=== PATIENT | female | born 1950 | race Caucasian/White ===

== ENCOUNTER → 2018-06-01 16:18 | Outpatient (CLI) | payer MEDICARE, BC, SELFPAY ==
--- NOTE | 2018-05-31 11:31 | DI.RAD_ITS ---
SYMPTOMS/DIAGNOSIS: LUQ PAIN, R10.12, LLQ PAIN, R10.32, DIVERTICULITIS, K57.92 , DIVERTICULOSIS, K57.90 ABDOMEN: Two views were obtained. The bowel gas pattern is within normal limits. No free intraperitoneal air is seen on these supine views. No other specific abnormality is seen.
== END ==
PROVIDERS: Visit Provider Internal Medicine Gastroenterology
DX: R10.12 Left upper quadrant pain (principal); R10.32 Left lower quadrant pain; K57.90 Diverticulosis of intestine, part unspecified, without perforation or abscess without bleeding
CPT/HCPCS: 74018

== ENCOUNTER 2018-06-10 01:52 | Outpatient (CLI) | payer MEDICARE, BC, SELFPAY ==
[2018-06-10 14:27] LABS: Hemoglobin A1C 5.1 % (4.5-6.2)
[2018-06-10 15:00] LABS: Anion Gap 10.8 mmol/L (3-11); BUN 13 mg/dL (7-18); CO2 28.2 mmol/L (21.0-32.0); CREATININE 0.77 mg/dL (0.55-1.02); Calcium 9.9 mg/dL (8.5-10.1); Chloride 104 mmol/L (98-107); Glucose 121 mg/dL (70-100); Potassium 3.8 mmol/L (3.5-5.1); Sodium 143 mmol/L (136-145); TSH (W/Ref FT4) 0.32 uIU/mL (0.358-3.74)
[2018-06-10 15:25] LABS: FREE T4 1.34 ng/dL (0.76-1.46)
== END 2018-06-10 02:12 ==
DX: I10 Essential (primary) hypertension (principal); E03.9 Hypothyroidism, unspecified; R73.09 Other abnormal glucose
CPT/HCPCS: 36415; 80048; 83036; 84439; 84443

== ENCOUNTER 2018-08-19 00:17 | Outpatient (CLI) | payer MEDICARE, BC, SELFPAY ==
[2018-08-19] MEDS: Breeza Beverage 473 ML BTL PO ×2 (10:12→10:13)
[2018-08-19] MEDS: Omnipaque 350 MG/ML 50 ML BTL PO (10:13)
[2018-08-19 10:26] LABS: CREATININE 0.72 mg/dL (0.55-1.02)
[2018-08-19] MEDS: Omnipaque 350 MG/ML 100 ML BTL IJ (11:10)
--- NOTE | 2018-08-19 11:12 | DI.CT_ITS ---
SYMPTOMS/DIAGNOSIS: STENOSIS OF ANUS AND RECTUM, DIVERTICULITIS CT OF THE ABDOMEN AND PELVIS: The study was carried out with an intravenous administration of 100 cc of Omnipaque 350 and oral ingestion of dilute Omnipaque. The lung bases are unremarkable. The liver, gallbladder and adrenals are unremarkable. There are diffuse areas of distal descending and sigmoid diverticulosis with evidence of an abscess and phlegmon adjacent to the lateral border of the colon. Free fluid is noted in the gutter and there is a small quantity of pelvic free fluid. The bladder is incompletely distended. The reproductive organs as visualized are intact. Bilateral ovarian cysts are seen. There is no evidence of an aortic aneurysm. No significant hernia is identified. There are degenerative changes involving the lower lumbar spine with a narrowed vacuum disc at L5-S1, discogenic sclerosis and hypertrophic spurring and a grade 2 spondylolisthesis is evident.
== END 2018-08-19 00:37 ==
PROVIDERS: Visit Provider Internal Medicine Gastroenterology
DX: K62.4 Stenosis of anus and rectum (principal); K57.30 Diverticulosis of large intestine without perforation or abscess without bleeding; Z13.89 Encounter for screening for other disorder
CPT/HCPCS: 74177; 82565; J3490; Q9967

== ENCOUNTER 2018-11-10 00:38 | Outpatient (CLI) | payer MEDICARE, BC, SELFPAY ==
[2018-11-10] MEDS: Omnipaque 350 MG/ML 50 ML BTL PO (09:38)
[2018-11-10] MEDS: Breeza Beverage 473 ML BTL PO ×2 (09:38→09:39)
[2018-11-10 09:41] LABS: Glucose 95 mg/dL (70-100)
[2018-11-10 09:55] LABS: CREATININE 1.31 mg/dL (0.55-1.02); Estimated GFR 40.38 (mL/min/1.73m2)
--- NOTE | 2018-11-10 10:43 | DI.CT_ITS ---
SYMPTOMS/DIAGNOSIS: LUQ PAIN, R10.12, LLQ PAIN, R10.32, DIVERTICULITIS, K57.[address]: CT examination of the abdomen and pelvis was performed with oral contrast only due to impaired renal function. Images obtained through the lung bases are unremarkable. The liver, spleen and pancreas are unremarkable in appearance by noncontrast criteria. The gallbladder and bile ducts appear normal. The adrenals and kidneys appear normal. No urinary tract calcification or obstruction. No significant abdominal wall hernia seen. No significant abdominal or pelvic adenopathy. The appendix is normal. There is long segment of descending and sigmoid colon with markedly thickened wall with pericolonic increased fat attenuation and stranding. The findings are consistent with diverticulitis. No evidence of perforation or abscess formation. No evidence of obstruction. Note is made of a mildly heterogeneous low attenuation 31 mm mass of the left adnexa, this likely to represent an ovarian mass and is unchanged in size and appearance in comparison with examination of 06/04/17. CONCLUSION: Findings consistent with diverticulitis, no evidence of perforation or abscess formation. No evidence of obstruction.
== END 2018-11-10 00:58 ==
PROVIDERS: Visit Provider Internal Medicine Gastroenterology
DX: R10.12 Left upper quadrant pain (principal); R10.32 Left lower quadrant pain; K57.30 Diverticulosis of large intestine without perforation or abscess without bleeding; K57.33 Diverticulitis of large intestine without perforation or abscess with bleeding; N28.9 Disorder of kidney and ureter, unspecified; N83.9 Noninflammatory disorder of ovary, fallopian tube and broad ligament, unspecified; L40.9 Psoriasis, unspecified; E03.9 Hypothyroidism, unspecified; I10 Essential (primary) hypertension; G47.00 Insomnia, unspecified; Z85.3 Personal history of malignant neoplasm of breast; Z01.812 Encounter for preprocedural laboratory examination; R73.09 Other abnormal glucose
CPT/HCPCS: 36415; 82947; 74176; 82565; 84443; Q9967

== ENCOUNTER 2019-01-31 00:51 | Outpatient (CLI) | payer MEDICARE, BC, SELFPAY ==
[2019-01-31 09:13] LABS: Anion Gap 9.1 mmol/L (3-11); BUN 17 mg/dL (7-18); CO2 24.9 mmol/L (21.0-32.0); CREATININE 1.24 mg/dL (0.55-1.02); Calcium 9.2 mg/dL (8.5-10.1); Chloride 97 mmol/L (98-107); Estimated GFR 43.02 (mL/min/1.73m2); Glucose 84 mg/dL (70-100); Sodium 131 mmol/L (136-145)
[2019-01-31] MEDS: Omnipaque 350 MG/ML 100 ML BTL IJ (10:18)
[2019-01-31] MEDS: Breeza Beverage 473 ML BTL PO (10:19)
[2019-01-31] MEDS: Omnipaque 350 MG/ML 50 ML BTL PO (10:19)
--- NOTE | 2019-01-31 10:19 | DI.CT_ITS ---
SYMPTOM/DIAGNOSIS: DIVERTICULITIS, K57.80, LLQ PAIN, R10.[address]: CT scan of the abdomen and pelvis was performed following oral and intravenous contrast material. Comparison examinations are 08/19/18 and 11/10/18. There is again seen bowel wall thickening involving a portion of the distal descending colon and the proximal sigmoid colon. There are several diverticula in the region. Overall the degree of bowel wall thickening appears slightly decreased compared to 11/10/18. There also appears to be decrease in the amount of pericolonic inflammatory change compared to the prior examination. There is however persistent encapsulated fluid collection lateral to the bowel in this region. This measures 2.8 by 2.2 cm. compared with 3.1 by 2.5 cm. The findings are most suggestive of a persistent abscess. No new abscess is appreciated. The remainder of the bowel appears grossly unremarkable. There is a persistent 3.1 cm. left adnexal cystic lesion. This is unchanged compared to the prior examination. No acute findings are seen in the lung bases. The liver, gallbladder, bile ducts, pancreas, spleen and adrenal glands are unremarkable. The kidneys, ureters and bladder are unremarkable. The abdominal aorta is of normal caliber with mild atherosclerosis. The portal, superior mesenteric and splenic veins are patent. No significant abdominal or pelvic adenopathy is appreciated. There is L 5 spondylolysis and grade I spondylolisthesis of L 5 on S 1. There is now a compression fracture of the superior endplate of L 1. This was not present on 11/10/18. There is loss of approximately a quarter of the height of the vertebral body anteriorly. No significant central spinal canal stenosis results. IMPRESSION: 1. Persistent inflammatory changes in the distal descending colon and proximal sigmoid colon consistent with acute diverticulitis. Slight decrease in size of the pericolonic abscess since 11/10/18. 2. Stable 3.1 cm. left adnexal cystic lesion. 3. Compression fracture of the superior endplate of L 1. Loss of approximately one quarter of the height of the vertebral body anteriorly is noted. This fracture is acute to subacute. It was not present on the most recent examination to show the lumbar spine from 11/10/18. If further imaging is warranted, an MRI may be obtained.
== END 2019-01-31 01:11 ==
PROVIDERS: Visit Provider Internal Medicine Gastroenterology
DX: I10 Essential (primary) hypertension (principal); R10.84 Generalized abdominal pain; R10.32 Left lower quadrant pain; N83.8 Other noninflammatory disorders of ovary, fallopian tube and broad ligament; K57.30 Diverticulosis of large intestine without perforation or abscess without bleeding; M48.56XA Collapsed vertebra, not elsewhere classified, lumbar region, initial encounter for fracture; Z01.812 Encounter for preprocedural laboratory examination
CPT/HCPCS: 80048; 74177; J3490; Q9967

== ENCOUNTER 2019-02-22 07:24 | Inpatient (IN) | payer MEDICARE, BC, SELFPAY ==
[2019-02-22] VITALS (13 sets, daily range): BP systolic 115–156; BP diastolic 64–84; PULSE 69–106; RESP 16–19; TEMP 36.9–37.4; O2SAT 96–100
--- NOTE | 2019-02-22 07:37 | W.ED.GENAD ---
Discharge Plan Disposition Patient Disposition: [facility] INPATIENT Condition: Stable Discharge Details Chief Complaint: Abd Prob Clinical Impression: Diverticulitis of large intestine with abscess Primary Care Provider: Deepthi Whitehead ED Provider: Silverio Freedman Home Meds and New Rx's Prescriptions: No Action cholecalciferol (vitamin D3) 1,000 unit capsule 1,000 unit PO DAILY RF: 0 calcium carbonate-vitamin D3 1,000 mg(2,500 mg)-800 unit tablet PO DAILY RF: 0 polyethylene glycol 3350 [Miralax] 17 gram powder in packet 17 gm PO DAILY RF: 0 allopurinol 100 mg tablet 200 mg PO DAILY Qty: 180 RF: 3 diazepam 5 mg tablet 5 mg PO BID Qty: 6 RF: 0 levothyroxine 125 mcg capsule 125 mcg PO DAILY Qty: 90 RF: 3 lisinopril 20 mg tablet 20 mg PO DAILY Qty: 90 RF: 3 Medical Decision Making <Vincenzo Colon MD - Last Filed: 02/22/19 07:42> 68 yo female who states she has a hx of diverticulitis who comes in with chief complaint of no bowel movement for 3+ days and abdominal pain she describes as distention and gassy in the lower abdomen. She denies fevers. she states she recently came off oral abx that she was more or less on for 3 months a few weeks ago. She saw her GI specialist last week and was told they can stop the abx and see what happens and that if it recurred she may need surgery for an abscess. She has a soft non distended abdomen on exam with tenderness throughout the lower abdomen without guarding or rebound. Will try and obtain records from her GI specialist at [place] to better understand what she's had done recently and obtain lab work and ct imaging to eval for possible diverticulitis, abscess, sbo. Pt remains hd stable, pt signed out to oncoming provider pending lab work and imaging results. Differential Diagnosis sbo, diverticulitis, colitis <Silverio Freedman MD - Last Filed: 02/22/19 11:12> Received signout from Dr. Colon, please see his note regarding details of the presentation, initial exam and plan of care. Patient has had a long-standing sigmoid abscess, most recently taking Bactrim twice daily for at least 2 months. She has been off of antibiotics and now presents with recurrent left-sided abdominal pain and bloating. Her CT scan reveals left lower quadrant approximately 3 cm abscess with surrounding inflammatory changes and proximal dilation of the colon. Antibiotics initiated. Seen in consultation by Dr. Tapia and will be admitted to the hospital HPI <Vincenzo Colon MD - Last Filed: 02/22/19 07:42> General Mode of arrival: ambulatory. Date/Time Provider Initiated Documentation: 02/22/19 07:29. Limitations to Documentation: no limitations. Information obtained by: patient. History of Present Illness 68 year old F presents to the emergency department with the chief complaint of abdominal pain, described as moderate, Quality is described as other (gassy), and is localized to the abdomen. Patient reports no radiation. Patient started experiencing this day(s) (3) and it has been intermittent. No relieving factors improve symptom(s), No exacerbating factors reported . Patient notes other (constipation). Related Data Home Medications Medication Instructions Recorded Confirmed calcium carbonate-vitamin D3 1,000 tab PO DAILY tab 06/02/18 10/20/18 mg (2,500 mg)-800 unit tablet cholecalciferol (vitamin D3) 1,000 1,000 unit PO DAILY 06/02/18 02/22/19 unit capsule polyethylene glycol 3350 17 gram 17 gm PO DAILY 06/02/18 02/22/19 oral powder packet allopurinol 100 mg tablet 200 mg PO DAILY #180 tab 10/20/18 02/22/19 diazepam 5 mg tablet 5 mg PO BID #6 tab 10/20/18 02/22/19 levothyroxine 125 mcg capsule 125 mcg PO DAILY #90 cap 10/20/18 02/22/19 lisinopril 20 mg tablet 20 mg PO DAILY #90 tab 10/20/18 02/22/19 Previous Rx's Medication Instructions Recorded allopurinol 100 mg tablet 200 mg PO DAILY #180 tab 10/20/18 diazepam 5 mg tablet 5 mg PO BID #6 tab 10/20/18 levothyroxine 125 mcg capsule 125 mcg PO DAILY #90 cap 10/20/18 lisinopril 20 mg tablet 20 mg PO DAILY #90 tab 10/20/18 Allergies Allergy/AdvReac Type Severity Reaction Status Date / Time ciprofloxacin AdvReac Intermediate Nausea, Verified 02/22/19 07:32 vomiting metronidazole AdvReac Intermediate Nausea Verified 02/22/19 07:32 scallop AdvReac Severe GI Upset Uncoded 02/22/19 07:32 General Stated Complaint: Abd Prob ROOPA: 3 Review of Systems <Vincenzo Colon MD - Last Filed: 02/22/19 07:42> Review of Systems All systems reviewed & are unremarkable except as noted in HPI and below Constitutional Denies chills, Denies fever(s) and Denies weakness Eyes Denies loss of vision Cardiovascular Denies chest pain and Denies dyspnea Respiratory Denies cough and Denies dyspnea Gastrointestinal Denies vomiting Musculoskeletal Denies joint swelling Integumentary/Breasts Denies rash Neurologic Denies loss of vision and Denies weakness PFSH <Vincenzo Colon MD - Last Filed: 02/22/19 07:42> Medical History Diverticulitis of large intestine with abscess (Acute) Abdominal discomfort, generalized (Acute) Psoriasis (Acute) Hypothyroidism (Acute 07/13/13) Essential hypertension (Acute 07/13/13) Diverticulosis of large intestine without hemorrhage (Acute 10/17/15) DCIS (ductal carcinoma in situ) of breast (Acute 06/29/12) Arthritis (Acute 03/23/16) Impetigo (Acute) Breast cancer Diverticulitis Hypertension Hypothyroidism Psoriasis Surgical History Breast, Lumpectomy Breast, Mastectomy Colonoscopy - IV Sedation Extraction of cataract Social History Smoking/Tobacco Use Status: Former Tobacco Use Quit Date: 09/27/03 Alcohol Intake: current Alcohol Intake frequency: 3 or more drinks per day Alcohol type: hard liquor Drug use: Never Substance use type: does not use Household members: none Pets and animals: No Sexually active: No Current gender identity: female What type of physical activity do you participate in: none Duration: 30-45 minutes/day Frequency: 5-6 times per week Dipti/Orthodoxy: Muslim Special dipti needs: No Do you feel safe at home: Yes Do you feel safe in your relationship?: Yes Exam <Vincenzo Colon MD - Last Filed: 02/22/19 07:42> Const General: no acute distress Orientation: alert HENMT Head: normal to inspection Ears: external ears normal General nose exam: external nose normal Mouth: moist mucous membranes Eyes General: appearance normal, both eyes and all related structures Neck Neck: normal visual inspection Resp Effort & Inspection: normal respiratory effort and able to speak in complete sentences Cardio Rate: regular rate GI Palpation: soft Skin General skin exam: no rashes or lesions noted Neuro General: alert and oriented x3 Extrem General: normal to inspection Psych Mental Status: mental status grossly normal Course <Vincenzo Colon MD - Last Filed: 02/22/19 07:42> Vital Signs Temperature 36.9 C 02/22/19 07:28 Pulse 106 H 02/22/19 07:28 Respiratory Rate 16 02/22/19 07:28 Blood Pressure 140/72 02/22/19 07:28 Pulse Oximetry 100 02/22/19 07:28 Temperature 36.9 C 02/22/19 07:28 Temperature Source Temporal Artery Scan 02/22/19 07:28 Pulse 106 H 02/22/19 07:28 Respiratory Rate 16 02/22/19 07:28 Blood Pressure 140/72 02/22/19 07:28 Blood Pressure Position Sitting 02/22/19 07:28 Pulse Oximetry 100 02/22/19 07:28 Oxygen Delivery Method Room Air 02/22/19 07:28 Oxygen Flow Rate 0 02/22/19 07:28 Pain Level 8 02/22/19 07:28 Sign Out <Vincenzo Colon MD - Last Filed: 02/22/19 07:42> Sign Out Data: Sign Out Comment: follow up on lab results and ct imaging and if records are obtained from her gi specialist at [facility]/ on these Last updated by Vincenzo Colon MD at 02/22/19 07:42
--- NOTE | 2019-02-22 07:38 | DI.CT_ITS ---
SYMPTOM/DIAGNOSIS: NAUSEA, CONSTIPATION, LOW ABD PAIN, F/U ABSCESS, H/O DIVERTICULITIS ABDOMEN AND PELVIC CT: The study was carried out according to the usual protocol with an intravenous administration of 60 cc's of Omnipaque 350. When compared with the prior study, again noted is a left lower quadrant diverticular abscess. The region measures up to 3 cm. in diameter on today's examination versus 2.5 cm. on the prior study. There is diffuse thickening of the colonic wall at and below the level of the abscess. Inflammatory changes are noted in the adjacent fat and there is a small quantity of free fluid. Also note is made of a sizable quantity of free fluid in the pelvis. There is considerable dilatation of the colon proximal to the abscess containing gas and fluid. The bladder is intact. When compared with the previous examination, again noted is a left adnexal cyst. There is no evidence of free air in the abdomen or pelvis. The lung bases are unremarkable. The liver, gallbladder, pancreas, spleen and kidneys are unremarkable. No small bowel abnormality is seen. SUMMARY: A persistent pericolonic abscess is noted in the left lower quadrant, today measuring up to 3 cm. in maximal diameter. There is associated inflammatory change and fluid and a large quantity of fluid is noted in the pelvis. There is considerable dilatation of the colon proximal to the abscess which would be consistent with colonic obstruction.
--- NOTE | 2019-02-22 07:42 | ED.GENADUL_ITS ---
Discharge Plan Disposition Patient Disposition: [facility] INPATIENT Condition: Stable Discharge Details Chief Complaint: Abd Prob Clinical Impression: Diverticulitis of large intestine with abscess Primary Care Provider: Deepthi Whitehead ED Provider: Silverio Freedman Home Meds and New Rx's Prescriptions: No Action cholecalciferol (vitamin D3) 1,000 unit capsule 1,000 unit PO DAILY RF: 0 calcium carbonate-vitamin D3 1,000 mg(2,500 mg)-800 unit tablet PO DAILY RF: 0 polyethylene glycol 3350 [Miralax] 17 gram powder in packet 17 gm PO DAILY RF: 0 allopurinol 100 mg tablet 200 mg PO DAILY Qty: 180 RF: 3 diazepam 5 mg tablet 5 mg PO BID Qty: 6 RF: 0 levothyroxine 125 mcg capsule 125 mcg PO DAILY Qty: 90 RF: 3 lisinopril 20 mg tablet 20 mg PO DAILY Qty: 90 RF: 3 Medical Decision Making <Vincenzo Colon MD - Last Filed: 02/22/19 07:42> 68 yo female who states she has a hx of diverticulitis who comes in with chief complaint of no bowel movement for 3+ days and abdominal pain she describes as distention and gassy in the lower abdomen. She denies fevers. she states she recently came off oral abx that she was more or less on for 3 months a few weeks ago. She saw her GI specialist last week and was told they can stop the abx and see what happens and that if it recurred she may need surgery for an abscess. She has a soft non distended abdomen on exam with tenderness throughout the lower abdomen without guarding or rebound. Will try and obtain records from her GI specialist at [place] to better understand what she's had done recently and obtain lab work and ct imaging to eval for possible diverticulitis, abscess, sbo. Pt remains hd stable, pt signed out to oncoming provider pending lab work and imaging results. Differential Diagnosis sbo, diverticulitis, colitis <Silverio Freedman MD - Last Filed: 02/22/19 11:12> Received signout from Dr. Colon, please see his note regarding details of the presentation, initial exam and plan of care. Patient has had a long-standing sigmoid abscess, most recently taking Bactrim twice daily for at least 2 months. She has been off of antibiotics and now presents with recurrent left-sided abdominal pain and bloating. Her CT scan reveals left lower quadrant approx imately 3 cm abscess with surrounding inflammatory changes and proximal dilation of the colon. Antibiotics initiated. Seen in consultation by Dr. Tapia and will be admitted to the hospital HPI <Vincenzo Colon MD - Last Filed: 02/22/19 07:42> General Mode of arrival: ambulatory . Date/Time Provider Initiated Documentation: 02/22/19 07:29 . Limitations to Documentation: no limitations . Information obtained by: patient . History of Present Illness 68 year old F presents to the emergency department with the chief complaint of abdominal pain, described as moderate, Quality is described as other (gassy), and is localized to the abdomen. Patient reports no radiation. Patient started experiencing this day(s) (3) and it has been intermittent. No relieving factors improve symptom(s), No exacerbating factors reported . Patient notes other (constipation). Related Data Home Medications Medication Instructions Recorded Confirmed calcium carbonate-vitamin D3 1,000 tab PO DAILY tab 06/02/18 10/20/18 mg (2,500 mg)-800 unit tablet cholecalciferol (vitamin D3) 1,000 1,000 unit PO DAILY 06/02/18 02/22/19 unit capsule polyethylene glycol 3350 17 gram 17 gm PO DAILY 06/02/18 02/22/19 oral powder packet allopurinol 100 mg tablet 200 mg PO DAILY #180 tab 10/20/18 02/22/19 diazepam 5 mg tablet 5 mg PO BID #6 tab 10/20/18 02/22/19 levothyroxine 125 mcg capsule 125 mcg PO DAILY #90 cap 10/20/18 02/22/19 lisinopril 20 mg tablet 20 mg PO DAILY #90 tab 10/20/18 02/22/19 Previous Rx's Medication Instructions Recorded allopurinol 100 mg tablet 200 mg PO DAILY #180 tab 10/20/18 diazepam 5 mg tablet 5 mg PO BID #6 tab 10/20/18 levothyroxine 125 mcg capsule 125 mcg PO DAILY #90 cap 10/20/18 lisinopril 20 mg tablet 20 mg PO DAILY #90 tab 10/20/18 Allergies Allergy/AdvReac Type Severity Reaction Status Date / Time ciprofloxacin AdvReac Intermediate Nausea, Verified 02/22/19 07:32 vomiting metronidazole AdvReac Intermediate Nausea Verified 02/22/19 07:32 scallop AdvReac Severe GI Upset Uncoded 02/22/19 07:32 General Stated Complaint: Abd Prob ROOPA: 3 Review of Systems <Vincenzo Colon MD - Last Filed: 02/22/19 07:42> Review of Systems All systems reviewed & are unremarkable except as noted in HPI and below Constitutional Denies chills, Denies fever(s) and Denies weakness Eyes Denies loss of vision Cardiovascular Denies chest pain and Denies dyspnea Respiratory Denies cough and Denies dyspnea Gastrointestinal Denies vomiting Musculoskeletal Denies joint swelling Integumentary/Breasts Denies rash Neurologic Denies loss of vision and Denies weakness PFSH <Vincenzo Colon MD - Last Filed: 02/22/19 07:42> Medical History Diverticulitis of large intestine with abscess (Acute) Abdominal discomfort, generalized (Acute) Psoriasis (Acute) Hypothyroidism (Acute 07/13/13) Essential hypertension (Acute 07/13/13) Diverticulosis of large intestine without hemorrhage (Acute 10/17/15) DCIS (ductal carcinoma in situ) of breast (Acute 06/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) Arthritis (Acute 03/23/16) Impetigo (Acute) Breast cancer Diverticulitis Hypertension Hypothyroidism Psoriasis Surgical History Breast, Lumpectomy Breast, Mastectomy Colonoscopy - IV Sedation Extraction of cataract Social History Smoking/Tobacco Use Status: Former Tobacco Use Quit Date: 09/27/03 Alcohol Intake: current Alcohol Intake frequency: 3 or more drinks per day Alcohol type: hard liquor Drug use: Never Substance use type: does not use Household members: none Pets and animals: No Sexually active: No Current gender identity: female What type of physical activity do you participate in: none Duration: 30-45 minutes/day Frequency: 5-6 times per week Dipti/Restorationism: Pentecostalism Special dipti needs: No Do you feel safe at home: Yes Do you feel safe in your relationship?: Yes Exam <Vincenzo Colon MD - Last Filed: 02/22/19 07:42> Const General: no acute distress Orientation: alert HENMT Head: normal to inspection Ears: external ears normal General nose exam: external nose normal Mouth: moist mucous membranes Eyes General: appearance normal, both eyes and all related structures Neck Neck: normal visual inspection Resp Effort & Inspection: normal respiratory effort and able to speak in complete sentences Cardio Rate: regular rate GI Palpation: soft Skin General skin exam: no rashes or lesions noted Neuro General: alert and oriented x3 Extrem General: normal to inspection Psych Mental Status: mental status grossly normal Course <Vincenzo Colon MD - Last Filed: 02/22/19 07:42> Vital Signs Temperature 36.9 C 02/22/19 07:28 Pulse 106 H 02/22/19 07:28 Respiratory Rate 16 02/22/19 07:28 Blood Pressure 140/72 02/22/19 07:28 Pulse Oximetry 100 02/22/19 07:28 Temperature 36.9 C 02/22/19 07:28 Temperature Source Temporal Artery Scan 02/22/19 07:28 Pulse 106 H 02/22/19 07:28 Respiratory Rate 16 02/22/19 07:28 Blood Pressure 140/72 02/22/19 07:28 Blood Pressure Position Sitting 02/22/19 07:28 Pulse Oximetry 100 02/22/19 07:28 Oxygen Delivery Method Room Air 02/22/19 07:28 Oxygen Flow Rate 0 02/22/19 07:28 Pain Level 8 02/22/19 07:28 Sign Out <Vincenzo Colon MD - Last Filed: 02/22/19 07:42> Sign Out Data: Sign Out Comment: follow up on lab results and ct imaging and if records are obtained from her gi specialist at [facility] on these Last updated by Vincenzo Colon MD at 02/22/19 07:42
[2019-02-22] MEDS: Normal Saline Flush 10 ML SYR IVP ×3 (07:48→13:35)
[2019-02-22] MEDS: Ondansetron 4 MG/2 ML VIAL IVP ×2 (07:48→15:51)
[2019-02-22] MEDS: Normal Saline 1,000 ML 1000 ML IV (07:49)
[2019-02-22 07:51] LABS: Abs Immature Grans 0.03 k/cumm (0.0-0.09); Absolute Basophil Count 0.02 k/cumm (0.0-0.2); Absolute Eosinophil Count 0.11 k/cumm (0.0-0.7); Absolute Lymphocyte Count 0.66 k/cumm (1.2-3.4); Absolute Monocyte Count 0.63 k/cumm (0.11-0.7); Absolute Neutrophil Count 7.68 k/cumm (1.2-6.7); Basophils % 0.2; Eosinophils % 1.2; HCT 38.4 % (36.0-46.0); HGB 12.8 g/dL (12.0-15.5); Immature Grans % 0.3; Lymphocytes % 7.2; Mean Corp. HGB Concentration 33.3 g/dL (32.0-36.0); Mean Corpuscular Hemoglobin 33.5 pg (27.0-33.0); Mean Corpuscular Volume 100.5 fL (80-95); Mean Platelet Volume 8.2 fL (8.0-11.0); Monocytes % 6.9; Neutrophils % 84.2; Platelet Count 366 x1000/uL (130-400); RBC 3.82 m/cumm (4.00-5.20); RBC Distribution Width 13.1 % (11.7-14.6); White Blood Cell Count 9.13 k/cumm (4.4-10.8)
[2019-02-22 08:02] LABS: ALT 35 U/L (12-78); AST 18 U/L (15-37); Albumin 3.2 g/dL (3.4-5.0); Alkaline Phosphatase 135 U/L (46-116); Anion Gap 14.7 mmol/L (3-11); BUN 12 mg/dL (7-18); Bilirubin, Total 0.4 mg/dL (0.2-1.0); CO2 22.3 mmol/L (21.0-32.0); CREATININE 0.82 mg/dL (0.55-1.02); Calcium 9.8 mg/dL (8.5-10.1); Chloride 101 mmol/L (98-107); Glucose 107 mg/dL (70-100); Lipase 67 U/L (73-393); Magnesium 1.6 mg/dL (1.8-2.4); Potassium 3.9 mmol/L (3.5-5.1); Sodium 138 mmol/L (136-145); Total Protein 6.5 g/dL (6.4-8.2)
[2019-02-22 08:06] LABS: PTT Activated 30.3 sec (21.0-31.4); Prothrombin Time 9.9 sec (9.3-11.0)
[2019-02-22] MEDS: Omnipaque 350 MG/ML 100 ML BTL IJ (09:45)
[2019-02-22] MEDS: Normal Saline 1,000 ML 125 ML IV (10:39)
[2019-02-22] MEDS: PIPERACILLIN/TAZO 3.375 GM in Normal Saline 50 ML IVPB ×3 (10:39→21:47)
--- NOTE | 2019-02-22 10:44 | W.PM.HP.N ---
Date of service: 02/22/19 Time of Service: 10:53 Assessment and Plan (1) Diverticulitis of large intestine with abscess: Current visit: Yes Status: Acute A\\ Diverticulitis with abscess. Treated as outpatient for 3 months. Attempt at drainage at [facility] [place] [place] Discussed plan with patient. I am not sure if we can avoid surgery with resection and colostomy but as she has never had IV antibiotics I think its worse trying to treat her with IV fluids, bowel rest and IV antibiotics. I also will call [facility] [place] [place] and talk to IR and see if they can review the CT scan from today and see if they feel they could try again to place a drain. I discussed with Mrs. Manzo that if she fails to improve with IV antibiotics then she unfortunately will need a sigmoid colectomy with either a colostomy or a loop ileostomy to protect the anastamosis. I would also ask for Dr. Wylie to place stents into her ureters. P\\ Admit to Med/Surg Diet: NPO IV fluids: LR @ 125cc/hr Activity: up as tolerated DVT prophilaxis: Lovenox 40 mg IV daily GI prophilaxis: Pepcid IV 20 mg BID Antibiotics: Zosyn 3.375 mg IV q6 hours Recheck labs in am Will call [facility] [place] [place] and discuss with IR Qualifiers: Diverticulitis bleeding: without bleeding Qualified Code(s): K57.20 - Diverticulitis of large intestine with perforation and abscess without bleeding History of Present Illness Chief Complaint: LLQ pain Consults Consult date: 02/22/19 Requesting physician: Silverio Freedman Narrative: Mrs Manzo is a pleasant 68 year old female who has had several episodes of diverticulitis. This last episode started 3 months ago. She has been treated with po antibiotics on and off for 3 months. She has never been hospitalized for IV antibiotics. She did have an attempt at a drain placement at [facility] [place] [place] and she tells me they took fluid out for culture but didn't leave a drain in place. She just stopped her last coearse of Bactrim 1 week ago and woke up at midnight with increasing LLQ pain. Her last BM was 3 days ago. She has had N/V and feels bloated as well as the pain. Labs show a normal WBC count, PLt's are normal. No left shift CT scan showed diverticulitis with a 3 cm abscess. There is free fluid in the pelvis. No free air. Her sigmoid colon is edematous and basically obstructed at this point. Review of Systems Constitutional Denies fever(s), Denies headache(s) and Reports poor appetite Eyes Denies change in vision ENT Denies headache(s) Cardiovascular Denies chest pain, Denies chest pain at rest, Denies chest pain with activity, Denies rapid heart rate, Denies palpitations, Denies dyspnea and Denies dyspnea on exertion Respiratory Denies cough, Denies dyspnea and Denies dyspnea on exertion Gastrointestinal Reports system reviewed and no additional complaints, except as docu Genitourinary Denies urinary frequency and Denies dysuria Neurologic Denies headache(s) Endocrine Denies palpitations Hematologic/Lymphatic Denies easy bleeding and Denies easy bruising [facility] Medical History Abdominal discomfort, generalized (Acute) Psoriasis (Acute) Hypothyroidism (Acute 07/13/13) Essential hypertension (Acute 07/13/13) Diverticulosis of large intestine without hemorrhage (Acute 10/17/15) DCIS (ductal carcinoma in situ) of breast (Acute 06/29/12) Arthritis (Acute 03/23/16) Impetigo (Acute) Breast cancer Diverticulitis Hypertension Hypothyroidism Psoriasis Surgical History Breast, Lumpectomy Breast, Mastectomy Colonoscopy - IV Sedation Extraction of cataract Social History Smoking/Tobacco Use Status: Former Tobacco Use Quit Date: 09/27/03 Alcohol Intake: current Alcohol Intake frequency: 3 or more drinks per day Alcohol type: hard liquor Drug use: Never Substance use type: does not use Household members: none Pets and animals: No Sexually active: No Current gender identity: female What type of physical activity do you participate in: none Duration: 30-45 minutes/day Frequency: 5-6 times per week Jen/Mu-Ism: Buddhism Special jen needs: No Do you feel safe at home: Yes Do you feel safe in your relationship?: Yes Meds Home Medications Medication Instructions Recorded Confirmed Type calcium carbonate-vitamin D3 1,000 tab PO DAILY tab 06/02/18 10/20/18 History mg (2,500 mg)-800 unit tablet cholecalciferol (vitamin D3) 1,000 1,000 unit PO DAILY 06/02/18 02/22/19 History unit capsule polyethylene glycol 3350 17 gram 17 gm PO DAILY 06/02/18 02/22/19 History oral powder packet allopurinol 100 mg tablet 200 mg PO DAILY #180 tab 10/20/18 02/22/19 Rx diazepam 5 mg tablet 5 mg PO BID #6 tab 10/20/18 02/22/19 Rx levothyroxine 125 mcg capsule 125 mcg PO DAILY #90 cap 10/20/18 02/22/19 Rx lisinopril 20 mg tablet 20 mg PO DAILY #90 tab 10/20/18 02/22/19 Rx Allergies Allergy/AdvReac Type Severity Reaction Status Date / Time ciprofloxacin AdvReac Intermediate Nausea, Verified 02/22/19 07:32 vomiting metronidazole AdvReac Intermediate Nausea Verified 02/22/19 07:32 scallop AdvReac Severe GI Upset Uncoded 02/22/19 07:32 Exam Const General: cooperative, comfortable and no acute distress Orientation: alert and oriented x3 HENMT Head: normocephalic and atraumatic Eyes Pupils: PERRL Resp Effort & Inspection: normal respiratory effort Auscultation: clear to auscultation bilaterally Cardio Rate: regular rate Rhythm: regular rhythm Heart Sounds: no gallops, no murmurs and no rubs GI Inspection: normal to inspection Palpation: soft, no hepatosplenomegaly and tender in the LLQ (guarding, no rebound) Auscultation: normal bowel sounds Rectal Exam - female: deferred Results Labs : 02/22/19 07:43 02/22/19 07:43 Laboratory Results - last 24 hr 02/22/19 02/22/19 02/22/19 07:43 07:43 07:43 WBC 9.13 RBC 3.82 L Hgb 12.8 Hct 38.4 MCV 100.5 H MCH 33.5 H MCHC 33.3 RDW 13.1 Plt Count 366 MPV 8.2 Immature Gran % 0.3 Neutrophils % 84.2 Lymphocytes % 7.2 Monocytes % 6.9 Eosinophils % 1.2 Basophils % 0.2 Absolute Neutrophils 7.68 H Absolute Lymphocytes 0.66 L Absolute Monocytes 0.63 Absolute Eosinophils 0.11 Absolute Basophils 0.02 PT 9.9 INR 1.0 APTT 30.3 Sodium 138 Potassium 3.9 Chloride 101 Carbon Dioxide 22.3 Anion Gap 14.7 H BUN 12 Creatinine 0.82 Estimated GFR/1.73 m2 >= 60.00 Glucose 107 H Calcium 9.8 Magnesium 1.6 L Total Bilirubin 0.4 AST 18 ALT 35 Alkaline Phosphatase 135 H Total Protein 6.5 Albumin 3.2 L Lipase 67 L Last Vital Signs Temp 98.4 F 02/22/19 07:28 Pulse 106 H 02/22/19 07:28 Resp 16 02/22/19 07:28 BP 140/72 02/22/19 07:28 Pulse Ox 100 02/22/19 07:28
[2019-02-22] MEDS: Lactated Ringers 1,000 ML 125 ML IV ×2 (12:16→23:30)
[2019-02-22] MEDS: FAMOTIDINE 20 MG/50 ML BAG 200 MG IVPB ×2 (12:16→23:35)
[2019-02-22] MEDS: MAGNESIUM SULFATE 2 GM/50 ML BAG IVPB (13:05)
[2019-02-22] MEDS: Metoprolol 5 MG/5 ML VIAL 2.5 MG IVP (13:35)
[2019-02-22] MEDS: Ketorolac 15 MG/ML VIAL IVP (15:51)
--- NOTE | 2019-02-22 16:46 | W.PM.PROGNOT ---
Date of Service Date of service: 02/22/19 Time of Service: 16:46 Assessment and Plan (1) Diverticulitis of large intestine with abscess: Current visit: Yes Status: Acute A\\ Diverticulitis with abscess and sigmoid colon obstruction P\\ [place]iscuss[place] [facility] [place] They will plan on CT guided drainage procedure on Wednesday. I will fax order, H&P and Labs to them tonight. Fax number is Paperwork has been filled out for transport [place] [facility] I am supposed to get call from byproducts extractor at [facility] [place] tomorrow for a time. Phone number for the byproducts extractor at Radiology department is Accepting Physician is Dr. Hassan Plan was discussed with Mrs Manzo and her Son Man Schneider. I again told her that she may still end up with surgery and a colostomy but as she is not septic it is worth a try to see if we can get her over the diverticulitis long enough to cool her down and then be able to do a Laparoscopic colon resection with anastamosis. She understands. Questions were entertained and answered to her satisfaction. Lovenox to start in am. Hold dose on Wednesday am. NPO after midnight on Qualifiers: Diverticulitis bleeding: without bleeding Qualified Code(s): K57.20 - Diverticulitis of large intestine with perforation and abscess without bleeding Subjective Interval history since last seen: Mrs. Manzo is doing OK. Complains mostly of intermittent crampy/gas pain. She then sometimes has to burp and that can lead to emesis of bile. No Flatus. Exam GI Inspection: normal to inspection Palpation: soft and tender in the LLQ (with guarding but no rebound) Objective Objective Clinical Data: Abnormal lab results 02/22/19 02/22/19 Range/Units 07:43 07:43 RBC 3.82 L (4.00-5.20) m/cumm MCV 100.5 H (80-95) fL MCH 33.5 H (27.0-33.0) pg Absolute Neutrophils 7.68 H (1.2-6.7) k/cumm Absolute Lymphocytes 0.66 L (1.2-3.4) k/cumm Anion Gap 14.7 H (3-11) mmol/L Glucose 107 H (70-100) mg/dL Magnesium 1.6 L (1.8-2.4) mg/dL Alkaline Phosphatase 135 H (46-116) U/L Albumin 3.2 L (3.4-5.0) g/dL Lipase 67 L (73-393) U/L Vital Signs Temperature 99.3 F 02/22/19 11:47 Temperature Source Temporal Artery Scan 02/22/19 07:28 Pulse 92 H 02/22/19 15:19 Pulse Rhythm Regular 02/22/19 16:08 Respiratory Rate 18 02/22/19 11:47 Respiratory Effort 02/22/19 16:08 Respiratory Depth Normal 02/22/19 16:08 Respiratory Pattern Normal 02/22/19 16:08 Blood Pressure 156/73 H 02/22/19 13:54 Blood Pressure Position Sitting 02/22/19 07:28 Pulse Oximetry 98 02/22/19 11:47 Oxygen Delivery Method Room Air 02/22/19 11:47 Oxygen Flow Rate 0 02/22/19 11:47 Pain Level 4 02/22/19 15:51 Intake & Output 02/21/19 02/22/19 02/22/19 23:59 11:59 23:59 Intake Total 1050 / 1402.083 352.083 / 1402.083 Balance 1050 / 1402.083 352.083 / 1402.083 Weight 64 lb 3.2 oz Intake: IV 1050 / 1402.083 352.083 / 1402.083 Other: Urine Color Yellow Voiding Methods Toilet Laboratory Results WBC 9.13 k/cumm (4.4-10.8) 02/22/19 07:43 RBC 3.82 m/cumm (4.00-5.20) L 02/22/19 07:43 Hgb 12.8 g/dL (12.0-15.5) 02/22/19 07:43 Hct 38.4 % (36.0-46.0) 02/22/19 07:43 MCV 100.5 fL (80-95) H 02/22/19 07:43 MCH 33.5 pg (27.0-33.0) H 02/22/19 07:43 MCHC 33.3 g/dL (32.0-36.0) 02/22/19 07:43 RDW 13.1 % (11.7-14.6) 02/22/19 07:43 Plt Count 366 x1000/uL (130-400) 02/22/19 07:43 MPV 8.2 fL (8.0-11.0) 02/22/19 07:43 Immature Gran % 0.3 02/22/19 07:43 Neutrophils % 84.2 02/22/19 07:43 Lymphocytes % 7.2 02/22/19 07:43 Monocytes % 6.9 02/22/19 07:43 Eosinophils % 1.2 02/22/19 07:43 Basophils % 0.2 02/22/19 07:43 Absolute Neutrophils 7.68 k/cumm (1.2-6.7) H 02/22/19 07:43 Absolute Lymphocytes 0.66 k/cumm (1.2-3.4) L 02/22/19 07:43 Absolute Monocytes 0.63 k/cumm (0.11-0.7) 02/22/19 07:43 Absolute Eosinophils 0.11 k/cumm (0.0-0.7) 02/22/19 07:43 Absolute Basophils 0.02 k/cumm (0.0-0.2) 02/22/19 07:43 PT 9.9 sec (9.3-11.0) 02/22/19 07:43 INR 1.0 (0.9-1.1) 02/22/19 07:43 APTT 30.3 sec (21.0-31.4) 02/22/19 07:43 Sodium 138 mmol/L (136-145) 02/22/19 07:43 Potassium 3.9 mmol/L (3.5-5.1) 02/22/19 07:43 Chloride 101 mmol/L (98-107) 02/22/19 07:43 Carbon Dioxide 22.3 mmol/L (21.0-32.0) 02/22/19 07:43 Anion Gap 14.7 mmol/L (3-11) H 02/22/19 07:43 BUN 12 mg/dL (7-18) 02/22/19 07:43 Creatinine 0.82 mg/dL (0.55-1.02) 02/22/19 07:43 Estimated GFR/1.73 m2 >= 60.00 (mL/min/1.73m2) 02/22/19 07:43 Glucose 107 mg/dL (70-100) H 02/22/19 07:43 Calcium 9.8 mg/dL (8.5-10.1) 02/22/19 07:43 Magnesium 1.6 mg/dL (1.8-2.4) L 02/22/19 07:43 Total Bilirubin 0.4 mg/dL (0.2-1.0) 02/22/19 07:43 AST 18 U/L (15-37) 02/22/19 07:43 ALT 35 U/L (12-78) 02/22/19 07:43 Alkaline Phosphatase 135 U/L (46-116) H 02/22/19 07:43 Total Protein 6.5 g/dL (6.4-8.2) 02/22/19 07:43 Albumin 3.2 g/dL (3.4-5.0) L 02/22/19 07:43 Lipase 67 U/L (73-393) L 02/22/19 07:43
--- NOTE | 2019-02-22 16:52 | PGE_ITS ---
Date of Service Date of service: 02/22/19 Time of Service: 16:46 Assessment and Plan (1) Diverticulitis of large intestine with abscess: Current visit: Yes Status: Acute A\\ Diverticulitis with abscess and sigmoid colon obstruction P\\ Discussed case with IR at [facility] [place]. They will plan on CT guided drainage procedure on Wednesday. I will fax order, H&P and Labs to them tonight. Fax number is Paperwork has been filled out for transport to [facility] [place] I am supposed to get call from b2b account executive at [facility] radiology tomorrow for a time. Phone number for the b2b account executive at Radiology department is Accepting Physician is Dr. Hassan Plan was discussed with Mrs Manzo and her Son Man Schneider. I again told her that she may still end up with surgery and a colostomy but as she is not septic it is worth a try to see if we can get her over the diverticulitis long enough to cool her down and then be able to do a Laparoscopic colon resection with anastamosis. She understands. Questions were entertained and answered to her satisfaction. Lovenox to start in am. Hold dose on Wednesday am. NPO after midnight on Qualifiers: Diverticulitis bleeding: without bleeding Qualified Code(s): K57.20 - Diverticulitis of large intestine with perforation and abscess without bleeding Subjective Interval history since last seen: Mrs. Manzo is doing OK. Complains mostly of intermittent crampy/gas pain. She then sometimes has to burp and that can lead to emesis of bile. No Flatus. Exam GI Inspection: normal to inspection Palpation: soft and tender in the LLQ (with guarding but no rebound) Objective Objective Clinical Data: Abnormal lab results 02/22/19 02/22/19 Range/Units 07:43 07:43 RBC 3.82 L (4.00-5.20) m/cumm MCV 100.5 H (80-95) fL MCH 33.5 H (27.0-33.0) pg Absolute Neutrophils 7.68 H (1.2-6.7) k/cumm Absolute Lymphocytes 0.66 L (1.2-3.4) k/cumm Anion Gap 14.7 H (3-11) mmol/L Glucose 107 H (70-100) mg/dL Magnesium 1.6 L (1.8-2.4) mg/dL Alkaline Phosphatase 135 H (46-116) U/L Albumin 3.2 L (3.4-5.0) g/dL Lipase 67 L (73-393) U/L Vital Signs Temperature 99.3 F 02/22/19 11:47 Temperature Source Temporal Artery Scan 02/22/19 07:28 Pulse 92 H 02/22/19 15:19 Pulse Rhythm Regular 02/22/19 16:08 Respiratory Rate 18 02/22/19 11:47 Respiratory Effort 02/22/19 16:08 Respiratory Depth Normal 02/22/19 16:08 Respiratory Pattern Normal 02/22/19 16:08 Blood Pressure 156/73 H 02/22/19 13:54 Blood Pressure Position Sitting 02/22/19 07:28 Pulse Oximetry 98 02/22/19 11:47 Oxygen Delivery Method Room Air 02/22/19 11:47 Oxygen Flow Rate 0 02/22/19 11:47 Pain Level 4 02/22/19 15:51 Intake & Output 02/21/19 02/22/19 02/22/19 23:59 11:59 23:59 Intake Total 1050 / 1402.083 352.083 / 1402.083 Balance 1050 / 1402.083 352.083 / 1402.083 Weight 64 lb 3.2 oz Intake: IV 1050 / 1402.083 352.083 / 1402.083 Other: Urine Color Yellow Voiding Methods Toilet Laboratory Results WBC 9.13 k/cumm (4.4-10.8) 02/22/19 07:43 RBC 3.82 m/cumm (4.00-5.20) L 02/22/19 07:43 Hgb 12.8 g/dL (12.0-15.5) 02/22/19 07:43 Hct 38.4 % (36.0-46.0) 02/22/19 07:43 MCV 100.5 fL (80-95) H 02/22/19 07:43 MCH 33.5 pg (27.0-33.0) H 02/22/19 07:43 MCHC 33.3 g/dL (32.0-36.0) 02/22/19 07:43 RDW 13.1 % (11.7-14.6) 02/22/19 07:43 Plt Count 366 x1000/uL (130-400) 02/22/19 07:43 MPV 8.2 fL (8.0-11.0) 02/22/19 07:43 Immature Gran % 0.3 02/22/19 07:43 Neutrophils % 84.2 02/22/19 07:43 Lymphocytes % 7.2 02/22/19 07:43 Monocytes % 6.9 02/22/19 07:43 Eosinophils % 1.2 02/22/19 07:43 Basophils % 0.2 02/22/19 07:43 Absolute Neutrophils 7.68 k/cumm (1.2-6.7) H 02/22/19 07:43 Absolute Lymphocytes 0.66 k/cumm (1.2-3.4) L 02/22/19 07:43 Absolute Monocytes 0.63 k/cumm (0.11-0.7) 02/22/19 07:43 Absolute Eosinophils 0.11 k/cumm (0.0-0.7) 02/22/19 07:43 Absolute Basophils 0.02 k/cumm (0.0-0.2) 02/22/19 07:43 PT 9.9 sec (9.3-11.0) 02/22/19 07:43 INR 1.0 (0.9-1.1) 02/22/19 07:43 APTT 30.3 sec (21.0-31.4) 02/22/19 07:43 Sodium 138 mmol/L (136-145) 02/22/19 07:43 Potassium 3.9 mmol/L (3.5-5.1) 02/22/19 07:43 Chloride 101 mmol/L (98-107) 02/22/19 07:43 Carbon Dioxide 22.3 mmol/L (21.0-32.0) 02/22/19 07:43 Anion Gap 14.7 mmol/L (3-11) H 02/22/19 07:43 BUN 12 mg/dL (7-18) 02/22/19 07:43 Creatinine 0.82 mg/dL (0.55-1.02) 02/22/19 07:43 Estimated GFR/1.73 m2 >= 60.00 (mL/min/1.73m2) 02/22/19 07:43 Glucose 107 mg/dL (70-100) H 02/22/19 07:43 Calcium 9.8 mg/dL (8.5-10.1) 02/22/19 07:43 Magnesium 1.6 mg/dL (1.8-2.4) L 02/22/19 07:43 Total Bilirubin 0.4 mg/dL (0.2-1.0) 02/22/19 07:43 AST 18 U/L (15-37) 02/22/19 07:43 ALT 35 U/L (12-78) 02/22/19 07:43 Alkaline Phosphatase 135 U/L (46-116) H 02/22/19 07:43 Total Protein 6.5 g/dL (6.4-8.2) 02/22/19 07:43 Albumin 3.2 g/dL (3.4-5.0) L 02/22/19 07:43 Lipase 67 U/L (73-393) L 02/22/19 07:43
[2019-02-22] MEDS: Simethicone 80 MG CHEW PO (17:57)
[2019-02-23] VITALS (21 sets, daily range): BP systolic 124–149; BP diastolic 68–77; PULSE 77–95; RESP 16–18; TEMP 36.6–37.7; O2SAT 96–99
[2019-02-23] MEDS: Metoprolol 5 MG/5 ML VIAL 2.5 MG IVP ×2 (02:24→09:26)
[2019-02-23] MEDS: PIPERACILLIN/TAZO 3.375 GM in Normal Saline 50 ML IVPB ×3 (04:05→21:44)
[2019-02-23] MEDS: Simethicone 80 MG CHEW PO (04:12)
[2019-02-23 07:09] LABS: Abs Immature Grans 0.05 k/cumm (0.0-0.09); Absolute Basophil Count 0.02 k/cumm (0.0-0.2); Absolute Eosinophil Count 0.11 k/cumm (0.0-0.7); Absolute Lymphocyte Count 0.88 k/cumm (1.2-3.4); Absolute Monocyte Count 0.86 k/cumm (0.11-0.7); Absolute Neutrophil Count 6.86 k/cumm (1.2-6.7); Basophils % 0.2; Eosinophils % 1.3; HCT 35.5 % (36.0-46.0); HGB 11.7 g/dL (12.0-15.5); Immature Grans % 0.6; Mean Corpuscular Hemoglobin 33.6 pg (27.0-33.0); Mean Platelet Volume 8.5 fL (8.0-11.0); Monocytes % 9.8; Neutrophils % 78.1; Platelet Count 315 x1000/uL (130-400); RBC 3.48 m/cumm (4.00-5.20); RBC Distribution Width 13.1 % (11.7-14.6); White Blood Cell Count 8.78 k/cumm (4.4-10.8)
[2019-02-23 07:19] LABS: Anion Gap 9.8 mmol/L (3-11); BUN 10 mg/dL (7-18); CO2 22.2 mmol/L (21.0-32.0); CREATININE 0.77 mg/dL (0.55-1.02); Calcium 9.3 mg/dL (8.5-10.1); Chloride 105 mmol/L (98-107); Glucose 103 mg/dL (70-100); Magnesium 1.8 mg/dL (1.8-2.4); Sodium 137 mmol/L (136-145)
--- NOTE | 2019-02-23 08:59 | W.PM.PROGNOT ---
Date of Service Date of service: 02/23/19 Time of Service: 09:00 Assessment and Plan (1) Diverticulitis of large intestine with abscess: Current visit: Yes Status: Acute Diverticulitis of large intestine with abscess started on Zosyn last night. [facility] [place] IR will be accepting Ms. Manzo today (02/23) at [address] guided abscess drainage. The accepting physician is Dr. Hassan. Prior to transfer she will be treated with IV Morphine for pain control. We will clamp and hold her IV fluids and her IV metoprolol. She has been NPO overnight and will continue this today. Reviewed and discussed the plan above with Ms. Manzo and she verbalized agreement and understanding. She is in stable condition, with intermittent increase in her abdominal pain secondary to passing gas (belching). This discomfort causes her to have nausea which subsides after a few minutes. Following her procedure at [facility] [place], she will then return to [facility] med/surg. Diet: NPO Resp. On room air, encouraged deep breathing and ambulation as tolerated. IV fluids: LR @ 125cc/hr Activity: up as tolerated DVT prophylaxis: Lovenox 40 mg IV daily GI prophylaxis: Pepcid IV 20 mg BID Antibiotics: Zosyn 3.375 mg IV q6 hours : Urinating without difficulty. Last BM was Wednesday (02/20) AM labs are stable. Qualifiers: Diverticulitis bleeding: without bleeding Qualified Code(s): K57.20 - Diverticulitis of large intestine with perforation and abscess without bleeding Subjective Interval history since last seen: The worst part is the gas pain. I am not nausea's however once I start passing gas by burping I start to get nausea's. She reports urinating without difficulty. She has been ambulating in her room independently. Denies fevers or chills. No BM. Exam Const General: cooperative, comfortable and acute distress mild (When passing gas. Intermittent during our converstation. ) Orientation: alert and oriented x3 Resp Effort & Inspection: normal respiratory effort, no audible wheezes and no cough Auscultation: clear to auscultation bilaterally Cardio Rate: regular rate Rhythm: regular rhythm Heart Sounds: S1 normal, S2 normal and no murmurs GI Inspection: distended Palpation: firm, no guarding and tender in the RLQ and in the LUQ; with no rebound tenderness Auscultation: high-pitched sounds Objective Objective Clinical Data: Abnormal lab results 02/23/19 02/23/19 Range/Units 06:50 06:50 RBC 3.48 L (4.00-5.20) m/cumm Hgb 11.7 L (12.0-15.5) g/dL Hct 35.5 L (36.0-46.0) % MCV 102.0 H (80-95) fL MCH 33.6 H (27.0-33.0) pg Absolute Neutrophils 6.86 H (1.2-6.7) k/cumm Absolute Lymphocytes 0.88 L (1.2-3.4) k/cumm Absolute Monocytes 0.86 H (0.11-0.7) k/cumm Glucose 103 H (70-100) mg/dL Vital Signs Temperature 36.6 C 02/23/19 08:20 Temperature Source Tympanic 02/23/19 08:20 Pulse 79 02/23/19 08:20 Pulse Rhythm Regular 02/23/19 07:27 Respiratory Rate 16 02/23/19 08:20 Respiratory Effort 02/23/19 07:27 Respiratory Depth Normal 02/23/19 07:27 Respiratory Pattern Normal 02/22/19 19:30 Blood Pressure 132/69 02/23/19 08:20 Blood Pressure Position Sitting 02/22/19 07:28 Pulse Oximetry 97 02/23/19 08:20 Oxygen Delivery Method Room Air 02/23/19 08:20 Oxygen Flow Rate 0 02/23/19 08:20 Pain Level 2 02/22/19 16:51 Intake & Output 02/22/19 02/23/19 02/23/19 18:59 06:59 18:59 Intake Total 1402.083 / 3045.833 1643.750 / 3045.833 Output Total 200 / 200 Balance 1402.083 / 2845.833 1443.750 / 2845.833 Weight 29.121 kg 65.2 kg Intake: IV 1402.083 / 3045.833 1643.750 / 3045.833 Output: Urine 200 / 200 Other: Urine Color Yellow Yellow Urine Appearance Clear Urine Odor None Voiding Methods Toilet Toilet Laboratory Results WBC 8.78 k/cumm (4.4-10.8) 02/23/19 06:50 RBC 3.48 m/cumm (4.00-5.20) L 02/23/19 06:50 Hgb 11.7 g/dL (12.0-15.5) L 02/23/19 06:50 Hct 35.5 % (36.0-46.0) L 02/23/19 06:50 MCV 102.0 fL (80-95) H 02/23/19 06:50 MCH 33.6 pg (27.0-33.0) H 02/23/19 06:50 MCHC 33.0 g/dL (32.0-36.0) 02/23/19 06:50 RDW 13.1 % (11.7-14.6) 02/23/19 06:50 Plt Count 315 x1000/uL (130-400) 02/23/19 06:50 MPV 8.5 fL (8.0-11.0) 02/23/19 06:50 Immature Gran % 0.6 02/23/19 06:50 Neutrophils % 78.1 02/23/19 06:50 Lymphocytes % 10.0 02/23/19 06:50 Monocytes % 9.8 02/23/19 06:50 Eosinophils % 1.3 02/23/19 06:50 Basophils % 0.2 02/23/19 06:50 Absolute Neutrophils 6.86 k/cumm (1.2-6.7) H 02/23/19 06:50 Absolute Lymphocytes 0.88 k/cumm (1.2-3.4) L 02/23/19 06:50 Absolute Monocytes 0.86 k/cumm (0.11-0.7) H 02/23/19 06:50 Absolute Eosinophils 0.11 k/cumm (0.0-0.7) 02/23/19 06:50 Absolute Basophils 0.02 k/cumm (0.0-0.2) 02/23/19 06:50 PT 9.9 sec (9.3-11.0) 02/22/19 07:43 INR 1.0 (0.9-1.1) 02/22/19 07:43 APTT 30.3 sec (21.0-31.4) 02/22/19 07:43 Sodium 137 mmol/L (136-145) 02/23/19 06:50 Potassium 4.0 mmol/L (3.5-5.1) 02/23/19 06:50 Chloride 105 mmol/L (98-107) 02/23/19 06:50 Carbon Dioxide 22.2 mmol/L (21.0-32.0) 02/23/19 06:50 Anion Gap 9.8 mmol/L (3-11) 02/23/19 06:50 BUN 10 mg/dL (7-18) 02/23/19 06:50 Creatinine 0.77 mg/dL (0.55-1.02) 02/23/19 06:50 Estimated GFR/1.73 m2 >= 60.00 (mL/min/1.73m2) 02/23/19 06:50 Glucose 103 mg/dL (70-100) H 02/23/19 06:50 Calcium 9.3 mg/dL (8.5-10.1) 02/23/19 06:50 Magnesium 1.8 mg/dL (1.8-2.4) 02/23/19 06:50 Total Bilirubin 0.4 mg/dL (0.2-1.0) 02/22/19 07:43 AST 18 U/L (15-37) 02/22/19 07:43 ALT 35 U/L (12-78) 02/22/19 07:43 Alkaline Phosphatase 135 U/L (46-116) H 02/22/19 07:43 Total Protein 6.5 g/dL (6.4-8.2) 02/22/19 07:43 Albumin 3.2 g/dL (3.4-5.0) L 02/22/19 07:43 Lipase 67 U/L (73-393) L 02/22/19 07:43
[2019-02-23] MEDS: Lactated Ringers 1,000 ML 125 ML IV ×3 (09:00→23:55)
[2019-02-23] MEDS: Normal Saline Flush 10 ML SYR IVP ×4 (09:26→19:16)
[2019-02-23] MEDS: Levothyroxine 100 MCG VIAL 75 MCG IVP (09:26)
[2019-02-23] MEDS: FAMOTIDINE 20 MG/50 ML BAG 200 MG IVPB ×2 (12:05→23:50)
--- NOTE | 2019-02-23 12:19 | NUR.NOTE ---
Nursing Note: 1205: called [facility] and spoke with charge nurse, Brandy. reported that pt is a daily drinker and that last drink was on Wednesday and s/s of withdrawal may become present with in IR for procedure today. Brandy appreciated call and will assess as needed.
--- NOTE | 2019-02-23 17:31 | PDOC.CMIN ---
- If Service Date Differs Date of service: 02/23/19 Time of Service: 17:31 Care Management Initial Assess REASON FOR HOSPITALIZATION:: Diverticulitis with abscess PAST MEDICAL HISTORY/PAST SURGICAL HISTORY:: Diverticulitis, psoriasis, hypothyroidisim, essential htn, ductal carcinoma of the breast (2011), breast lumpectomy and radiation, left mastectomy, arthritis, impetigo. PREVIOUS FUNCTIONAL STATUS/SOCIAL/FAMILY SUPPORTS:: Idalia lives in her own home in [place], [place]. She has a son Nagi and his that live local and are supportive. Idalia is retired, she spent the last 20 years of her career working for a [employer] out of [email or web address]. She is independent with ADL's and transportation. CURRENT FUNCTIONAL STATUS:: Idalia is sitting up in the chair she complains of abdominal discomfort and feeling of being bloated. She is engaged during assessment with CM. She states that she recently lost her Mom and her Brother and was not taking care of herself. She states she has been having difficulty over the past four months and tried several bouts of antibitoics prior to being admitted. She sees in [place] and she states she has known at some point she may need surgery to treat the abscess. ADVANCE DIRECTIVES:: None on file she states she has the paperwork and will complete it at some point. Has patient been provided with information about the portal?: Yes Did the patient sign up for the portal?: No (declines ) CODE STATUS:: Full Code INSURANCE COVERAGE / FINANCIAL ISSUES:: Medicare and BCBS CURRENT HOME/COMMUNITY SERVICES/EQUIPMENT:: No current services she does have close follow up with in [place] PRIMARY CARE PHYSICIAN:: Deepthi Whitehead NP POTENTIAL DISCHARGE NEEDS:: Follow up with primary care, babs and as directed. PATIENT/FAMILY EDUCATION NEEDS:: Discharge education, limitations and follow up plan of care. ANTICIPATED BARRIERS TO DISCHARGE:: None TRANSPORTATION:: Via private car with family at time of discharge. PLAN:: Idalia remains on IV antibioitcs and hydration. Plan is for her [place] [facility] [place] and drain the abscess. She understands the plan. Anticipate no addtional services at time of discharge. CM will continue to provide support discharge planning.
--- NOTE | 2019-02-23 17:55 | INITIAL_ITS ---
- If Service Date Differs Date of service: 02/23/19 Time of Service: 17:31 Care Management Initial Assess REASON FOR HOSPITALIZATION:: Diverticulitis with abscess PAST MEDICAL HISTORY/PAST SURGICAL HISTORY:: Diverticulitis, psoriasis, hypothyroidisim, essential htn, ductal carcinoma of the breast (2011), breast lumpectomy and radiation, left mastectomy, arthritis, impetigo. PREVIOUS FUNCTIONAL STATUS/SOCIAL/FAMILY SUPPORTS:: Idalia lives in her own home in [place], [place]. She has a son Nagi and his that live local and are supportive. Idalia is retired, she spent the last 20 years of her career working for a [email or web address] out of [employer]. She is independent with ADL's and transportation. CURRENT FUNCTIONAL STATUS:: Idalia is sitting up in the chair she complains of abdominal discomfort and feeling of being bloated. She is engaged during assessment with CM. She states that she recently lost her Mom and her Brother and was not taking care of herself. She states she has been having difficulty over the past four months and tried several bouts of antibitoics prior to being admitted. She sees in [place] and she states she has known at some point she may need surgery to treat the abscess. ADVANCE DIRECTIVES:: None on file she states she has the paperwork and will complete it at some point. Has patient been provided with information about the portal?: Yes Did the patient sign up for the portal?: No (declines ) CODE STATUS:: Full Code INSURANCE COVERAGE / FINANCIAL ISSUES:: Medicare and BCBS CURRENT HOME/COMMUNITY SERVICES/EQUIPMENT:: No current services she does have close follow up with in [place] PRIMARY CARE PHYSICIAN:: Deepthi Whitehead NP POTENTIAL DISCHARGE NEEDS:: Follow up with primary care, babs and as directed. PATIENT/FAMILY EDUCATION NEEDS:: Discharge education, limitations and follow up plan of care. ANTICIPATED BARRIERS TO DISCHARGE:: None TRANSPORTATION:: Via private car with family at time of discharge. PLAN:: Idalia remains on IV antibioitcs and hydration. Plan is for her to go to [facility] [place] for Intervent[place]ional radiology and drain the abscess. She understands the plan. Anticipate no addtional services at time of discharge. CM will continue to provide support discharge planning.
[2019-02-23] MEDS: Ketorolac 15 MG/ML VIAL IVP (19:16)
[2019-02-23] MEDS: ACETAMINOPHEN 1,000 MG/100 ML BTL 400 MG IVPB (22:10)
[2019-02-24] VITALS (12 sets, daily range): BP systolic 128–168; BP diastolic 70–83; PULSE 70–92; RESP 16–22; TEMP 36.2–37.3; O2SAT 96–99
--- NOTE | 2019-02-24 00:58 | NUR.NOTE ---
Nursing Note: Pt received from [facility] s/p drained abscess , incision on left abdomen is clean,dry and intact with LUIS drain with minimal bloody output. Temp increased to 37.9, medicated with offirmev, also Toradol IVP given for pain rated 8. and with good relief. Pt was out of bed and voided. Refused to receive Metoprolol inj as scheduled , she claimed that she had bad reactions on it when given by day shift.At 2200 hrs, drain was flushed with 5cc NS and aspirated it, scant blood streaks noted on the output. Continue to closely monitor.Call lights within reach.
[2019-02-24] MEDS: Ketorolac 15 MG/ML VIAL IVP ×2 (03:49→18:07)
[2019-02-24] MEDS: PIPERACILLIN/TAZO 3.375 GM in Normal Saline 50 ML IVPB ×4 (03:50→21:44)
[2019-02-24] MEDS: Normal Saline Flush 10 ML SYR IVP ×7 (03:50→21:45)
[2019-02-24 07:10] LABS: Abs Immature Grans 0.02 k/cumm (0.0-0.09); Absolute Basophil Count 0.02 k/cumm (0.0-0.2); Absolute Eosinophil Count 0.13 k/cumm (0.0-0.7); Absolute Lymphocyte Count 0.88 k/cumm (1.2-3.4); Absolute Monocyte Count 0.88 k/cumm (0.11-0.7); Absolute Neutrophil Count 3.71 k/cumm (1.2-6.7); Basophils % 0.4; Eosinophils % 2.3; HCT 36.5 % (36.0-46.0); HGB 11.8 g/dL (12.0-15.5); Immature Grans % 0.4; Lymphocytes % 15.6; Mean Corp. HGB Concentration 32.3 g/dL (32.0-36.0); Mean Corpuscular Hemoglobin 33.3 pg (27.0-33.0); Mean Corpuscular Volume 103.1 fL (80-95); Mean Platelet Volume 8.6 fL (8.0-11.0); Monocytes % 15.6; Neutrophils % 65.7; Platelet Count 311 x1000/uL (130-400); RBC 3.54 m/cumm (4.00-5.20); White Blood Cell Count 5.64 k/cumm (4.4-10.8)
--- NOTE | 2019-02-24 08:12 | PGE_ITS ---
Documented by User: ROSA Gerard 02/24/19 08:20 Date of Service Date of service: 02/24/19 Time of Service: 08:11 Assessment and Plan (1) Diverticulitis of large intestine with abscess: Current visit: Yes Status: Acute Diverticulitis of large intestine with abscess started on Zosyn 2 days ago. Yesterday she went to [facility] for CT guided abscess drainage and drain was left in place. She has had serous/bloody drainage from this drain. She denies feeling hungry. Diet: NPO Resp. On room air, encouraged deep breathing and ambulation as tolerated. IV fluids: LR @ 125cc/hr Activity: up as tolerated DVT prophylaxis: Lovenox 40 mg IV daily GI prophylaxis: Pepcid IV 20 mg BID Antibiotics: Zosyn 3.375 mg IV q6 hours : Urinating without difficulty. BM: x 2 small, liquid stool Qualifiers: Diverticulitis bleeding: without bleeding Qualified Code(s): K57.20 - Diverticulitis of large intestine with perforation and abscess without bleeding Subjective Patient reports: afebrile; denies vomiting Interval history since last seen: Feeling better, I am really happy with how everything went yesterday. She had 2 small BMs overnight/this morning. She complains of continued abdominal swelling/distention and associated gas pain. She denies fevers and chills. Exam Const General: cooperative and comfortable Orientation: alert and oriented x3 Resp Effort & Inspection: normal respiratory effort, no audible wheezes and no cough GI Palpation: soft, no guarding and tender in the LLQ and in the RLQ Auscultation: hypoactive bowel sounds Other: Drain in place. Objective Objective Clinical Data: Abnormal lab results 02/24/19 Range/Units 06:45 RBC 3.54 L (4.00-5.20) m/cumm Hgb 11.8 L (12.0-15.5) g/dL MCV 103.1 H (80-95) fL MCH 33.3 H (27.0-33.0) pg Absolute Lymphocytes 0.88 L (1.2-3.4) k/cumm Absolute Monocytes 0.88 H (0.11-0.7) k/cumm Vital Signs Temperature 37.0 C 02/24/19 04:00 Temperature Source Tympanic 02/24/19 04:00 Pulse 85 02/24/19 07:26 Pulse Rhythm Regular 02/24/19 04:00 Respiratory Rate 18 02/24/19 04:00 Respiratory Effort 02/24/19 04:00 Respiratory Depth Normal 02/24/19 04:00 Respiratory Pattern Normal 02/24/19 04:00 Blood Pressure 128/70 02/24/19 04:00 Blood Pressure Position Sitting 02/22/19 07:28 Pulse Oximetry 98 02/24/19 04:00 Oxygen Delivery Method Room Air 02/24/19 04:00 Oxygen Flow Rate 0 02/24/19 04:00 Pain Level 8 02/24/19 04:00 Intake & Output 02/23/19 02/24/19 02/24/19 18:59 06:59 18:59 Intake Total 795.833 / 3204.167 2408.334 / 3204.167 Output Total Balance 795.833 / 3194.167 2398.334 / 3194.167 Weight 65.2 kg Intake: IV 795.833 / 3199.167 2403.334 / 3199.167 Injectate Left Lateral Abdomen Output: Drainage Left Lateral Abdomen Other: Urine Appearance Clear Comment pt voiding ad junaid in toilet; pt was noted to void x 2 prior to leaving to [facility] patient went in toilet no hat Stool Size Small Stool Characteristics Soft Formed Voiding Methods Toilet Toilet Laboratory Results WBC 5.64 k/cumm (4.4-10.8) D 02/24/19 06:45 RBC 3.54 m/cumm (4.00-5.20) L 02/24/19 06:45 Hgb 11.8 g/dL (12.0-15.5) L 02/24/19 06:45 Hct 36.5 % (36.0-46.0) 02/24/19 06:45 MCV 103.1 fL (80-95) H 02/24/19 06:45 MCH 33.3 pg (27.0-33.0) H 02/24/19 06:45 MCHC 32.3 g/dL (32.0-36.0) 02/24/19 06:45 RDW 13.0 % (11.7-14.6) 02/24/19 06:45 Plt Count 311 x1000/uL (130-400) 02/24/19 06:45 MPV 8.6 fL (8.0-11.0) 02/24/19 06:45 Immature Gran % 0.4 02/24/19 06:45 Neutrophils % 65.7 02/24/19 06:45 Lymphocytes % 15.6 02/24/19 06:45 Monocytes % 15.6 02/24/19 06:45 Eosinophils % 2.3 02/24/19 06:45 Basophils % 0.4 02/24/19 06:45 Absolute Neutrophils 3.71 k/cumm (1.2-6.7) 02/24/19 06:45 Absolute Lymphocytes 0.88 k/cumm (1.2-3.4) L 02/24/19 06:45 Absolute Monocytes 0.88 k/cumm (0.11-0.7) H 02/24/19 06:45 Absolute Eosinophils 0.13 k/cumm (0.0-0.7) 02/24/19 06:45 Absolute Basophils 0.02 k/cumm (0.0-0.2) 02/24/19 06:45 PT 9.9 sec (9.3-11.0) 02/22/19 07:43 INR 1.0 (0.9-1.1) 02/22/19 07:43 APTT 30.3 sec (21.0-31.4) 02/22/19 07:43 Sodium 137 mmol/L (136-145) 02/23/19 06:50 Potassium 4.0 mmol/L (3.5-5.1) 02/23/19 06:50 Chloride 105 mmol/L (98-107) 02/23/19 06:50 Carbon Dioxide 22.2 mmol/L (21.0-32.0) 02/23/19 06:50 Anion Gap 9.8 mmol/L (3-11) 02/23/19 06:50 BUN 10 mg/dL (7-18) 02/23/19 06:50 Creatinine 0.77 mg/dL (0.55-1.02) 02/23/19 06:50 Estimated GFR/1.73 m2 >= 60.00 (mL/min/1.73m2) 02/23/19 06:50 Glucose 103 mg/dL (70-100) H 02/23/19 06:50 Calcium 9.3 mg/dL (8.5-10.1) 02/23/19 06:50 Magnesium 1.8 mg/dL (1.8-2.4) 02/23/19 06:50 Total Bilirubin 0.4 mg/dL (0.2-1.0) 02/22/19 07:43 AST 18 U/L (15-37) 02/22/19 07:43 ALT 35 U/L (12-78) 02/22/19 07:43 Alkaline Phosphatase 135 U/L (46-116) H 02/22/19 07:43 Total Protein 6.5 g/dL (6.4-8.2) 02/22/19 07:43 Albumin 3.2 g/dL (3.4-5.0) L 02/22/19 07:43 Lipase 67 U/L (73-393) L 02/22/19 07:43 Documented by User: Maris Motley DO 02/24/19 16:44 Assessment and Plan (1) Diverticulitis of large intestine with abscess: Current visit: Yes Status: Acute pt had lg BM today and feels better. Formed and no blood. no diarrhea. Less bloating and cramping. drain placement yest only yeided 7cc. Fluid today is serious. no appetite no fever/chlls no thrush no calf pain or swelling no dysuria cont abx cults- pd try water/ice Qualifiers: Diverticulitis bleeding: without bleeding Qualified Code(s): K57.20 - Diverticulitis of large intestine with perforation and abscess without bleeding
[2019-02-24] MEDS: Levothyroxine 100 MCG VIAL 75 MCG IVP (10:05)
[2019-02-24] MEDS: Lactated Ringers 1,000 ML 125 ML IV ×2 (10:44→20:40)
[2019-02-24] MEDS: FAMOTIDINE 20 MG/50 ML BAG 200 MG IVPB ×2 (12:00→23:33)
[2019-02-24] MEDS: Enoxaparin 40 MG/0.4 ML SYR SC (12:00)
--- NOTE | 2019-02-24 16:50 | PHARADMIT ---
Addendum entered by Nikita Lehman III 03/03/19 12:00: Pharmacy Note Subjective Eliz Sawyer CAD LIBRARIAN, Notes that patient has tolerated some clears and if she tolerates more , the TPN will begin to be weaned tomorrow, possibly. Objective VS-OK K+3.0 Na-141 Mag-1.6 Assessment PO Potassium given, Levophed dc'D, Off pressors.Epidural stopped. Plan Awaiting BOWEL FUNCTION. RETURN Addendum entered by Ifeoma Gerard 02/27/19 14:06: Pharmacy Note Subjective pt with diverticulitis of large intestines, [facility] placed drain 02/23, drain to be removed today, not much of an appetite Objective BM's recorded Assessment ketorolac stopped, Plan Original Note: Admission Pharmacy Clinical Review diverticulitis w/ abscess Code Status Full Code Current Weight 65.2 kg Renally Cleared and Narrow Therapeutic Index Meds Crcl ~53.23 mL/min current meds okay QTc Value / Action Taken n/a BP Control, Fever BP 150/80 afebrile Electrolytes reviewed within normal limits DVT Prophylaxis enoxaparin Opiate Usage / Scheduled Bowel Regimen Ordered prn/no Plt/SCr for Heparin / Enoxaparin plt 311 SCr 0.77 INR for Warfarin n/a H/H stable, WBC/Bands h/h 11.8/36.5 wbc 5.64 Antibiotic appropriateness zosyn (day 3) Cultures and Sensitivities none Surgical ABX d/c within 24 hr n/a DM control / Insulin Dosing BG 103 Heart Failure (Check EF%) (THOMPSON's, B-Block, Diuretics) metoprolol IV to PO Switch watch for change to PO meds (levothyroxine) Home Meds Reviewed -separate admin of allopurinol and levothyroxine from calcium carbonate/vitD -lisinopril may enhance the potential for allergic or hypersensitivity reactions to allopurinol Home Meds Not Ordered allopurinol, calcium/vitD. cholecalciferol, diazepam, lisinopril, miralax Comments
--- NOTE | 2019-02-24 17:12 | PDOC.CMPRO ---
- If Service Date Differs Date of service: 02/24/19 Time of Service: 17:12 Care Management Progress Note S/O: LOIS met with Idalia in the room she is alert and engaged she is visiting with her daughter in law at time of visit. She states she does not feel hungry or thirsty yet. She did have a [place] [facility] she feels the bloating and pain are much better. She reports she is having bowel movements. She is unsure if she will still need surgery to treat the abscess. CM provided disease specific education related to abscess and LUIS drain. Idalia states she does not feel ready for discharge. Her goals are to ambulate, tolerate fluids and some oral intake. She is not on her oral blood pressure medications she reports a reaction to the Lopressor IV and has been refusing it since. She reports an all over redness during the IV Lopressor that scared her. She is hopeful she will return to her oral medications once she is able to tolerate orals. A: Idalia is a 68 year old female admitted with intestinal abscess which she has been treated as an outpatient for the past four months with oral antibiotics and close follow up. P:Idalia remains on IV antibiotics and hydration. She is NPO she went to [facility] [place] and continues to have a LUIS drain.She understands the plan. Anticipate no additional services at time of discharge. CM will continue to provide support discharge planning.
[2019-02-24] MEDS: Normal Saline 500 ML 30 ML IVPB (17:15)
--- NOTE | 2019-02-24 17:21 | CMPROGNOTE_ITS ---
- If Service Date Differs Date of service: 02/24/19 Time of Service: 17:12 Care Management Progress Note S/O: LOIS met with Idalia in the room she is alert and engaged she is visiting with her daughter in law at time of visit. She states she does not feel hungry or thirsty yet. She did have a drain placed yesterday at [facility] she feels the bloating and pain are much better. She reports she is having bowel movements. She is unsure if she will still need surgery to treat the abscess. CM provided disease specific education related to abscess and LUIS drain. Idalia states she does not feel ready for discharge. Her goals are to ambulate, tolerate fluids and some oral intake. She is not on her oral blood pressure medications she reports a reaction to the Lopressor IV and has been refusing it since. She reports an all over redness during the IV Lopressor that scared her. She is hopeful she will return to her oral medications once she is able to tolerate orals. A: Idalia is a 68 year old female admitted with intestinal abscess which she has been treated as an outpatient for the past four months with oral antibiotics and close follow up. P:Idalia remains on IV antibiotics and hydration. She is NPO she went to [facility] yesterday and continues to have a LUIS drain.She understands the plan. Anticipate no additional services at time of discharge. CM will continue to provide support discharge planning.
[2019-02-24 22:43] LABS: CRP, High Sensitivity 9.17 mg/L
[2019-02-25] VITALS (9 sets, daily range): BP systolic 135–160; BP diastolic 71–81; PULSE 75–97; RESP 17–18; TEMP 36.6–37.3; O2SAT 96–100
[2019-02-25] MEDS: PIPERACILLIN/TAZO 3.375 GM in Normal Saline 50 ML IVPB ×4 (03:49→20:59)
[2019-02-25 07:04] LABS: Anion Gap 14.4 mmol/L (3-11); BUN 11 mg/dL (7-18); CO2 21.6 mmol/L (21.0-32.0); CREATININE 0.81 mg/dL (0.55-1.02); Chloride 106 mmol/L (98-107); Glucose 75 mg/dL (70-100); Magnesium 1.5 mg/dL (1.8-2.4); Potassium 3.8 mmol/L (3.5-5.1); Sodium 142 mmol/L (136-145)
[2019-02-25] MEDS: Levothyroxine 100 MCG VIAL 75 MCG IVP (08:20)
[2019-02-25] MEDS: Lactated Ringers 1,000 ML 125 ML IV ×2 (08:20→20:59)
[2019-02-25] MEDS: Normal Saline Flush 10 ML SYR IVP ×4 (08:25→20:59)
[2019-02-25] MEDS: Normal Saline 500 ML 30 ML IVPB (10:44)
[2019-02-25] MEDS: FAMOTIDINE 20 MG/50 ML BAG 200 MG IVPB (11:51)
[2019-02-25] MEDS: Enoxaparin 40 MG/0.4 ML SYR SC (11:51)
--- NOTE | 2019-02-25 13:50 | W.PM.PROGNOT ---
Date of Service Date of service: 02/25/19 Time of Service: 13:50 Assessment and Plan (1) Diverticulitis of large intestine with abscess: Current visit: Yes Status: Acute cont drain and IV abx. waiting results of cultures from [facility] will try some cl liquids and see how she does record changer to po meds. 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 dietary consult will check c diff due to diarrhea. prob more function of Dx, but has been on lots of abx lately encourage ambulation Qualifiers: Diverticulitis bleeding: without bleeding Qualified Code(s): K57.20 - Diverticulitis of large intestine with perforation and abscess without bleeding (2) Essential hypertension: Current visit: Yes Status: Acute Subjective Interval history since last seen: Pt is doing better. no headaches. No CP or SOB. no productive cough. no dysuria. no leg pain or swelling. She is having/had mult . BM. no blood. pain is little better. She is maybe feeling a little hungry adn would like to try a viv rocky. I did d/w her that there is still a chance she may rebound Dx after she comes off the IV abx and may require Sx in the future. We discussed having elective Sx in future as well. We discussed lifestyle/diet cahnges for in the future- low fiber diet when she goes home and than (if all goes well) transitioning to high fiber diet. She would like more info and consulted dietary for Wednesday. Cont IV abx. and supportive care. Exam Const General: cooperative, healthy appearing, comfortable, no acute distress, well developed and well groomed Nutritional Appearance: average body habitus and well nourished Orientation: alert, awake and oriented x3 Other: no fevers for last 24 hrs [facility] Head: normal to inspection, normocephalic and atraumatic Ears: hearing grossly normal bilaterally and external ears normal General nose exam: external nose normal Face and sinus: normal facial exam and sinuses nontender Mouth: oral mucosae normal, lip normal, tongue normal, moist mucous membranes and other (no thrush) Teeth and gingiva: dentition normal Eyes General: appearance normal, both eyes and all related structures Conjunctivae: conjunctivae normal Sclera: sclerae normal Pupils: PERRL Neck Neck: normal visual inspection and full ROM Chest Chest: normal inspection of the chest Resp Effort & Inspection: normal respiratory effort, able to speak in complete sentences, no cough, no nasal flaring, not tachypneic and no use of accessory muscles Auscultation: clear to auscultation bilaterally, no rales, no rhonchi and no wheezes Cardio Jugular venous pressure: no JVD Rate: regular rate Rhythm: regular rhythm GI Inspection: normal to inspection, no edema and distended Palpation: soft, no masses, nontender and No ascites Auscultation: normal bowel sounds Other: feels very bloated/distended. no diffuse peritonitis. drain site c/d/i. drain= serous drainage only and minimal. Do not have report back from [facility] on cultures Skin General skin exam: no rashes or lesions noted Trauma: no lacerations or abrasions Other: Justine site c/d/i. Neuro General: alert, oriented x3, oriented, gait normal, moves all extremities, no focal motor deficits and CN's II-XI intact bilaterally Cognition: normal cognition Speech: speech normal Gait: normal gait Motor: muscle tone normal throughout Extrem General: normal to inspection, full ROM and no clubbing, cyanosis or edema Psych Appearance: grossly normal and well kempt Mental Status: mental status grossly normal Speech and Movement: speech and movement normal Affect: normal affect Objective Objective Clinical Data: Abnormal lab results 02/25/19 Range/Units 06:40 Anion Gap 14.4 H (3-11) mmol/L Magnesium 1.5 L (1.8-2.4) mg/dL C-Reactive Protein 1.00 H (0.0-0.3) mg/dL Vital Signs Temperature 36.7 C 02/25/19 11:35 Temperature Source Tympanic 02/25/19 11:35 Pulse 81 02/25/19 11:35 Pulse Rhythm Regular 02/25/19 10:25 Respiratory Rate 18 02/25/19 11:35 Respiratory Effort 02/25/19 10:25 Respiratory Depth Normal 02/25/19 10:25 Respiratory Pattern Normal 02/25/19 10:25 Blood Pressure 135/75 02/25/19 11:35 Blood Pressure Position Sitting 02/22/19 07:28 Pulse Oximetry 96 02/25/19 11:35 Oxygen Delivery Method Room Air 02/25/19 11:35 Oxygen Flow Rate 0 02/25/19 11:35 Pain Level 4 02/25/19 11:35 Intake & Output 02/24/19 02/25/19 02/25/19 23:59 11:59 23:59 Intake Total 1539.833 / 3527.750 1148.167 / 1148.167 Output Total Balance 1526.833 / 3514.750 1148.167 / 1148.167 Weight 67.85 kg Intake: IV 1534.833 / 3522.750 1148.167 / 1148.167 Injectate Left Lateral Abdomen Output: Drainage Left Lateral Abdomen Other: Urine Color Pale Yellow Urine Appearance Clear Clear Urine Odor None Normal Stool Size Moderate Small Stool Characteristics Soft Soft Liquid Formed Brown Voiding Methods Toilet Toilet Laboratory Results WBC 5.64 k/cumm (4.4-10.8) D 02/24/19 06:45 RBC 3.54 m/cumm (4.00-5.20) L 02/24/19 06:45 Hgb 11.8 g/dL (12.0-15.5) L 02/24/19 06:45 Hct 36.5 % (36.0-46.0) 02/24/19 06:45 MCV 103.1 fL (80-95) H 02/24/19 06:45 MCH 33.3 pg (27.0-33.0) H 02/24/19 06:45 MCHC 32.3 g/dL (32.0-36.0) 02/24/19 06:45 RDW 13.0 % (11.7-14.6) 02/24/19 06:45 Plt Count 311 x1000/uL (130-400) 02/24/19 06:45 MPV 8.6 fL (8.0-11.0) 02/24/19 06:45 Immature Gran % 0.4 02/24/19 06:45 Neutrophils % 65.7 02/24/19 06:45 Lymphocytes % 15.6 02/24/19 06:45 Monocytes % 15.6 02/24/19 06:45 Eosinophils % 2.3 02/24/19 06:45 Basophils % 0.4 02/24/19 06:45 Absolute Neutrophils 3.71 k/cumm (1.2-6.7) 02/24/19 06:45 Absolute Lymphocytes 0.88 k/cumm (1.2-3.4) L 02/24/19 06:45 Absolute Monocytes 0.88 k/cumm (0.11-0.7) H 02/24/19 06:45 Absolute Eosinophils 0.13 k/cumm (0.0-0.7) 02/24/19 06:45 Absolute Basophils 0.02 k/cumm (0.0-0.2) 02/24/19 06:45 PT 9.9 sec (9.3-11.0) 02/22/19 07:43 INR 1.0 (0.9-1.1) 02/22/19 07:43 APTT 30.3 sec (21.0-31.4) 02/22/19 07:43 Sodium 142 mmol/L (136-145) 02/25/19 06:40 Potassium 3.8 mmol/L (3.5-5.1) 02/25/19 06:40 Chloride 106 mmol/L (98-107) 02/25/19 06:40 Carbon Dioxide 21.6 mmol/L (21.0-32.0) 02/25/19 06:40 Anion Gap 14.4 mmol/L (3-11) H 02/25/19 06:40 BUN 11 mg/dL (7-18) 02/25/19 06:40 Creatinine 0.81 mg/dL (0.55-1.02) 02/25/19 06:40 Estimated GFR/1.73 m2 >= 60.00 (mL/min/1.73m2) 02/25/19 06:40 Glucose 75 mg/dL (70-100) 02/25/19 06:40 Calcium 9.0 mg/dL (8.5-10.1) 02/25/19 06:40 Magnesium 1.5 mg/dL (1.8-2.4) L 02/25/19 06:40 Total Bilirubin 0.4 mg/dL (0.2-1.0) 02/22/19 07:43 AST 18 U/L (15-37) 02/22/19 07:43 ALT 35 U/L (12-78) 02/22/19 07:43 Alkaline Phosphatase 135 U/L (46-116) H 02/22/19 07:43 C-Reactive Protein 1.00 mg/dL (0.0-0.3) H 02/25/19 06:40 Total Protein 6.5 g/dL (6.4-8.2) 02/22/19 07:43 Albumin 3.2 g/dL (3.4-5.0) L 02/22/19 07:43 Lipase 67 U/L (73-393) L 02/22/19 07:43
[2019-02-25] MEDS: MAGNESIUM SULFATE 2 GM/50 ML BAG IVPB (14:28)
[2019-02-25] MEDS: Lisinopril 20 MG TAB PO (15:07)
--- NOTE | 2019-02-25 15:11 | PDOC.CMPRO ---
Care Management Progress Note S/O: Idalia was sitting in her chair, sipping gingerale when CM met with her. She processed many of her current life events, stressors, interests and aspirations. She was pleasant in interaction and forthcoming with information. She spoke to her recent losses, the mourning process, family dynamics and attending to her new home and community. She identified supports such as the [employer] and her family and reported looking forward to Wednesday night family dinners and the planned double burial at the [facility]. She shared concerns around ongoing medical needs and the possibility of managing a bag upon discharge. CM allowed Idalia to process and validated her feelings, CM reviewed contact information for further needs and assistant plant control operator availability. CM will continue to follow. A: Idalia is a 68 year old female admitted with intestinal abscess which she has been treated as an outpatient for the past four months with oral antibiotics and close follow up. P: Idalia remains on IV antibiotics and hydration. She is NPO though was trialed on some gingerale this evening to monitor tolerance. CM will continue to follow. Anticipate Ruthann will transport home via private vehicle with family.
--- NOTE | 2019-02-25 17:04 | CMPROGNOTE_ITS ---
Care Management Progress Note S/O: Idalia was sitting in her chair, sipping gingerale when CM met with her. She processed many of her current life events, stressors, interests and aspirations. She was pleasant in interaction and forthcoming with information. She spoke to her recent losses, the mourning process, family dynamics and attending to her new home and community. She identified supports such as the [facility] and her family and reported looking forward to Wednesday night family dinners and the planned double burial at the [facility]. She shared concerns around ongoing medical needs and the possibility of managing a bag upon discharge. CM allowed Idalia to process and validated her feelings, CM reviewed contact information for further needs and instructional coach availability. CM will continue to follow. A: Idalia is a 68 year old female admitted with intestinal abscess which she has been treated as an outpatient for the past four months with oral antibiotics and close follow up. P: Idalia remains on IV antibiotics and hydration. She is NPO though was trialed on some gingerale this evening to monitor tolerance. CM will continue to follow. Anticipate Ruthann will transport home via private vehicle with family.
[2019-02-26] MEDS: FAMOTIDINE 20 MG/50 ML BAG 200 MG IVPB ×3 (00:02→23:32)
[2019-02-26] MEDS: PIPERACILLIN/TAZO 3.375 GM in Normal Saline 50 ML IVPB ×4 (03:17→21:21)
[2019-02-26 03:40] VITALS: BP 152/81; PULSE 83; RESP 16; TEMP 36.7; O2SAT 98
[2019-02-26] MEDS: Levothyroxine 125 MCG TAB PO (05:55)
[2019-02-26] MEDS: Lactated Ringers 1,000 ML 125 ML IV ×3 (06:39→23:32)
[2019-02-26 07:25] VITALS: BP 134/78; PULSE 81; RESP 18; TEMP 37; O2SAT 99
[2019-02-26] MEDS: Lisinopril 20 MG TAB PO (08:22)
[2019-02-26] MEDS: Normal Saline 500 ML 30 ML IVPB (10:02)
[2019-02-26 10:59] VITALS: BP 162/80; PULSE 76; RESP 18; TEMP 37.3; O2SAT 98
[2019-02-26] MEDS: Enoxaparin 40 MG/0.4 ML SYR SC (11:49)
--- NOTE | 2019-02-26 12:04 | PGE_ITS ---
Date of Service Date of service: 02/26/19 Time of Service: 12:03 Assessment and Plan (1) Diverticulitis of large intestine with abscess: Current visit: Yes Status: Acute -s/p perc drain for abscess. Will check repeat CT to make sure resolution of abscess. hopefully d/c drain in am cult: rare gram + . Many neutrophils cont zosyn -DVT & GI proph -probiotics diet: cl liq pt up walking electrolytes adjusted dietary consult- pd Qualifiers: Diverticulitis bleeding: without bleeding Qualified Code(s): K57.20 - Diverticulitis of large intestine with perforation and abscess without bleeding (2) Diarrhea: Current visit: Yes Status: Acute prob combo of infection/abx and loss of nl sydney C diff neg Subjective Interval history since last seen: Pt is doing ok. no headaches. No CP or SOB. no productive cough. no dysuria. no leg pain or swelling. still have mult bm. no blood. c. diff neg. feels very bloated. tolerated viv rocky with no problems. will try cl liq today. serous coming out of drain. not really having any abdominal pain - just feels very bloated. Exam Const General: cooperative, healthy appearing, comfortable, no acute distress, well de veloped and well groomed Nutritional Appearance: average body habitus and well nourished Orientation: alert, awake and oriented x3 HENMT Head: normal to inspection, normocephalic and atraumatic Ears: hearing grossly normal bilaterally and external ears normal General nose exam: external nose normal Face and sinus: normal facial exam and sinuses nontender Mouth: oral mucosae normal, lip normal, tongue normal and moist mucous membranes Teeth and gingiva: dentition normal Eyes General: appearance normal, both eyes and all related structures Conjunctivae: conjunctivae normal Sclera: sclerae normal Pupils: PERRL Neck Neck: normal visual inspection and full ROM Chest Chest: normal inspection of the chest Resp Effort & Inspection: normal respiratory effort, able to speak in complete sentences, no cough, no nasal flaring, not tachypneic and no use of accessory muscles Auscultation: clear to auscultation bilaterally, no rales, no rhonchi and no wheezes Cardio Jugular venous pressure: no JVD Rate: regular rate Rhythm: regular rhythm GI Inspection: normal to inspection, no edema and distended Palpation: soft, no masses, tender (minimal) and No ascites Auscultation: normal bowel sounds Other: drain site c/d/i. serous from drain Skin General skin exam: no rashes or lesions noted Trauma: no lacerations or abrasions Neuro General: alert, oriented x3, oriented, gait normal, moves all extremities, no focal motor deficits and CN's II-XI intact bilaterally Cognition: normal cognition Speech: speech normal Gait: normal gait Motor: muscle tone normal throughout Extrem General: normal to inspection, full ROM and no clubbing, cyanosis or edema Psych Appearance: grossly normal and well kempt Mental Status: mental status grossly normal Speech and Movement: speech and movement normal Affect: normal affect Objective Objective Clinical Data: Vital Signs Temperature 37.3 C 02/26/19 10:59 Temperature Source Tympanic 02/26/19 10:59 Pulse 76 02/26/19 10:59 Pulse Rhythm Regular 02/26/19 09:43 Respiratory Rate 18 02/26/19 10:59 Respiratory Effort 02/26/19 09:43 Respiratory Depth Normal 02/26/19 09:43 Respiratory Pattern Normal 02/26/19 09:43 Blood Pressure 162/80 H 02/26/19 10:59 Blood Pressure Position Sitting 02/22/19 07:28 Pulse Oximetry 98 02/26/19 10:59 Oxygen Delivery Method Room Air 02/26/19 10:59 Oxygen Flow Rate 0 02/26/19 10:59 Pain Level 0 02/26/19 03:40 Comment 02/26/19 07:25 Intake & Output 02/25/19 02/26/19 02/26/19 23:59 11:59 23:59 Intake Total 1147.083 / 2295.250 1597.334 / 1597.334 Output Total 3 / 3 Balance 1144.083 / 2292.250 1597.334 / 1597.334 Weight 68.9 kg Intake: IV 902.083 / 2050.250 1597.334 / 1597.334 Oral 240 / 240 Injectate 5 / 5 Left Lateral Abdomen 5 / 5 Output: Drainage 3 / 3 Left Lateral Abdomen 3 / 3 Other: Urine Appearance Clear Clear Voiding Methods Toilet Laboratory Results WBC 5.64 k/cumm (4.4-10.8) D 02/24/19 06:45 RBC 3.54 m/cumm (4.00-5.20) L 02/24/19 06:45 Hgb 11.8 g/dL (12.0-15.5) L 02/24/19 06:45 Hct 36.5 % (36.0-46.0) 02/24/19 06:45 MCV 103.1 fL (80-95) H 02/24/19 06:45 MCH 33.3 pg (27.0-33.0) H 02/24/19 06:45 MCHC 32.3 g/dL (32.0-36.0) 02/24/19 06:45 RDW 13.0 % (11.7-14.6) 02/24/19 06:45 Plt Count 311 x1000/uL (130-400) 02/24/19 06:45 MPV 8.6 fL (8.0-11.0) 02/24/19 06:45 Immature Gran % 0.4 02/24/19 06:45 Neutrophils % 65.7 02/24/19 06:45 Lymphocytes % 15.6 02/24/19 06:45 Monocytes % 15.6 02/24/19 06:45 Eosinophils % 2.3 02/24/19 06:45 Basophils % 0.4 02/24/19 06:45 Absolute Neutrophils 3.71 k/cumm (1.2-6.7) 02/24/19 06:45 Absolute Lymphocytes 0.88 k/cumm (1.2-3.4) L 02/24/19 06:45 Absolute Monocytes 0.88 k/cumm (0.11-0.7) H 02/24/19 06:45 Absolute Eosinophils 0.13 k/cumm (0.0-0.7) 02/24/19 06:45 Absolute Basophils 0.02 k/cumm (0.0-0.2) 02/24/19 06:45 PT 9.9 sec (9.3-11.0) 02/22/19 07:43 INR 1.0 (0.9-1.1) 02/22/19 07:43 APTT 30.3 sec (21.0-31.4) 02/22/19 07:43 Sodium 142 mmol/L (136-145) 02/25/19 06:40 Potassium 3.8 mmol/L (3.5-5.1) 02/25/19 06:40 Chloride 106 mmol/L (98-107) 02/25/19 06:40 Carbon Dioxide 21.6 mmol/L (21.0-32.0) 02/25/19 06:40 Anion Gap 14.4 mmol/L (3-11) H 02/25/19 06:40 BUN 11 mg/dL (7-18) 02/25/19 06:40 Creatinine 0.81 mg/dL (0.55-1.02) 02/25/19 06:40 Estimated GFR/1.73 m2 >= 60.00 (mL/min/1.73m2) 02/25/19 06:40 Glucose 75 mg/dL (70-100) 02/25/19 06:40 Calcium 9.0 mg/dL (8.5-10.1) 02/25/19 06:40 Magnesium 1.5 mg/dL (1.8-2.4) L 02/25/19 06:40 Total Bilirubin 0.4 mg/dL (0.2-1.0) 02/22/19 07:43 AST 18 U/L (15-37) 02/22/19 07:43 ALT 35 U/L (12-78) 02/22/19 07:43 Alkaline Phosphatase 135 U/L (46-116) H 02/22/19 07:43 C-Reactive Protein 1.00 mg/dL (0.0-0.3) H 02/25/19 06:40 Total Protein 6.5 g/dL (6.4-8.2) 02/22/19 07:43 Albumin 3.2 g/dL (3.4-5.0) L 02/22/19 07:43 Lipase 67 U/L (73-393) L 02/22/19 07:43
--- NOTE | 2019-02-26 14:16 | PDOC.CMPRO ---
Care Management Progress Note S/O: Idalia remains pleasant in interaction, her diet was advanced to clear liquids today. She continues to be closely monitored. CM continues to follow and support Idalia while inpatient at [facility]. A: Idalia is a 68 year old female admitted with intestinal abscess which she has been treated as an outpatient for the past four months with oral antibiotics and close follow up. P: Idalia remains on IV antibiotics and hydration. Diet advanced to clear liquids to monitor tolerance; Idalia is still reporting feeling bloated which is consistent from admission. CM will continue to follow. Anticipate Ruthann will transport home via private vehicle with family.
--- NOTE | 2019-02-26 14:20 | CMPROGNOTE_ITS ---
Care Management Progress Note S/O: Idalia remains pleasant in interaction, her diet was advanced to clear liquids today. She continues to be closely monitored. CM continues to follow and support Idalia while inpatient at [facility]. A: Idalia is a 68 year old female admitted with intestinal abscess which she has been treated as an outpatient for the past four months with oral antibiotics and close follow up. P: Idalia remains on IV antibiotics and hydration. Diet advanced to clear liquids to monitor tolerance; Idalia is still reporting feeling bloated which is consistent from admission. CM will continue to follow. Anticipate Ruthann will transport home via private vehicle with family.
[2019-02-26] MEDS: Normal Saline Flush 10 ML SYR IVP ×4 (14:51→23:33)
--- NOTE | 2019-02-26 15:00 | DI.CT_ITS ---
SYMPTOM/DIAGNOSIS: F/U ABSCESS ABDOMEN AND PELVIC CT: There has been interval development of significant new abdominal ascites and there is marked new wall edema and mucosal hyperenhancement of the mid to distal ileum with associated mesenteric edema in this area. No gross obstruction is seen. The findings as described are concerning for ischemic process although other etiologies are not excluded. CONCLUSION: 1. Interval drainage of left paracolic abscess by pigtail catheter. 2. Marked interval increase in abdominal ascites. 3. New abnormal appearance of mid to distal ileum raising the possibility of ischemic ileitis. Please see above discussion. No gross evidence of obstruction.
[2019-02-26 15:39] VITALS: BP 159/80; PULSE 83; RESP 18; TEMP 36.7; O2SAT 99
--- NOTE | 2019-02-26 15:42 | DI.VRAD_ITS ---
Addendum created by Leonel Rios MD on 02/26/2019 5:53:37 PM EDT I personally discussed the findings with Maris Motley on 02/26/2019 at 5:53 PM EDT by telephone conference call. Initial report created on 02/26/2019 3:42:20 PM EDT EXAM: CT Abdomen and Pelvis With Contrast EXAM DATE/TIME: 02/26/2019 2:45 PM CLINICAL HISTORY: 68 years old, female; Condition or disease; Abscess; Abscess location: Abdomen; Patient HX: Follow-up on abcess TECHNIQUE: Imaging protocol: Axial computed tomography images of the abdomen and pelvis with intravenous contrast. Coronal and sagittal reformatted images were created and reviewed. Radiation optimization: All CT scans at this facility use at least one of these dose optimization techniques: automated exposure control; mA and/or kV adjustment per patient size (includes targeted exams where dose is matched to clinical indication); or iterative reconstruction. Contrast material: OMNI-PAQUE 350; Contrast volume: 100 ml; Contrast route: IV; COMPARISON: CT ABDOMEN PELVIS W 02/22/2019 9:29 AM FINDINGS: Lungs: Minimal dependent atelectasis within the lung bases. Pleural space: Tiny bilateral pleural effusions, new. ABDOMEN: Liver: Unremarkable. No mass. Gallbladder and bile ducts: Unremarkable. No calcified stones. No ductal dilation. Pancreas: Unremarkable. No ductal dilation. Spleen: Unremarkable. No splenomegaly. Adrenals: Normal. No mass. Kidneys and ureters: Unremarkable. No stones. No hydronephrosis. Stomach and bowel: Colonic diverticulosis and persistent mild wall thickening of the distal descending and proximal sigmoid colon. No new diverticulitis identified. The colonic distention present on the prior examination has improved. There is new low density wall thickening and mucosal hyperenhancement within the distal third of the ileum (with sparing of the terminal ileum) along with mesenteric edema and mild interloop fluid. The findings are suspicious for mesenteric ischemia with ischemic enteritis. Differential diagnosis includes infectious and inflammatory enteritis. No pneumatosis. Dilatation of proximal small bowel loops is new and likely secondary to early or partial small bowel obstruction (versus intestinal ileus). Appendix: No evidence of appendicitis. PELVIS: Bladder: Unremarkable as visualized. Reproductive: Unremarkable as visualized. ABDOMEN and PELVIS: Intraperitoneal space: Status post drainage of left paracolic gutter abscess with pigtail catheter in the collapsed abscess cavity. Moderate abdominal and pelvic ascites, increased in volume compared to the prior study. No free intraperitoneal air. No new abscess. Bones/joints: Degenerative disc disease and facet arthrosis at L5-S1. Bilateral L5 chronic pars defects with grade 1 anterolisthesis of L5. Anterior wedge fracture deformity of the superior endplate of L1, unchanged. Soft tissues: Subcutaneous edema throughout the abdomen and pelvis. Vasculature: The SMA and SMV are patent. Lymph nodes: Unremarkable. No enlarged lymph nodes. IMPRESSION: 1. Status post percutaneous drainage of left paracolic abscess with drainage catheter pigtail loop within collapsed abscess cavity. 2. Colonic diverticulosis and persistent mild wall thickening of the descending colon. 3. Abdominal and pelvic ascites, slightly increased in volume compared to the prior study. 4. Findings suspicious for mesenteric ischemia and ischemic ileitis, new. Differential diagnosis includes infectious and inflammatory enteritis. 5. New dilatation of small bowel proximal to the abnormal segment of ileum, likely secondary to early or partial small bowel obstruction (versus intestinal ileus). Dictated and Authenticated by: Leonel Rios MD. Ordering:LUZ MARIA Pollock MD
[2019-02-26 19:34] VITALS: BP 177/92; PULSE 80; RESP 18; TEMP 37.1; O2SAT 99
--- NOTE | 2019-02-26 22:37 | PGE_ITS ---
Date of Service Date of service: 02/26/19 Time of Service: 22:58 Subjective Interval history since last seen: pt had CT done and reviewed results w/ VRADS. They had concern for ischemic bowel.. The bowel wall of the last 15cm of ileum is very thickened nad assoc. changes in mesentery. signif amount of ascites noted in abdom. Colon wall shows less swelling and edema. The celiac access and mesenteric vessels are widely patent and no atherosclerosis in vessel patel. -The abscess has resolved. There does not look like there is any damage to the bowel from drain placement. Pt has been doing better- up walking around. + diarrhea, but no bleeding. T olerating some po's. Not much appetite b/c feels bloated. passing gas and stool. No abdom pain. no fever/chills. no N/v. urinated ok. minimal output from drain and all serous. unclear about the thickening of the bowel wall in ileum and fluid in abdom. pt on abx. C. diff neg clinically pt is doing better d/c drain in am cont current course of care Objective Objective Clinical Data: Vital Signs Temperature 36.7 C 02/26/19 15:39 Temperature Source Tympanic 02/26/19 15:39 Pulse 83 02/26/19 15:39 Pulse Rhythm Regular 02/26/19 09:43 Respiratory Rate 18 02/26/19 15:39 Respiratory Effort 02/26/19 09:43 Respiratory Depth Normal 02/26/19 09:43 Respiratory Pattern Normal 02/26/19 09:43 Blood Pressure 159/80 H 02/26/19 15:39 Blood Pressure Position Sitting 02/22/19 07:28 Pulse Oximetry 99 02/26/19 15:39 Oxygen Delivery Method Room Air 02/26/19 15:39 Oxygen Flow Rate 0 02/26/19 15:39 Pain Level 0 02/26/19 15:39 Comment 02/26/19 07:25 Intake & Output 02/25/19 02/26/19 02/26/19 23:59 11:59 23:59 Intake Total 1147.083 / 2295.250 1597.334 / 2133.584 536.25 / 2133.584 Output Total 3 / 3 4 / 4 Balance 1144.083 / 2292.250 1597.334 / 2129.584 532.25 / 2129.584 Weight 68.9 kg Intake: IV 902.083 / 0.250 1597.334 / 2127.584 531.25 / 2127.584 Oral 240 / 240 Injectate Left Lateral Abdomen Output: Drainage Left Lateral Abdomen Other: Urine Appearance Clear Clear Voiding Methods Toilet Laboratory Results WBC 5.64 k/cumm (4.4-10.8) D 02/24/19 06:45 RBC 3.54 m/cumm (4.00-5.20) L 02/24/19 06:45 Hgb 11.8 g/dL (12.0-15.5) L 02/24/19 06:45 Hct 36.5 % (36.0-46.0) 02/24/19 06:45 MCV 103.1 fL (80-95) H 02/24/19 06:45 MCH 33.3 pg (27.0-33.0) H 02/24/19 06:45 MCHC 32.3 g/dL (32.0-36.0) 02/24/19 06:45 RDW 13.0 % (11.7-14.6) 02/24/19 06:45 Plt Count 311 x1000/uL (130-400) 02/24/19 06:45 MPV 8.6 fL (8.0-11.0) 02/24/19 06:45 Immature Gran % 0.4 02/24/19 06:45 Neutrophils % 65.7 02/24/19 06:45 Lymphocytes % 15.6 02/24/19 06:45 Monocytes % 15.6 02/24/19 06:45 Eosinophils % 2.3 02/24/19 06:45 Basophils % 0.4 02/24/19 06:45 Absolute Neutrophils 3.71 k/cumm (1.2-6.7) 02/24/19 06:45 Absolute Lymphocytes 0.88 k/cumm (1.2-3.4) L 02/24/19 06:45 Absolute Monocytes 0.88 k/cumm (0.11-0.7) H 02/24/19 06:45 Absolute Eosinophils 0.13 k/cumm (0.0-0.7) 02/24/19 06:45 Absolute Basophils 0.02 k/cumm (0.0-0.2) 02/24/19 06:45 PT 9.9 sec (9.3-11.0) 02/22/19 07:43 INR 1.0 (0.9-1.1) 02/22/19 07:43 APTT 30.3 sec (21.0-31.4) 02/22/19 07:43 Sodium 142 mmol/L (136-145) 02/25/19 06:40 Potassium 3.8 mmol/L (3.5-5.1) 02/25/19 06:40 Chloride 106 mmol/L (98-107) 02/25/19 06:40 Carbon Dioxide 21.6 mmol/L (21.0-32.0) 02/25/19 06:40 Anion Gap 14.4 mmol/L (3-11) H 02/25/19 06:40 BUN 11 mg/dL (7-18) 02/25/19 06:40 Creatinine 0.81 mg/dL (0.55-1.02) 02/25/19 06:40 Estimated GFR/1.73 m2 >= 60.00 (mL/min/1.73m2) 02/25/19 06:40 Glucose 75 mg/dL (70-100) 02/25/19 06:40 Calcium 9.0 mg/dL (8.5-10.1) 02/25/19 06:40 Magnesium 1.5 mg/dL (1.8-2.4) L 02/25/19 06:40 Total Bilirubin 0.4 mg/dL (0.2-1.0) 02/22/19 07:43 AST 18 U/L (15-37) 02/22/19 07:43 ALT 35 U/L (12-78) 02/22/19 07:43 Alkaline Phosphatase 135 U/L (46-116) H 02/22/19 07:43 C-Reactive Protein 1.00 mg/dL (0.0-0.3) H 02/25/19 06:40 Total Protein 6.5 g/dL (6.4-8.2) 02/22/19 07:43 Albumin 3.2 g/dL (3.4-5.0) L 02/22/19 07:43 Lipase 67 U/L (73-393) L 02/22/19 07:43
[2019-02-26 23:36] VITALS: BP 173/85; PULSE 78; RESP 16; TEMP 37.2; O2SAT 95
[2019-02-26] MEDS: Ketorolac 15 MG/ML VIAL IVP (23:45)
--- NOTE | 2019-02-27 00:21 | NUR.NOTE ---
Pt state she is feeling more bloated than in earlier in the evening and also feeling a lot of gas in the stomach area, ww went for a walk. Abdominal girt at this time is 43 inches.
[2019-02-27] MEDS: PIPERACILLIN/TAZO 3.375 GM in Normal Saline 50 ML IVPB ×4 (03:35→22:29)
[2019-02-27] MEDS: Normal Saline Flush 10 ML SYR IVP ×5 (03:36→15:27)
[2019-02-27 04:54] VITALS: BP 160/80; PULSE 71; RESP 18; TEMP 36.9; O2SAT 96
[2019-02-27] MEDS: Levothyroxine 125 MCG TAB PO (05:28)
[2019-02-27] MEDS: Lactated Ringers 1,000 ML 125 ML IV (06:36)
[2019-02-27 07:03] LABS: Absolute Basophil Count 0.03 k/cumm (0.0-0.2); Absolute Eosinophil Count 0.27 k/cumm (0.0-0.7); Absolute Lymphocyte Count 1.06 k/cumm (1.2-3.4); Absolute Monocyte Count 0.69 k/cumm (0.11-0.7); Absolute Neutrophil Count 4.51 k/cumm (1.2-6.7); Basophils % 0.5; Eosinophils % 4.1; HCT 35.1 % (36.0-46.0); HGB 11.8 g/dL (12.0-15.5); Immature Grans % 1.5; Lymphocytes % 15.9; Mean Corp. HGB Concentration 33.6 g/dL (32.0-36.0); Mean Corpuscular Hemoglobin 33.3 pg (27.0-33.0); Mean Corpuscular Volume 99.2 fL (80-95); Mean Platelet Volume 8.8 fL (8.0-11.0); Monocytes % 10.4; Neutrophils % 67.6; Platelet Count 304 x1000/uL (130-400); RBC 3.54 m/cumm (4.00-5.20); RBC Distribution Width 12.7 % (11.7-14.6); White Blood Cell Count 6.66 k/cumm (4.4-10.8)
--- NOTE | 2019-02-27 07:15 | DI.RAD_ITS ---
SYMPTOM/DIAGNOSIS: SMALL BOWEL OBSTRUCTION, DIVERTICULITIS ABDOMEN AND UPRIGHT: Three views were obtained. Minimal contrast noted in the urinary tract following yesterday's contrast enhanced CT. Previously noted left pigtail catheter noted in position. Marked small bowel and colonic dilatation as noted on CT of 02/26. No gross free intraperitoneal air. CONCLUSION: Findings consistent with severe ileus obstruction.
--- NOTE | 2019-02-27 07:18 | NUR.NOTE ---
Nursing Note: Late entry for WednesdayFebruary 26. Expressed concern to the Dr about the drip rate of ringers lactate . I expressed concern in relationship from to patients c/o bloating. Awaiting orders
[2019-02-27 07:20] LABS: Anion Gap 15.5 mmol/L (3-11); BUN 6 mg/dL (7-18); C-Reactive Protein 0.51 mg/dL (0.0-0.3); CO2 19.5 mmol/L (21.0-32.0); CREATININE 0.72 mg/dL (0.55-1.02); Calcium 8.5 mg/dL (8.5-10.1); Chloride 106 mmol/L (98-107); Glucose 69 mg/dL (70-100); Magnesium 1.4 mg/dL (1.8-2.4); Potassium 3.4 mmol/L (3.5-5.1); Sodium 141 mmol/L (136-145)
[2019-02-27 07:30] VITALS: BP 157/93; PULSE 84; RESP 18; TEMP 37; O2SAT 99
[2019-02-27] MEDS: Lisinopril 20 MG TAB PO (08:07)
--- NOTE | 2019-02-27 08:13 | W.PM.PROGNOT ---
Date of Service Date of service: 02/27/19 Time of Service: 08:13 Assessment and Plan (1) Diverticulitis of large intestine with abscess: Current visit: Yes Status: Acute Patient is doing well. Denies abdominal pain. Reports feeling full which has been inhibiting her ability to take in PO fluids/foods. She is having small, liquid BMs. DIET- Poor PO intake. Continue Clear liquids as tolerated DRAIN- Currently minimal output of bloody/serous. Per Dr. Motley will D/C this later today. ACTIVITY- Continue activity as tolerated Ambulating in the hallway. Antibiotics- Continue Zosyn. Disposition- Will D/C home on PO antibiotics Qualifiers: Diverticulitis bleeding: without bleeding Qualified Code(s): K57.20 - Diverticulitis of large intestine with perforation and abscess without bleeding Subjective Interval history since last seen: Patient reports that she is feeling fine today. She has not been able to increase her PO intake secondary to lack of hunger and early satiety. I am full. (+) small, liquid BMs. Exam Const General: cooperative, healthy appearing and comfortable Orientation: alert and oriented x3 Resp Effort & Inspection: normal respiratory effort, no audible wheezes and no cough GI Inspection: normal to inspection and non-distended Palpation: soft, no guarding and nontender Auscultation: hypoactive bowel sounds Objective Objective Clinical Data: Abnormal lab results 02/27/19 02/27/19 Range/Units 06:25 06:25 RBC 3.54 L (4.00-5.20) m/cumm Hgb 11.8 L (12.0-15.5) g/dL Hct 35.1 L (36.0-46.0) % MCV 99.2 H (80-95) fL MCH 33.3 H (27.0-33.0) pg Absolute Lymphocytes 1.06 L (1.2-3.4) k/cumm Potassium 3.4 L (3.5-5.1) mmol/L Carbon Dioxide 19.5 L (21.0-32.0) mmol/L Anion Gap 15.5 H (3-11) mmol/L BUN 6 L (7-18) mg/dL Glucose 69 L (70-100) mg/dL Magnesium 1.4 L (1.8-2.4) mg/dL C-Reactive Protein 0.51 H (0.0-0.3) mg/dL Vital Signs Temperature 37.0 C 02/27/19 07:30 Temperature Source Tympanic 02/27/19 07:30 Pulse 84 02/27/19 07:30 Pulse Rhythm Regular 02/26/19 19:33 Respiratory Rate 18 02/27/19 07:30 Respiratory Effort Non-Labored 02/27/19 07:46 Respiratory Depth Normal 02/27/19 07:46 Respiratory Pattern Normal 02/27/19 07:46 Blood Pressure 157/93 H 02/27/19 07:30 Blood Pressure Position Sitting 02/22/19 07:28 Pulse Oximetry 99 02/27/19 07:30 Oxygen Delivery Method Room Air 02/27/19 07:30 Oxygen Flow Rate 0 02/27/19 07:30 Pain Level 1 02/27/19 07:30 Comment 02/26/19 07:25 Intake & Output 02/26/19 02/27/19 02/27/19 18:59 06:59 18:59 Intake Total 1063.167 / 3034.833 1971.666 / 3034.833 Output Total Balance 1059.167 / 3023.833 1964.666 / 3023.833 Weight 71.1 kg Intake: IV 1058.167 / 3019.833 1961.666 / 3019.833 Injectate Left Lateral Abdomen Output: Drainage Left Lateral Abdomen Other: Urine Color Pale Yellow Urine Appearance Clear Clear Urine Odor None Comment voided independently in the tiolet Stool Size Small Stool Characteristics Liquid Voiding Methods Toilet Toilet Laboratory Results WBC 6.66 k/cumm (4.4-10.8) 02/27/19 06:25 RBC 3.54 m/cumm (4.00-5.20) L 02/27/19 06:25 Hgb 11.8 g/dL (12.0-15.5) L 02/27/19 06:25 Hct 35.1 % (36.0-46.0) L 02/27/19 06:25 MCV 99.2 fL (80-95) H 02/27/19 06:25 MCH 33.3 pg (27.0-33.0) H 02/27/19 06:25 MCHC 33.6 g/dL (32.0-36.0) 02/27/19 06:25 RDW 12.7 % (11.7-14.6) 02/27/19 06:25 Plt Count 304 x1000/uL (130-400) 02/27/19 06:25 MPV 8.8 fL (8.0-11.0) 02/27/19 06:25 Immature Gran % 1.5 02/27/19 06:25 Neutrophils % 67.6 02/27/19 06:25 Lymphocytes % 15.9 02/27/19 06:25 Monocytes % 10.4 02/27/19 06:25 Eosinophils % 4.1 02/27/19 06:25 Basophils % 0.5 02/27/19 06:25 Absolute Neutrophils 4.51 k/cumm (1.2-6.7) 02/27/19 06:25 Absolute Lymphocytes 1.06 k/cumm (1.2-3.4) L 02/27/19 06:25 Absolute Monocytes 0.69 k/cumm (0.11-0.7) 02/27/19 06:25 Absolute Eosinophils 0.27 k/cumm (0.0-0.7) 02/27/19 06:25 Absolute Basophils 0.03 k/cumm (0.0-0.2) 02/27/19 06:25 PT 9.9 sec (9.3-11.0) 02/22/19 07:43 INR 1.0 (0.9-1.1) 02/22/19 07:43 APTT 30.3 sec (21.0-31.4) 02/22/19 07:43 Sodium 141 mmol/L (136-145) 02/27/19 06:25 Potassium 3.4 mmol/L (3.5-5.1) L 02/27/19 06:25 Chloride 106 mmol/L (98-107) 02/27/19 06:25 Carbon Dioxide 19.5 mmol/L (21.0-32.0) L 02/27/19 06:25 Anion Gap 15.5 mmol/L (3-11) H 02/27/19 06:25 BUN 6 mg/dL (7-18) L 02/27/19 06:25 Creatinine 0.72 mg/dL (0.55-1.02) 02/27/19 06:25 Estimated GFR/1.73 m2 >= 60.00 (mL/min/1.73m2) 02/27/19 06:25 Glucose 69 mg/dL (70-100) L 02/27/19 06:25 Calcium 8.5 mg/dL (8.5-10.1) 02/27/19 06:25 Magnesium 1.4 mg/dL (1.8-2.4) L 02/27/19 06:25 Total Bilirubin 0.4 mg/dL (0.2-1.0) 02/22/19 07:43 AST 18 U/L (15-37) 02/22/19 07:43 ALT 35 U/L (12-78) 02/22/19 07:43 Alkaline Phosphatase 135 U/L (46-116) H 02/22/19 07:43 C-Reactive Protein 0.51 mg/dL (0.0-0.3) H 02/27/19 06:25 Total Protein 6.5 g/dL (6.4-8.2) 02/22/19 07:43 Albumin 3.2 g/dL (3.4-5.0) L 02/22/19 07:43 Lipase 67 U/L (73-393) L 02/22/19 07:43
[2019-02-27] MEDS: Normal Saline 500 ML 30 ML IVPB (09:40)
[2019-02-27 11:51] VITALS: BP 172/84; PULSE 84; RESP 20; TEMP 36.7; O2SAT 97
[2019-02-27] MEDS: FAMOTIDINE 20 MG/50 ML BAG 200 MG IVPB (12:18)
[2019-02-27] MEDS: Enoxaparin 40 MG/0.4 ML SYR SC (12:19)
--- NOTE | 2019-02-27 15:36 | NUR.NOTE ---
patients ankles and feet more noticibly swollen this afternoon, this is concerning to the patient, no sob , clear lungs reg HR. patient reassurred. ccc to call surgeon Nursing Note:
--- NOTE | 2019-02-27 16:00 | CHAPLAIN ---
Idalia was sitting up in her chair when I visited. She told me she she is mom to Nagi Schneider, our [facility] [employer]. Idalia's mom, Pretty, recently at 93, and Idalia's brother, who was living with Pretty, a few weeks later. Idalia said her mom had very peaceful at home and was up and walking around until just a few days before she . Her brother was home alone and called family members for help and was transported to [facility] where he . Idalia knows she has been dealing with a lot stress, and is used to being the one that others rely on, so requiring help and asking for help, is new to her. She talked about what a good support Nagi and his are to her. Idalia is a member of [place] and [employer] Clay stopped in briefly to see her on Wednesday. Fr. Clay offered the masses for Jonathon's mom and brother, so she is familiar with him and enjoys visiting with him. I offered a prayer with Idalia before leaving, Idalia asked that we pray for her sister too..
--- NOTE | 2019-02-27 17:15 | PDOC.CMPRO ---
- If Service Date Differs Date of service: 02/27/19 Time of Service: 17:15 Care Management Progress Note S/O: Idalia is alert and engaged. CM listens while Idalia expresses her concern r/t her delayed healing and recovery. Idalia describes feelings of bloating and ankle swelling she states she has urinate minimal today. CM stayed in the room while met with Idalia and she was able to ask appropriate questions related to her care including review of the plan. Per provider Idalia will have a indwelling cath inserted, IV lasix, and consult for a PICC. Concerns related to low protein anticipate nutrition consult for TPN if she is not able to tolerate oral intake. Idalia states it not what she wanted to hear from the surgeon however feels better knowing what the plan is for the next 24 hours. CM continue to provide support to the patient while she processed new information from provider. A: Idalia is a 68 year old female admitted with intestinal abscess which she has been treated as an outpatient for the past four months with oral antibiotics and close follow up. P: Idalia remains on IV antibiotics and hydration. Diet advanced to clear liquids to monitor tolerance; Idalia is still reporting feeling bloated which is consistent from admission. She will have a PICC consult, possible TPN consult pending oral intake. CM will continue to follow. Anticipate Ruthann will transport home via private vehicle with family.
[2019-02-27] MEDS: MAGNESIUM SULFATE 2 GM/50 ML BAG IVPB (17:57)
[2019-02-27 18:32] VITALS: BP 177/92; PULSE 77; RESP 22; TEMP 36.8; O2SAT 98
[2019-02-27] MEDS: POTASSIUM CHLORIDE 20 MEQ/100 ML BAG 50 MEQ IVPB (20:15)
[2019-02-27 20:38] VITALS: BP 195/98; PULSE 88; RESP 18; TEMP 36.8; O2SAT 98
[2019-02-28] VITALS (59 sets, daily range): BP systolic 78–161; BP diastolic 44–93; PULSE 66–114; RESP 11–20; TEMP 36.3–37.1; O2SAT 94–100
[2019-02-28] MEDS: FAMOTIDINE 20 MG/50 ML BAG 200 MG IVPB ×2 (00:23→17:43)
[2019-02-28] MEDS: Normal Saline Flush 10 ML SYR IVP (00:24)
[2019-02-28] MEDS: PIPERACILLIN/TAZO 3.375 GM in Normal Saline 50 ML IVPB ×3 (03:56→17:48)
[2019-02-28] MEDS: Levothyroxine 125 MCG TAB PO (05:24)
[2019-02-28] MEDS: Simethicone 80 MG CHEW PO (06:45)
[2019-02-28 08:36] LABS: Abs Immature Grans 0.09 k/cumm (0.0-0.09); Absolute Basophil Count 0.04 k/cumm (0.0-0.2); Absolute Eosinophil Count 0.38 k/cumm (0.0-0.7); Absolute Lymphocyte Count 1.12 k/cumm (1.2-3.4); Absolute Monocyte Count 0.75 k/cumm (0.11-0.7); Absolute Neutrophil Count 5.06 k/cumm (1.2-6.7); Basophils % 0.5; Eosinophils % 5.1; HGB 11.8 g/dL (12.0-15.5); Immature Grans % 1.2; Lymphocytes % 15.1; Mean Corp. HGB Concentration 33.7 g/dL (32.0-36.0); Mean Corpuscular Hemoglobin 33.2 pg (27.0-33.0); Mean Corpuscular Volume 98.6 fL (80-95); Mean Platelet Volume 8.5 fL (8.0-11.0); Monocytes % 10.1; Platelet Count 290 x1000/uL (130-400); RBC 3.55 m/cumm (4.00-5.20); RBC Distribution Width 12.6 % (11.7-14.6); White Blood Cell Count 7.44 k/cumm (4.4-10.8)
--- NOTE | 2019-02-28 08:37 | PGE_ITS ---
Date of Service Date of service: 02/28/19 Time of Service: 08:30 Assessment and Plan (1) Diverticulitis of large intestine with abscess: Current visit: Yes Status: Acute Long discussion with Idalia regarding the CT scan results and the fact that she has not improved and maybe even gotten a little worse in the last 48 hours. I do not think that we are going to progress anymore and I recommended surgery with bowel resection and colostomy vs anastamosis and loop ileostomy. It will be an open procedure due to her dilated bowel. I also would like to place a central line and possibly an a-line. I will ask anesthesia for an epidural or other block to assist with post op pain control. There is a possibility for her to end up in the ICU afterwards. Risks, benefits and complications have been reviewed. Complications include but are not limited to bleeding, infection, post op abscess, post-op anastamostic leak, injury to vessels, bowel and other organs, wound dehicense, wound infection, intra-operative cardiac complications like an MT as well as post- operative MT and . Questions were entertained and answered to her satisfaction and she wished to proceed. No guarantees were given or implied. I called her son and let him know about surgery as well. Qualifiers: Diverticulitis bleeding: without bleeding Qualified Code(s): K57.20 - Diverticulitis of large intestine with perforation and abscess without bleeding Subjective Interval history since last seen: Feeling about the same. Still with a bloated abdomen and slight RLQ pain. No N/V. small liquid BM's yesterday. Exam Resp Effort & Inspection: normal respiratory effort Auscultation: clear to auscultation bilaterally Cardio Rate: regular rate Rhythm: regular rhythm Heart Sounds: no gallops, no murmurs and no rubs GI Inspection: distended Palpation: soft and tender in the RLQ Auscultation: hypoactive bowel sounds Objective Objective Clinical Data: Vital Signs Temperature 98.2 F 02/28/19 03:48 Temperature Source Tympanic 02/28/19 03:48 Pulse 71 02/28/19 03:48 Pulse Rhythm Regular 02/27/19 20:27 Respiratory Rate 18 02/28/19 03:48 Respiratory Effort Non-Labored 02/27/19 20:27 Respiratory Depth Normal 02/27/19 20:27 Respiratory Pattern Normal 02/27/19 20:27 Blood Pressure 151/83 H 02/28/19 03:48 Blood Pressure Position Sitting 02/22/19 07:28 Pulse Oximetry 96 02/28/19 03:48 Oxygen Delivery Method Room Air 02/28/19 03:48 Oxygen Flow Rate 0 02/28/19 03:48 Pain Level 0 02/27/19 11:51 Comment 02/27/19 11:51 Intake & Output 02/27/19 02/27/19 02/28/19 11:59 23:59 11:59 Intake Total 1817.916 / 3338.333 1520.417 / 3338.333 475 / 475 Output Total 403 / 403 Balance 1813.916 / 3330.333 1516.417 / 3330.333 72 / 72 Weight 156 lb 11.979 oz Intake: IV 1452.916 / 2363.333 910.417 / 2363.333 120 / 120 Oral 360 / 960 600 / 960 350 / 350 Injectate Left Lateral Abdomen Output: Drainage Left Lateral Abdomen Urine 400 / 400 Other: Urine Color Pale Yellow Pale Yellow Yellow Urine Appearance Clear Cloudy Clear Urine Odor None Comment Patient voiding in toilet, flushed independently. Unable to assess void amount and characteristics at this time. after insertion and immediate return , flow slowed down, peer nurse assisted and balloon defated, position changed, balloon reinflated, still a slow flow, bladder scanned for 327, catheter irrigated no resistance with flush, and all of the fluid was returned, patient was ambulated,still noconsistent flow Stool Size Smear Small Stool Characteristics Liquid Liquid Voiding Methods Toilet Laboratory Results WBC 6.66 k/cumm (4.4-10.8) 02/27/19 06:25 RBC 3.54 m/cumm (4.00-5.20) L 02/27/19 06:25 Hgb 11.8 g/dL (12.0-15.5) L 02/27/19 06:25 Hct 35.1 % (36.0-46.0) L 02/27/19 06:25 MCV 99.2 fL (80-95) H 02/27/19 06:25 MCH 33.3 pg (27.0-33.0) H 02/27/19 06:25 MCHC 33.6 g/dL (32.0-36.0) 02/27/19 06:25 RDW 12.7 % (11.7-14.6) 02/27/19 06:25 Plt Count 304 x1000/uL (130-400) 02/27/19 06:25 MPV 8.8 fL (8.0-11.0) 02/27/19 06:25 Immature Gran % 1.5 02/27/19 06:25 Neutrophils % 67.6 02/27/19 06:25 Lymphocytes % 15.9 02/27/19 06:25 Monocytes % 10.4 02/27/19 06:25 Eosinophils % 4.1 02/27/19 06:25 Basophils % 0.5 02/27/19 06:25 Absolute Neutrophils 4.51 k/cumm (1.2-6.7) 02/27/19 06:25 Absolute Lymphocytes 1.06 k/cumm (1.2-3.4) L 02/27/19 06:25 Absolute Monocytes 0.69 k/cumm (0.11-0.7) 02/27/19 06:25 Absolute Eosinophils 0.27 k/cumm (0.0-0.7) 02/27/19 06:25 Absolute Basophils 0.03 k/cumm (0.0-0.2) 02/27/19 06:25 PT 9.9 sec (9.3-11.0) 02/22/19 07:43 INR 1.0 (0.9-1.1) 02/22/19 07:43 APTT 30.3 sec (21.0-31.4) 02/22/19 07:43 Sodium 141 mmol/L (136-145) 02/27/19 06:25 Potassium 3.4 mmol/L (3.5-5.1) L 02/27/19 06:25 Chloride 106 mmol/L (98-107) 02/27/19 06:25 Carbon Dioxide 19.5 mmol/L (21.0-32.0) L 02/27/19 06:25 Anion Gap 15.5 mmol/L (3-11) H 02/27/19 06:25 BUN 6 mg/dL (7-18) L 02/27/19 06:25 Creatinine 0.72 mg/dL (0.55-1.02) 02/27/19 06:25 Estimated GFR/1.73 m2 >= 60.00 (mL/min/1.73m2) 02/27/19 06:25 Glucose 69 mg/dL (70-100) L 02/27/19 06:25 Calcium 8.5 mg/dL (8.5-10.1) 02/27/19 06:25 Magnesium 1.4 mg/dL (1.8-2.4) L 02/27/19 06:25 Total Bilirubin 0.4 mg/dL (0.2-1.0) 02/22/19 07:43 AST 18 U/L (15-37) 02/22/19 07:43 ALT 35 U/L (12-78) 02/22/19 07:43 Alkaline Phosphatase 135 U/L (46-116) H 02/22/19 07:43 C-Reactive Protein 0.51 mg/dL (0.0-0.3) H 02/27/19 06:25 C-React Prot High Sens 9.17 mg/L 02/24/19 06:45 Total Protein 6.5 g/dL (6.4-8.2) 02/22/19 07:43 Albumin 3.2 g/dL (3.4-5.0) L 02/22/19 07:43 Lipase 67 U/L (73-393) L 02/22/19 07:43
[2019-02-28 08:53] LABS: ALT 18 U/L (12-78); AST 18 U/L (15-37); Albumin 2.2 g/dL (3.4-5.0); Alkaline Phosphatase 54 U/L (46-116); Anion Gap 13.5 mmol/L (3-11); BUN 4 mg/dL (7-18); Bilirubin, Total 0.2 mg/dL (0.2-1.0); CO2 21.5 mmol/L (21.0-32.0); CREATININE 0.78 mg/dL (0.55-1.02); Calcium 8.6 mg/dL (8.5-10.1); Chloride 106 mmol/L (98-107); Glucose 68 mg/dL (70-100); Magnesium 1.6 mg/dL (1.8-2.4); Potassium 3.5 mmol/L (3.5-5.1); Sodium 141 mmol/L (136-145); TSH 5.32 uIU/mL (0.358-3.74); Total Protein 4.6 g/dL (6.4-8.2)
[2019-02-28] MEDS: Lactated Ringers 1,000 ML 50 ML IV ×2 (09:00→12:01)
[2019-02-28] MEDS: Bupivacaine 0.25% Pres-Free 10 ML VIAL (10:20)
[2019-02-28] MEDS: Bupivacaine 0.5% Pres-Free 30 ML VIAL (10:21)
[2019-02-28] MEDS: Lidocaine 1% Multi-Dose 50 ML VIAL (10:21)
--- NOTE | 2019-02-28 10:45 | BOWEL_PTH ---
PATIENT: Idalia Manzo LOC: U#:[id number] AGE/SX: 68/F ROOM: 215 RE02/22/[address]: Rosita Tapia MD : 1950 BED: A DIS: 03/07/2019 SPEC #: [id number] RECD: 02/28/19 17:21 STATUS: MAURICIO REQ #: [id number] MARTA: 02/28/19 10:[address]: Rosita Tapia DEPT: Surgical Specimen RECD BY: Kimberley Dang ENTERED: 02/28/19 17:24 SP TYPE: Bowel OTHR DR: Deepthi Whitehead, NAOMI Tissues: 1 - BOWEL RESECTION(OTHER) 2 - OVARY TUMOR W OR W/O TUBES 3 - OVARY TUMOR W OR W/O TUBES 4 - BIOPSY BOWEL Procedures: GROSS AND MICRO LEVEL 4 GROSS AND MICRO LEVEL 5 Comments: [id number]
--- NOTE | 2019-02-28 10:45 | PAPNONF_PTH ---
PATIENT: Idalia Manzo LOC: U#:[id number] AGE/SX: 68/F ROOM: 215 RE02/22/[address]: Rosita Tapia MD : 1950 BED: A DIS: 03/07/2019 SPEC #: [id number] RECD: 02/28/19 17:29 STATUS: MAURICIO REDot #: [id number] MARTA: 02/28/19 10:[address]: Rosita Tapia DEPT: [facility] Cytology RECD BY: Kimberley Dang ENTERED: 02/28/19 17:30 SP TYPE: ANTIONETTE CULVER DR: Deepthi Whitehead APRN Tissues: 1 - BODY FLUID CYTO(NOT S/U/N/EM)[facility] 2 - BODY FLUID CYTO(NOT S/U/N/EM)[facility] Procedures: BODY FLUID CYTO(NOT SPU/UR/NIP/ENDOM)[facility] CYTOLOGY CELL BLOCK Comments: [id number] (BOTH SAMPLES SENT FRESH) (#1 TOTAL VOLUME = 10 ml'S; #2 TOTAL VOLUME = 70 ml's)
--- NOTE | 2019-02-28 13:07 | DI.RAD_ITS ---
SYMPTOMS/DIAGNOSIS: CENTRAL LINE PLACEMENT, DIVERTICULITIS WITH ABSCESS PORTABLE AP CHEST: There is a right central venous catheter in position, which appears to have been inserted via the right jugular route. NG tube is in place in the gastric fundus/body. Lungs are grossly clear and well expanded.
[2019-02-28] MEDS: FentaNYL/ROPIvacaine 2 mcg/ml and 0.1% 200 ML CADD Cassette EP (13:37)
--- NOTE | 2019-02-28 16:58 | ROE_ITS ---
Date of service: 02/28/19 Time of Service: 10:30 Operative Note DATE OF PROCEDURE: 02/28/19 PRE-OP DIAGNOSIS: Diverticulitis and ascitis POST-OP DIAGNOSIS: other (Diverticulitis with obstruction and ascitis) PROCEDURE: 1. Exploratory Laparotomy with sigmoid resection and splenic flexure mobilization 2. Colostomy creation 3. Bilateral slapingoopherectomy 4. colon polyp removal SURGEON: Rosita Tapia ASSISTING SURGEON: Maris Motley CURTAIN INSPECTOR: Eliz Sawyer ANESTHESIA: GETA and epidural ESTIMATED BLOOD LOSS: 100 PATHOLOGY: other (1. sigmoid colon/ 2. colon polyps/3. right and left ovaries/ 4. Ascitis for cytology) COMPLICATIONS: None Patient was transported to: PACU Patient's condition: stable Indications: Ms. Manzo is a very pleasant 68-year-old female who was admitted on February 22 with severe diverticulitis moderate ascites and 3 cm abscess. She underwent interventional radiology abscess drainage at [facility] on , February 23. She then seemed to get better and on Wednesday felt hungry. She had had several liquid stools so she was started on a clear liquid diet. On Wednesday she felt more bloated was not really drinking very much and another CAT scan was done. The CAT scan showed worsening ascites with inflammation and thickening of the distal small bowel. The sigmoid colon did look a little bit better and the abscess had resolved. By Wednesday the patient was really not doing that well she was having increased pain increased bloating and at that time exploratory laparotomy was recommended. We reviewed the sigmoid resection with colostomy versus sigmoid resection anastomosis and loop ileostomy. I also recommended a central line for postoperative medications and also TPN as she has now been without any nutrition for 7 days. Risks, benefits and complications were reviewed with her. Complications include but are not limited to bleeding, infection, injury to the small bowel, injury to other organs, including the ureter, bladder, kidneys, spleen. Pneumothorax during central line placement. DE intraoperatively or postoperatively. Anastomotic leak if an anastomosis is done. Intra-abdominal abscess. Questions were entertained and answered to their satisfaction and she wished to proceed. No guarantees were given or implied. Findings: Upon entrance to the abdomen about 4 L of clear ascitic fluid was noted. About 30 cc were sent for cytology. The sigmoid colon was then palpated and a 5 cm area of hard inflamed colon was noted. No purulent discharge was identified. The small bowel was noted to be completely normal although slightly dilated. There was no thickening or erythema around the small bowel. The liver was palpated and was felt to be normal. The spleen was visualized and was normal. A 3 to 4 cm ovarian cyst was noted on the left ovary and the right ovary was palpated and felt hard. Procedure Description: After informed consent was obtained the patient was taken to the PACU. In the PACU anesthesia placed an epidural without any difficulty. The patient was then brought into the operating room and placed in a supine position on the operating room table. SCDs were plugged in. She was then placed under general anesthesia and intubated without difficulty. An NG tube was placed by anesthesia. She was then placed in lithotomy position. The perianal and vaginal area were prepped with iodine in the abdomen was prepped with chlorhexidine. The abdomen and legs were then draped in a sterile surgical fashion. A timeout was done. The patient's name, date of , procedure to be done, antibiotic prophylaxis, DVT prophylaxis, potential complications were all reviewed. Fire risk was assessed. Next 1% lidocaine mixed with half percent Marcaine was injected in the midline above and below the umbilicus. Using a 10 blade an incision was made from about 3 inches above the umbilicus to just above above the pubic symphysis. Dissection was taken down with cautery through the subcutaneous fat to the fascia. A small opening was made with cautery and the fascia and then finger dissection was done until it was in the peritoneum. Placing my fingers under the peritoneum the fascia was opened and clear yellow ascites was noted. A 30 cc of the fluid was removed and sent to pathology for cytology. The rest of the fluid was suctioned out. The length of the fascia was opened using cautery. The omentum was then identified and pulled off of the small bowel. The small bowel was carefully inspected from the ligament of Treitz all the way down to its junction with the cecum. It was dilated to approximately 3.5 to 4 cm. There was no inflammation and no thickening of the small bowel. The Omni was then secured to the bed and the abdominal wall was retracted. The small bowel was then retracted and secured into the right upper quadrant. The small bowel was protected with a large blue towel while being secured up in the right upper quadrant. The rectum was then palpated and was felt to be normal I then noted a 3 cm ovarian cyst on the left ovary. The right ovary was palpated and felt hard. The sigmoid colon just above the pelvic rim was palpated and felt hard. There is about a 4 cm area of inflammation and thickening. At this point a small window was created with a hemostat just above the rectum and the mesentery. Using a YOUNG 75 stapler the colon was stapled off. Using some blunt dissection the colon was mobilized away from the retroperit oneum. Its mesentery was transected using LigaSure. Once the mesentery was dissected to about 10 cm above the hardened area we are at the splenic flexure. The splenic flexure was then mobilized gently. The spleen was identified and kept out of harm's way. Some short gastric vessels were transected using the LigaSure. The descending colon was then transected with a curved stapler for thick tissue. The bowel was removed and a suture was placed in the distal suture line and removed from the operating table. We continued to mobilize around the splenic flexure with the LigaSure. The omentum between the stomach and transverse colon was transected allowing us to mobilize the colon even more to where it was nice and floppy and would be able to create a colostomy. Because of the ascitic fluid and some gelatin/mucinous-like material that we found in the abdomen and the way that the ovaries looked decision was made to do a bilateral salpingo-oophorectomy for the concern of possible neoplasm. The right fallopian tube and ovary were removed first transecting the vessels and the fallopian tube with the LigaSure. No bleeding was noted from the area. The same was done on the left side. The ovaries were placed in formalin and separate containers and sent to pathology. The abdomen was then irrigated with 2 L of warm normal saline. Small amount of bleeding was noted from the rese ction area of the left fallopian tube and this was suture ligated with 3-0 silk. The right side was again identified and no bleeding was noted. The left gutter was then visualized and a small amount of bleeding was noted from the retropubic peritoneum this was cauterized. Another liter of saline was placed into the abdomen and suctioned out. At the end the effluent was clear. At this point I palpated the stomach and the NG tube was noted to be in good position. Anesthesia secured at to the patient. The liver was palpated and felt smooth no masses were identified. Next a small 2-1/2 cm round opening was made just below the umbilicus and the skin with a 15 blade. Using cautery the subcutaneous tissue was dissected away down to the fascia. The fascia was scored. The peritoneum was entered with a hemostat and then that was dilated with my fingers to allow me to pull the descending colon up to the skin. There was no tension on the colon. Colon was pink. The fascia was then closed using two #1 Vicryl sutures. Prior to closing the abdomen a sponge count was done and it was correct. Once the fascia was closed the skin was reapproximated using ari. At this point the colostomy was created. The staple line was cut using Barnett scissors. The colon was attached to the fascia in 2 places to anchor it in place. Using 3-0 silk pop- off sutures the colostomy was created in the usual fashion. Once secured the skin was cleaned and dried and an ostomy appliance was applied. The midline incision was cleaned and dried and a wound VAC was applied. A leak was identified as we started the wound VAC and the couple of areas were reinforced with Tegaderms. And at that point the wound VAC was working. A second sponge, instrument and needle count was done and it was correct. Urine output was noted to be 100 cc. Urine was clear and there was no blood. While I was closing the abdomen and creating the colostomy Dr. Reza placed a right IJ triple-lumen central line under ultrasound guidance. There were no complications and it was done in the usual fashion. Chest x-ray after the case showed good positioning of the central line and no pneumothorax. Once the central line was in place the patient was woken up extubated and taken back to recovery room in stable condition. There were no immediate complications.
--- NOTE | 2019-02-28 17:22 | PDOC.CMPRO ---
- If Service Date Differs Date of service: 02/28/19 Time of Service: 17:22 Care Management Progress Note S/O: Idalia is awake and speaking with and her family at her side when CM arrives. She has an NG tube, central line, and IV antibiotics. She has an epidural in place and a new ordered for TPN. Idalia is sleepy at the time of visit. CM offered support to Idalia, family and care team and will continue to assess for discharge needs. CM did notify [facility] of referral and the start of discharge planning. A: Idalia is a 68 year old female admitted with intestinal abscess which she has been treated as an outpatient for the past four months with oral antibiotics and close follow up. She is now post op day 0 for the following procedures: 1. Exploratory Laparotomy with sigmoid resection and splenic flexure mobilization 2. Colostomy creation 3. Bilateral slapingoopherectomy 4. colon polyp removal P: Idalia transition to ICU level of care today post op day 0. Idalia will return home with new home health orders for nursing, and wound management including new(stoma) ostomy care when she is medically ready for discharge. She has family that will also provide assistance and support at home. Idalia will need education r/t wound management, stoma and ostomy care she should also identify a support person who can learn the care as well. CM will revisit this with the patient once she is more alert. CM to continue to provide support discharge planing and disposition.
[2019-02-28] MEDS: Lactated Ringers 1,000 ML 125 ML IV (17:43)
[2019-02-28] MEDS: Normal Saline 500 ML 25 ML IVPB (17:49)
[2019-02-28] MEDS: Ketorolac 15 MG/ML VIAL IVP (19:20)
[2019-02-28] MEDS: Enoxaparin 40 MG/0.4 ML SYR SC (19:23)
[2019-02-28] MEDS: Normal Saline 1,000 ML 1000 ML IV (22:30)
[2019-03-01] VITALS (100 sets, daily range): BP systolic 89–133; BP diastolic 44–72; PULSE 70–123; RESP 12–28; TEMP 36.4–37.8; O2SAT 87–100
[2019-03-01] MEDS: Ketorolac 15 MG/ML VIAL IVP ×5 (00:20→23:49)
[2019-03-01] MEDS: PIPERACILLIN/TAZO 3.375 GM in Normal Saline 50 ML IVPB ×5 (00:23→23:51)
[2019-03-01] MEDS: Lactated Ringers 1,000 ML 150 ML IV ×3 (00:49→16:29)
[2019-03-01] MEDS: Normal Saline 1,000 ML 500 ML IV (01:15)
[2019-03-01] MEDS: FAMOTIDINE 20 MG/50 ML BAG 200 MG IVPB ×2 (05:57→17:51)
[2019-03-01 06:45] LABS: Anion Gap 10.7 mmol/L (3-11); BUN 6 mg/dL (7-18); CO2 20.3 mmol/L (21.0-32.0); CREATININE 0.68 mg/dL (0.55-1.02); Calcium 7.8 mg/dL (8.5-10.1); Chloride 109 mmol/L (98-107); Glucose 119 mg/dL (70-100); Magnesium 1.7 mg/dL (1.8-2.4); Potassium 3.6 mmol/L (3.5-5.1); Sodium 140 mmol/L (136-145)
[2019-03-01 06:47] LABS: Abs Immature Grans 0.08 k/cumm (0.0-0.09); Absolute Basophil Count 0.04 k/cumm (0.0-0.2); Absolute Lymphocyte Count 1.46 k/cumm (1.2-3.4); Absolute Monocyte Count 1.18 k/cumm (0.11-0.7); Basophils % 0.3; Eosinophils % 1.7; HCT 32.5 % (36.0-46.0); HGB 10.9 g/dL (12.0-15.5); Immature Grans % 0.6; Lymphocytes % 10.2; Mean Corp. HGB Concentration 33.5 g/dL (32.0-36.0); Mean Corpuscular Hemoglobin 33.7 pg (27.0-33.0); Mean Corpuscular Volume 100.6 fL (80-95); Mean Platelet Volume 8.8 fL (8.0-11.0); Monocytes % 8.2; PHOSPHORUS 4.5 mg/dL (2.6-4.7); Platelet Count 324 x1000/uL (130-400); RBC 3.23 m/cumm (4.00-5.20); RBC Distribution Width 12.9 % (11.7-14.6); White Blood Cell Count 14.36 k/cumm (4.4-10.8)
[2019-03-01 06:52] LABS: Absolute Eosinophil Count 0.24 k/cumm (0.0-0.7); Absolute Neutrophil Count 11.34 k/cumm (1.2-6.7)
--- NOTE | 2019-03-01 07:09 | PGE_ITS ---
Date of Service Date of service: 03/01/19 Time of Service: 06:59 Assessment and Plan (1) S/P exploratory laparotomy: Current visit: Yes Status: Acute POD #1 S/P Exploratory Laparotomy with sigmoid resection and splenic flexure mobilization, Colostomy creation and Bilateral Ooprectectomy and Salpingectomy. Ms. Manzo is did well overnight with decreased urine output with ~25cc/hr fol lowing LR and LR boluses. Pain is currently well controlled with the epidural and she did not require PRN medications overnight. Currently on Norepi for hypotension overnight with improved BPs. Pathology pending. AM Labs pending- Will replace electrolytes as needed. PAIN- Epidural in place with good effect. PRN medications also available DIET- NPO. May have ice chips, hard candies and gum. Will start TPN today. FLUIDS- Continue IV LR. Also ordered Bolus of 1L LR CENTRAL LINE- IJ in place. Discussed with nsg re: changing dressing - Gomez in place. Continue to monitor I&Os. COLOSTOMY- Ostomy is pink, with minimal output of serous/bloody output (most likely from yesterday) NG Tube- D/C'd ACTIVITY- Encouraged getting out of bed and sitting in the chair as tolerated. PT and OT consult ordered. DVT prophylaxsis- On Lovenox. Continue use of compression stockings and SCDs. GI prophylaxis- On Famotidine. Also ordered PRN Zofran and Mylanta (2) Hypothyroidism: Current visit: No Status: Acute Started IV levothyroxine yesterday. Will continue to monitor TSH. Qualifiers: Hypothyroidism type: acquired Qualified Code(s): E03.9 - Hypothyroidism, unspecified (3) Essential hypertension: Current visit: Yes Status: Acute Subjective Interval history since last seen: Mrs. Manzo reports that she is feeling pretty well this morning. With the most discomfort she is currently feeling is secondary to the NG tube causing her throat to be sore. She denies feeling any gas, nausea or vomiting. She states she was able to get some sleep last night. Exam Const General: cooperative and comfortable Orientation: alert and oriented x3 Resp Effort & Inspection: normal respiratory effort, no audible wheezes and no cough GI Inspection: distended Palpation: soft, no guarding, tender (Mild generalized tenderness) and ascites Auscultation: absent bowel sounds Extrem Right upper extremity: edema (Mild-R hand/arm > L ) Left lower extremity: edema (Darrin. Feet) Details: 2+ Objective Objective Clinical Data: Abnormal lab results 02/28/19 02/28/19 03/01/19 Range/Units 08:25 08:25 06:20 WBC (4.4-10.8) k/cumm RBC 3.55 L (4.00-5.20) m/cumm Hgb 11.8 L (12.0-15.5) g/dL Hct 35.0 L (36.0-46.0) % MCV 98.6 H (80-95) fL MCH 33.2 H (27.0-33.0) pg Absolute Neutrophils (1.2-6.7) k/cumm Absolute Lymphocytes 1.12 L (1.2-3.4) k/cumm Absolute Monocytes 0.75 H (0.11-0.7) k/cumm Chloride 109 H (98-107) mmol/L Carbon Dioxide 20.3 L (21.0-32.0) mmol/L Anion Gap 13.5 H (3-11) mmol/L BUN 4 L 6 L (7-18) mg/dL Glucose 68 L 119 H (70-100) mg/dL Calcium 7.8 L (8.5-10.1) mg/dL Magnesium 1.6 L 1.7 L (1.8-2.4) mg/dL C-Reactive Protein 11.70 H (0.0-0.3) mg/dL Total Protein 4.6 L (6.4-8.2) g/dL Albumin 2.2 L (3.4-5.0) g/dL TSH 5.32 H (0.358-3.74) uIU/mL 03/01/19 Range/Units 06:20 WBC 14.36 H D (4.4-10.8) k/cumm RBC 3.23 L (4.00-5.20) m/cumm Hgb 10.9 L (12.0-15.5) g/dL Hct 32.5 L (36.0-46.0) % MCV 100.6 H (80-95) fL MCH 33.7 H (27.0-33.0) pg Absolute Neutrophils 11.34 H (1.2-6.7) k/cumm Absolute Lymphocytes (1.2-3.4) k/cumm Absolute Monocytes 1.18 H (0.11-0.7) k/cumm Chloride (98-107) mmol/L Carbon Dioxide (21.0-32.0) mmol/L Anion Gap (3-11) mmol/L BUN (7-18) mg/dL Glucose (70-100) mg/dL Calcium (8.5-10.1) mg/dL Magnesium (1.8-2.4) mg/dL C-Reactive Protein (0.0-0.3) mg/dL Total Protein (6.4-8.2) g/dL Albumin (3.4-5.0) g/dL TSH (0.358-3.74) uIU/mL Vital Signs Temperature 37.7 C H 03/01/19 05:56 Temperature Source Temporal Artery Scan 03/01/19 03:00 Pulse 90 03/01/19 06:31 Pulse Rhythm Regular 02/28/19 08:34 Pulse 96 H 03/01/19 06:31 Respiratory Rate 18 03/01/19 06:31 Respiratory Effort Non-Labored 03/01/19 03:00 Respiratory Depth Normal 03/01/19 03:00 Respiratory Pattern Normal 03/01/19 03:00 Blood Pressure 128/68 03/01/19 06:31 Blood Pressure Mean 83 03/01/19 06:31 Blood Pressure Position Left Lateral 03/01/19 03:00 Pulse Oximetry 99 03/01/19 06:31 Respiratory End-tidal CO2 29 02/28/19 15:40 Oxygen Delivery Method Nasal Cannula 03/01/19 04:30 Oxygen Flow Rate 1 03/01/19 04:30 Pain Level 0 03/01/19 04:30 Comment 02/27/19 11:51 Intake & Output 02/28/19 02/28/19 03/01/19 06:59 18:59 06:59 Intake Total 1280 / 2855.000 1971.750 / 3255.000 1283.250 / 3255.000 Output Total 406 / 407 300 / 830 530 / 830 Balance 874 / 2448.000 1671.750 / 2425.000 753.250 / 2425.000 Weight 72.1 kg 77.3 kg Intake: IV 320 / 0401.796 5665.750 / 3225.000 1253.250 / 3225.000 Oral 950 / 1310 Injectate Left Lateral Abdomen Output: Gastric Drainage Left Nare Drainage Left Lateral Abdomen Urine 400 / 400 100 / 440 340 / 440 Stool 100 / 260 160 / 260 Estimated Blood Loss 100 / 100 Other: Urine Color Pale Yellow Yellow Yellow Urine Appearance Clear Clear Clear Urine Odor Normal Comment SG 1.030 Pt has averaged apx 25.75 cc/hr. Dr Tapia informed at this time. Stool Occult Blood Positive Stool Size Small Stool Characteristics Liquid Emesis Description None Gastric Occult Blood Left Nare Negative Voiding Methods Toilet Laboratory Results WBC 14.36 k/cumm (4.4-10.8) H D 03/01/19 06:20 RBC 3.23 m/cumm (4.00-5.20) L 03/01/19 06:20 Hgb 10.9 g/dL (12.0-15.5) L 03/01/19 06:20 Hct 32.5 % (36.0-46.0) L 03/01/19 06:20 MCV 100.6 fL (80-95) H 03/01/19 06:20 MCH 33.7 pg (27.0-33.0) H 03/01/19 06:20 MCHC 33.5 g/dL (32.0-36.0) 03/01/19 06:20 RDW 12.9 % (11.7-14.6) 03/01/19 06:20 Plt Count 324 x1000/uL (130-400) 03/01/19 06:20 MPV 8.8 fL (8.0-11.0) 03/01/19 06:20 Immature Gran % 0.6 03/01/19 06:20 Neutrophils % 79.0 03/01/19 06:20 Lymphocytes % 10.2 03/01/19 06:20 Monocytes % 8.2 03/01/19 06:20 Eosinophils % 1.7 03/01/19 06:20 Basophils % 0.3 03/01/19 06:20 Absolute Neutrophils 11.34 k/cumm (1.2-6.7) H 03/01/19 06:20 Absolute Lymphocytes 1.46 k/cumm (1.2-3.4) 03/01/19 06:20 Absolute Monocytes 1.18 k/cumm (0.11-0.7) H 03/01/19 06:20 Absolute Eosinophils 0.24 k/cumm (0.0-0.7) 03/01/19 06:20 Absolute Basophils 0.04 k/cumm (0.0-0.2) 03/01/19 06:20 PT 9.9 sec (9.3-11.0) 02/22/19 07:43 INR 1.0 (0.9-1.1) 02/22/19 07:43 APTT 30.3 sec (21.0-31.4) 02/22/19 07:43 Sodium 140 mmol/L (136-145) 03/01/19 06:20 Potassium 3.6 mmol/L (3.5-5.1) 03/01/19 06:20 Chloride 109 mmol/L (98-107) H 03/01/19 06:20 Carbon Dioxide 20.3 mmol/L (21.0-32.0) L 03/01/19 06:20 Anion Gap 10.7 mmol/L (3-11) 03/01/19 06:20 BUN 6 mg/dL (7-18) L 03/01/19 06:20 Creatinine 0.68 mg/dL (0.55-1.02) 03/01/19 06:20 Estimated GFR/1.73 m2 >= 60.00 (mL/min/1.73m2) 03/01/19 06:20 Glucose 119 mg/dL (70-100) H 03/01/19 06:20 Calcium 7.8 mg/dL (8.5-10.1) L 03/01/19 06:20 Phosphorus 4.5 mg/dL (2.6-4.7) 03/01/19 06:20 Magnesium 1.7 mg/dL (1.8-2.4) L 03/01/19 06:20 Total Bilirubin 0.2 mg/dL (0.2-1.0) 02/28/19 08:25 AST 18 U/L (15-37) 02/28/19 08:25 ALT 18 U/L (12-78) 02/28/19 08:25 Alkaline Phosphatase 54 U/L (46-116) 02/28/19 08:25 C-Reactive Protein 11.70 mg/dL (0.0-0.3) H 03/01/19 06:20 C-React Prot High Sens 9.17 mg/L 02/24/19 06:45 Total Protein 4.6 g/dL (6.4-8.2) L 02/28/19 08:25 Albumin 2.2 g/dL (3.4-5.0) L 02/28/19 08:25 Lipase 67 U/L (73-393) L 02/22/19 07:43 TSH 5.32 uIU/mL (0.358-3.74) H 02/28/19 08:25 Patient ABO/Rh O Positive 02/28/19 08:25 Antibody Screen Negative 02/28/19 08:25
[2019-03-01] MEDS: Lactated Ringers 1,000 ML 1000 ML IV ×2 (07:43→15:16)
[2019-03-01] MEDS: Levothyroxine 100 MCG VIAL 75 MCG IVP (08:30)
[2019-03-01] MEDS: FentaNYL/ROPIvacaine 2 mcg/ml and 0.1% 200 ML CADD Cassette EP (09:12)
--- NOTE | 2019-03-01 09:43 | PDOC.CMPRO ---
- If Service Date Differs Date of service: 03/01/19 Time of Service: 09:43 Care Management Progress Note S/O: Idalia is alert and conversing well. She states she was able to ambulate a few steps to the chair today. She states her legs felt like jelly. She is receiving PT, she continues to have the epidural in place and is having minimal discomfort. She understands that she has a new stoma/ostomy and will need to learn how to care for it while she is here. She would like to return home when she is medically ready with home health services. CM did review options for discharge planning including short term rehab here at [facility] in the SB1 program. Idalia is post op day 1. She states she will be able to assess better once she can move around and has a few less lines. Idalia states her thoughts remain positive. She states although she has been through a lot over the past year she is hopeful this will be a new start for her with less discomfort. CM offered support, active listening and reviewed discharge planning. A: Idalia is a 68 year old female admitted with intestinal abscess which she has been treated as an outpatient for the past four months with oral antibiotics and close follow up. She is now post op day 0 for the following procedures: 1. Exploratory Laparotomy with sigmoid resection and splenic flexure mobilization 2. Colostomy creation 3. Bilateral slapingoopherectomy 4. colon polyp removal P: Idalia transition to ICU level of care today post op day 1. Idalia will return home with new home health orders for nursing, and wound management including new(stoma) ostomy care when she is medically ready for discharge. Idalia may need a short SB1 stay related to prolonged hospitalization and need for PT and OT. She has family that will also provide assistance and support at home. Idalia will need education r/t wound management, stoma and ostomy care she should also identify a support person who can learn the care as well. CM will revisit this with the patient once she is more alert. CM to continue to provide support discharge planing and disposition.
--- NOTE | 2019-03-01 10:14 | IN_ITS ---
Date of service: 03/01/19 Time of Service: 09:30 PT Notes Inpatient Physical Therapy Evaluation Date: 03/01/19 Referring Doctor: Eliz Sawyer PT Orders: PT CONSULT: Please evaluate and treat Precautions: fall, standard Patient Profile/Admitting Diagnosis: Patient admitted for management of intestinal abcess, s/p sigmoid resection with colostomy performed 02/28/19. PMHX: Abdominal discomfort, generalized (Acute) Psoriasis (Acute) Hypothyroidism (Acute 07/13/13) Essential hypertension (Acute 07/13/13) Diverticulosis of large intestine without hemorrhage (Acute 10/17/15) DCIS (ductal carcinoma in situ) of breast (Acute 06/29/12) Arthritis (Acute 03/23/16) Impetigo (Acute) Breast cancer Diverticulitis Hypertension Hypothyroidism Psoriasis Social History/Home Situation: Patient lives alone in a single level home with 4 [place]. She typically ambulates independently, stating she walks 45 minutes per day. She also reports that she had been ambulating in the halls with nursing without AD prior to surgery yesterday. She is recently retired from [employer], and has supportive family in the area. Equipment Owned/DME: none Subjective: Idalia states that she's feeling okay. She states that her abdominal pain is well controlled. She's anxious to get up to the chair. Objective: General Observation: Resting in bed, with central line on the right, epidural in place, Gomez catheter, pulse oximetry, BP cuff. Mental Status: A&Ox3 Pain: well managed Vitals: Seated BP 120/64. Standing 100/60. ROM: Right Upper Extremity: WFL Left Upper Extremity: WFL Right Lower Extremity: Patient tolerates hip flexion to 100 degrees. Knee motion WFL Left Lower Extremity: Patient tolerates hip flexion to 100 degrees. Knee motion WFL Strength: Right Upper Extremity: Shoulder flexion, elbow flexion and extension all 3/5 or greater. Left Upper Extremity: Shoulder flexion, elbow flexion and extension all 3/5 or greater. Right Lower Extremity: Hip flexion 3/5 or greater. Quads 3/5 or greater. Ankle DF 3/5 or greater. Left Lower Extremity: Hip flexion 3/5 or greater. Quads 3/5 or greater. Ankle DF 3/5 or greater. Bed Mobility/Transfers: supine-sit: min A for lines with HOB at 45 degrees sit-stand: CGx2 stand-sit: CGx2 bed-chair: CGx2 with FWW Gait: Patient ambulates 3' with FWW with CGA x 2, and assist for lines. Balance: Static Sitting: good Dynamic Sitting: Static Standing: fair Dynamic Standing: fair Special Tests: Mobility Limitations Standardized Measure [facility] AM-PAC 6 clicks Basic Mobility Inpatient Short Form: Raw Score: 18 CMS Score: 47% Informed Consent/Education: Patient instructed in purpose of PT consult and plan of care. Assessment: Patient is a 68 year old female referred to physical therapy services with the diagnosis of eval and treat s/p abdominal surgery. Patient presents with clinical signs and symptoms consistent with diagnosis. He currently demonstrates the following impairment level findings: 1. Decreased LE strength 2. Abdominal discomfort with mobility 3. decreased activity tolerance Impairments are contributing to the following functional limitations: 1. Unable to independently perform household ambulation 2. Unable to manage stairs 3. Unable to independently perform bed mobility Patient is assessed as High 48356 complexity based on the following: History: Active and independent 68 year old female 1 day s/p sigmoid resection with colectomy. COmplicating medical factors as noted above. Examination: functional limitations as noted above. Presentation: unstable Decision Making: high complexity Goals: Goals X1 week 1. Supine-Sit : supervision 2. Sit-Supine : supervision 3. Sit-Stand : supervision 4. Stand-Sit : supervision 5. Bed-Chair : supervision with FWW 6. Chair-Bed :supervision with FWW 7. Gait : supervision with FWW x 50 8. Stairs : ascend and descend 4 steps with bilat rails and supervision Plan of Care/Treatment Plan: 1-2x/day, 7 days/week x 1 week. Plan of care has been reviewed with the [employer] providing the service under Physical Therapy direction. Initiate Physical Therapy intervention for strengthening, bed mobility, transfers, gait, stairs, balance training, use of assistive device. DISCHARGE RECOMMENDATIONS: home with FWW. Patient will likely require ongoing PT via HH vs. outpatient services upon discharge TREATMENT CODE/TIME: 9:30-10:00 ([id number]) Ratna Mckeon, PT, DPT [facility]
--- NOTE | 2019-03-01 11:49 | OT.INIE ---
Occupational Therapy Notes Inpatient Occupational Therapy Evaluation Date: 03/01/19 Referring Doctor: ROSA Gerard OT Orders: Eval and Treat Precautions: NPO, Fall, Standard PATIENT PROFILE/ADMITTING DIAGNOSIS: Pt is a 68 year old female who was admitted through the ER on 02/12/19 for diverticulitis of large intestine with a sigmoid abscess. Pt had surgery on 02/28/19 for colostomy creation, (B) slapingoophrectomy and colon polyp removal. Past Medical History: Abdominal discomfort, generalized (Acute) Psoriasis (Acute) Hypothyroidism (Acute 07/13/13) Essential hypertension (Acute 07/13/13) Diverticulosis of large intestine without hemorrhage (Acute 10/17/15) DCIS (ductal carcinoma in situ) of breast (Acute 06/29/12) Arthritis (Acute 03/23/16) Impetigo (Acute) Breast cancer Diverticulitis Hypertension Hypothyroidism Psoriasis Surgical History Breast, Lumpectomy Breast, Mastectomy Colonoscopy - IV Sedation Extraction of cataract Social History/Home Situation: Pt lives alone in a private home in [place]. She has 3 steps to enter if she goes through her garage and 4 steps to go through the front of her home. She has a one story home with a finished basement which she does not have to go down into. She has two bathrooms, one with a tub/shower combination and one with a walk in shower. She does not have a shower bench although OT will continue to assess the need for this. Pt is totally (I) at home with all ADLs/IADLs. She is (I) with community mobility. She has a son and daughter. She notes that she retired early to take care of her mother and brother who have recently passed. She is very (I) and walks 45 minutes a day with a neighbor. Pt takes pride in her (I) and is highly motivated to return to her premorbid level of function. Equipment owned/DME: None SUBJECTIVE: Pt was sitting in chair when OT arrived. She was agreeable to OT session. OBJECTIVE: General Observation: Epidural, IV (L), central line in place, Gomez, Ostomy, NG tube recently d/c?d. Mental Status: A&Ox3 Pain: no c/o pain. ROM: RUE AROM WNL L UE AROM WNL STRENGTH: RUE 3+/5 throughout globally LUE 3+/5 throughout globally FUNCTIONAL MOBILITY/ADLS: Pt denies ADLs at today?s session indicating that she would like to hold on this as she is tired. BALANCE: Static sitting- Normal Dynamic Sitting- Normal Static Standing- NT Dynamic Standing-NT SPECIAL TESTS: Daily Activity Limitations Standardized Measure [facility] AM -PAC ?6 clicks? Daily Activity Inpatient Short Form: Raw score: 15 Standardized score: 34.69 CMS score: 56.46% INFORMED CONSENT/EDUCATION: Pt instructed in purpose of OT Consult and plan of care. ASSESSMENT: Patient is a 68-year-old female referred to occupational therapy services with diagnosis of diverticulitis of large intestine with a sigmoid abscess. Pt had surgery on 02/28/19 for colostomy creation, (B) slapingoophrectomy and colon polyp removal. Patient presents with clinical signs and symptoms consistent with dx, as demonstrated by the following impairment level findings Impairments are contributing to the following functional limitations: Patient is assessed as a Moderate 93126 complexity based on the following: History: See Above Examination: See Above Presentation: Moderate complexity Decision Making: AMPAC score 15, CMS score 56.46% GOALS Goals x1 week 1. Transfers LRD, SBA 2. Dressing- sitting in chair (I) UE/LE 3. Bathing-sitting in chair (I) 4. Toileting- on commode (I) 5. Eating- (I) sitting position 6. Grooming- Standing at sink with LRD (I) brushing teeth and hair PLAN OF CARE/TREATMENT PLAN: 1x/day, 5 days/ week x 1week Initiate Occupational Therapy Services for bathing, dressing, grooming, toileting, eating, transfer training. DISCHARGE RECOMMENDATIONS- At this time OT recommends that pt return home with HH services to assess patients ADLs in the home setting. DME needs are unable to be determined at this time and OT will continue to assess. TREATMENT TIME/MINUTES/CODES- 34936, 20 minutes (11:15) Dolores Savage OTR/[facility]
--- NOTE | 2019-03-01 13:00 | PT.INTREAT ---
Date of service: 03/01/19 Time of Service: 13:00 PT Notes Inpatient Physical Therapy Treatment Note [facility] Date: 03/01/19 PRECAUTIONS: Fall SUBJECTIVE: Idalia states that she is feeling somewhat tired after sitting up in her chair for several hours. OBJECTIVE: PAIN: Patient c/o minimal discomfort in abdomen with [id number] transfer BED MOBILITY/TRANSFERS Sit-supine: Min A with HOB flat Sit-stand: SBA Stand-sit: SBA Chair-bed: SBA GAIT Assistive Device: FWW Weight bearing: Full Assist: CGA Distance: 3' Deviation: Assist for IV pole/lines THEREX: Patient completed a LE strengthening and stabilization program in a supine position, as per flow sheet. ASSESSMENT: Patient tolerated session with minimal c/o abdominal discomfort with sit-supine transfer. Patient would benefit from continued global strengthening as well as transfer and gait training for improved ability to perform daily functional tasks. PLAN: Continue with PT's POC TREATMENT CODE/TIME: 25 minutes; [id number], [id number]
--- NOTE | 2019-03-01 13:03 | PTTR_ITS ---
Date of service: 03/01/19 Time of Service: 13:00 PT Notes Inpatient Physical Therapy Treatment Note [facility] Date: 03/01/19 PRECAUTIONS: Fall SUBJECTIVE: Idalia states that she is feeling somewhat tired after sitting up in her chair for several hours. OBJECTIVE: PAIN: Patient c/o minimal discomfort in abdomen with [id number] transfer BED MOBILITY/TRANSFERS Sit-supine: Min A with HOB flat Sit-stand: SBA Stand-sit: SBA Chair-bed: SBA GAIT Assistive Device: FWW Weight bearing: Full Assist: CGA Distance: 3' Deviation: Assist for IV pole/lines THEREX: Patient completed a LE strengthening and stabilization program in a supine position, as per flow sheet. ASSESSMENT: Patient tolerated session with minimal c/o abdominal discomfort with sit-supine transfer. Patient would benefit from continued global strengthening as well as transfer and gait training for improved ability to perform daily functional tasks. PLAN: Continue with PT's POC TREATMENT CODE/TIME: 25 minutes; [id number], [id number]
--- NOTE | 2019-03-01 14:56 | CHAPLAIN ---
I had a brief visit with Ruthann this morning. I left when her daughter in law arrived. I checked in this afternoon, but she was sleeping. I will visit tomorrow. Fr. Clay from [facility] visited Ruthann today.
--- NOTE | 2019-03-01 15:56 | PDOC.ANES ---
Anesthesia Note Report Anesthesia Note: Pain level 0, weaning off of norepinephrine, receiving fluid bolus for decreased urine output. Was up to chair with pivot today. Plan to maintain epidural infusion at current rate, re-evaulate in am and start decreasing tomorrow with plans for possible discontinuation of epidural on WednesdayMarch 03. This plan discussed with Dr. Tapia.
[2019-03-01] MEDS: Furosemide 20 MG/2 ML VIAL IVP (17:50)
[2019-03-01] MEDS: MAGNESIUM SULFATE 4 GM/100 ML BAG IVPB (18:05)
--- NOTE | 2019-03-01 19:20 | W.PM.PROGNOT ---
Date of Service Date of service: 03/01/19 Time of Service: 19:20 Assessment and Plan (1) S/P exploratory laparotomy: Current visit: Yes Status: Acute A\\ Doing well for POD #1 P\\ Diet: start clears Nutrition: continue TPN until she is eating enough calories Get nutrition consult Fluids: D/C maintenance fluids Hypotension: resolved. Continue to observe Activity: PT/OT ordered and patient is motivated DVT prophilaxis: continue with LOvenox Antibiotics: Recheck labs in am. Will D/V antibiotics after tonight. Slight increase in WBC count is most likely reactive If she does well overnight and doesn't need the halina then will transfer to the floor. Subjective Interval history since last seen: Idalia is doing well this evening. She has gotten up today and has taken a few steps. Her urine output has increased since I gave her the LAsix. Norepinephrine has been shut down and BP is holding. Exam Resp Effort & Inspection: normal respiratory effort Auscultation: clear to auscultation bilaterally and diminished lung sounds Cardio Rate: regular rate Rhythm: regular rhythm Heart Sounds: gallop, murmur and rub GI Palpation: soft and tender (mild tenderness along incison) Auscultation: normal bowel sounds Other: Ostomy is pink. There is air in the bag and minimal serosanguinous discharge Objective Objective Clinical Data: Abnormal lab results 03/01/19 03/01/19 Range/Units 06:20 06:20 WBC 14.36 H D (4.4-10.8) k/cumm RBC 3.23 L (4.00-5.20) m/cumm Hgb 10.9 L (12.0-15.5) g/dL Hct 32.5 L (36.0-46.0) % MCV 100.6 H (80-95) fL MCH 33.7 H (27.0-33.0) pg Absolute Neutrophils 11.34 H (1.2-6.7) k/cumm Absolute Monocytes 1.18 H (0.11-0.7) k/cumm Chloride 109 H (98-107) mmol/L Carbon Dioxide 20.3 L (21.0-32.0) mmol/L BUN 6 L (7-18) mg/dL Glucose 119 H (70-100) mg/dL Calcium 7.8 L (8.5-10.1) mg/dL Magnesium 1.7 L (1.8-2.4) mg/dL C-Reactive Protein 11.70 H (0.0-0.3) mg/dL Vital Signs Temperature 97.5 F L 03/01/19 16:00 Temperature Source Temporal Artery Scan 03/01/19 16:00 Pulse 78 03/01/19 18:38 Pulse Rhythm Regular 02/28/19 08:34 Pulse 81 03/01/19 18:38 Respiratory Rate 17 03/01/19 18:38 Respiratory Effort 03/01/19 16:00 Respiratory Depth Normal 03/01/19 16:00 Respiratory Pattern Normal 03/01/19 16:00 Blood Pressure 111/47 L 03/01/19 18:38 Blood Pressure Mean 61 03/01/19 18:38 Blood Pressure Position Supine 03/01/19 16:00 Pulse Oximetry 95 03/01/19 18:38 Respiratory End-tidal CO2 29 02/28/19 15:40 Oxygen Delivery Method Room Air 03/01/19 16:00 Oxygen Flow Rate 0 03/01/19 16:00 Pain Level 0 03/01/19 16:30 Comment 02/27/19 11:51 Intake & Output 02/28/19 03/01/19 03/01/19 23:59 11:59 23:59 Intake Total 2649.250 / 3174.250 3930.792 / 7839.895 3909.103 / 7839.895 Output Total 565 / 968 265 / 445 180 / 445 Balance 2084.250 / 2206.250 3665.792 / 7394.895 3729.103 / 7394.895 Weight 158 lb 15.253 oz 170 lb 6.677 oz Intake: IV 2639.250 / 2809.250 3910.792 / 7819.895 3909.103 / 7819.895 Oral 10 Output: Gastric Drainage Left Nare Urine 255 / 655 185 / 335 150 / 335 Stool 200 / 200 60 / 90 30 / 90 Estimated Blood Loss 100 / 100 Other: Urine Color Yellow Yellow Urine Appearance Clear Clear Urine Odor Normal Comment Indwelling rosa draining clear yellow urine PH 6, SG 1.030, 80 Ketones, 3+ Blood. 1999 to 2199, only 15 cc urine output. RN called Dr Motley to advise her or reduced urine output and soft pressures with 5mcg Norepinephrine, MAP has bee above 60 with occ MAP of 58. Md ordered to increase the LR from 125 cc/hr to 150cc/hr and to give a 1 lite NS bolus over the next hour. RN advised MD that the Pt's BS remain CTA in all thompson with no adventitious BS auscultated. rosa cath in place draining small amount clear yellow urine. rosa in place draining clear yellow urine. Stool Occult Blood Positive Positive Positive Emesis Description None Gastric Occult Blood Left Nare Negative Negative Voiding Methods Toilet Laboratory Results WBC 14.36 k/cumm (4.4-10.8) H D 03/01/19 06:20 RBC 3.23 m/cumm (4.00-5.20) L 03/01/19 06:20 Hgb 10.9 g/dL (12.0-15.5) L 03/01/19 06:20 Hct 32.5 % (36.0-46.0) L 03/01/19 06:20 MCV 100.6 fL (80-95) H 03/01/19 06:20 MCH 33.7 pg (27.0-33.0) H 03/01/19 06:20 MCHC 33.5 g/dL (32.0-36.0) 03/01/19 06:20 RDW 12.9 % (11.7-14.6) 03/01/19 06:20 Plt Count 324 x1000/uL (130-400) 03/01/19 06:20 MPV 8.8 fL (8.0-11.0) 03/01/19 06:20 Immature Gran % 0.6 03/01/19 06:20 Neutrophils % 79.0 03/01/19 06:20 Lymphocytes % 10.2 03/01/19 06:20 Monocytes % 8.2 03/01/19 06:20 Eosinophils % 1.7 03/01/19 06:20 Basophils % 0.3 03/01/19 06:20 Absolute Neutrophils 11.34 k/cumm (1.2-6.7) H 03/01/19 06:20 Absolute Lymphocytes 1.46 k/cumm (1.2-3.4) 03/01/19 06:20 Absolute Monocytes 1.18 k/cumm (0.11-0.7) H 03/01/19 06:20 Absolute Eosinophils 0.24 k/cumm (0.0-0.7) 03/01/19 06:20 Absolute Basophils 0.04 k/cumm (0.0-0.2) 03/01/19 06:20 PT 9.9 sec (9.3-11.0) 02/22/19 07:43 INR 1.0 (0.9-1.1) 02/22/19 07:43 APTT 30.3 sec (21.0-31.4) 02/22/19 07:43 Sodium 140 mmol/L (136-145) 03/01/19 06:20 Potassium 3.6 mmol/L (3.5-5.1) 03/01/19 06:20 Chloride 109 mmol/L (98-107) H 03/01/19 06:20 Carbon Dioxide 20.3 mmol/L (21.0-32.0) L 03/01/19 06:20 Anion Gap 10.7 mmol/L (3-11) 03/01/19 06:20 BUN 6 mg/dL (7-18) L 03/01/19 06:20 Creatinine 0.68 mg/dL (0.55-1.02) 03/01/19 06:20 Estimated GFR/1.73 m2 >= 60.00 (mL/min/1.73m2) 03/01/19 06:20 Glucose 119 mg/dL (70-100) H 03/01/19 06:20 Calcium 7.8 mg/dL (8.5-10.1) L 03/01/19 06:20 Phosphorus 4.5 mg/dL (2.6-4.7) 03/01/19 06:20 Magnesium 1.7 mg/dL (1.8-2.4) L 03/01/19 06:20 Total Bilirubin 0.2 mg/dL (0.2-1.0) 02/28/19 08:25 AST 18 U/L (15-37) 02/28/19 08:25 ALT 18 U/L (12-78) 02/28/19 08:25 Alkaline Phosphatase 54 U/L (46-116) 02/28/19 08:25 C-Reactive Protein 11.70 mg/dL (0.0-0.3) H 03/01/19 06:20 C-React Prot High Sens 9.17 mg/L 02/24/19 06:45 Total Protein 4.6 g/dL (6.4-8.2) L 02/28/19 08:25 Albumin 2.2 g/dL (3.4-5.0) L 02/28/19 08:25 Lipase 67 U/L (73-393) L 02/22/19 07:43 TSH 5.32 uIU/mL (0.358-3.74) H 02/28/19 08:25 Patient ABO/Rh O Positive 02/28/19 08:25 Antibody Screen Negative 02/28/19 08:25
[2019-03-01] MEDS: Enoxaparin 40 MG/0.4 ML SYR SC (20:03)
[2019-03-02] VITALS (68 sets, daily range): BP systolic 92–143; BP diastolic 19–89; PULSE 75–97; RESP 13–26; TEMP 36.2–37.6; O2SAT 2–100
[2019-03-02] MEDS: Insulin Aspart 300 UNITS/3 ML PEN SC (00:08)
[2019-03-02] MEDS: FentaNYL/ROPIvacaine 2 mcg/ml and 0.1% 200 ML CADD Cassette EP (00:37)
[2019-03-02] MEDS: Ketorolac 15 MG/ML VIAL IVP ×3 (05:10→17:48)
[2019-03-02] MEDS: PIPERACILLIN/TAZO 3.375 GM in Normal Saline 50 ML IVPB ×3 (05:17→18:10)
[2019-03-02] MEDS: FAMOTIDINE 20 MG/50 ML BAG 200 MG IVPB ×2 (05:17→17:55)
[2019-03-02] MEDS: Normal Saline Flush 10 ML SYR IVP ×3 (06:01→14:51)
--- NOTE | 2019-03-02 06:21 | W.PM.PROGNOT ---
Date of Service Date of service: 03/02/19 Time of Service: 06:21 Assessment and Plan (1) S/P exploratory laparotomy: Current visit: Yes Status: Acute A\\ POD #2 s/p ex=lap with sigmoid resection and ostomy. Bilateral salpingoopherectomy P\\ Activity: Continue PT/OT and ambulation Diet: Advance as tolerated to a high protein soft, mild diet Nutrition: continue TPN until eating the calories she needs DVT prophilaxis: Continue with SCD's and Lovenox Antibiotics: Will stop today Ostomy care: will have nurses [facility] to teach ostomy care. Will need Home health to help on discharge Disposition: HOme once stable. Will need Home Health (2) Hypomagnesemia: Current visit: Yes Status: Acute A\\ Replaced yesterday. Labs pending this am P\\ Replace as needed (3) Hypothyroidism: Current visit: No Status: Acute A\\ On IV Levothyroxine P\\ Switch to po today Qualifiers: Hypothyroidism type: acquired Qualified Code(s): E03.9 - Hypothyroidism, unspecified (4) Essential hypertension: Current visit: Yes Status: Acute A\\ Still relativelly hypotensive P\\ Restart home meds once her BP starts to go up (5) 2+ pitting edema: Current visit: Yes Status: Acute A\\ dependent pitiing edema P\\ LAsix BID to mobilize the fluid Subjective Interval history since last seen: Had a good night. No complaints. Feels comfortable and her pain is controlled. Was able to tolerate the clear liquid diet last night. HAs some liquid stool output. Exam Resp Effort & Inspection: normal respiratory effort Auscultation: clear to auscultation bilaterally and breath sounds absent (bilateral bases) Cardio Rate: regular rate Rhythm: regular rhythm GI Inspection: incision (c/d/i) Palpation: soft and tender (mild with deep palpation around the wound) Auscultation: normal bowel sounds Other: Ostomy is pink Extrem Other: +2 Pitting edema of bilateral thighs, hips and buttocks +2 pitting edema of Right hand Objective Objective Clinical Data: Abnormal lab results 03/01/19 03/01/19 Range/Units 06:20 06:20 WBC 14.36 H D (4.4-10.8) k/cumm RBC 3.23 L (4.00-5.20) m/cumm Hgb 10.9 L (12.0-15.5) g/dL Hct 32.5 L (36.0-46.0) % MCV 100.6 H (80-95) fL MCH 33.7 H (27.0-33.0) pg Absolute Neutrophils 11.34 H (1.2-6.7) k/cumm Absolute Monocytes 1.18 H (0.11-0.7) k/cumm Chloride 109 H (98-107) mmol/L Carbon Dioxide 20.3 L (21.0-32.0) mmol/L BUN 6 L (7-18) mg/dL Glucose 119 H (70-100) mg/dL Calcium 7.8 L (8.5-10.1) mg/dL Magnesium 1.7 L (1.8-2.4) mg/dL C-Reactive Protein 11.70 H (0.0-0.3) mg/dL Vital Signs Temperature 99.0 F 03/02/19 03:00 Temperature Source Temporal Artery Scan 03/02/19 03:00 Pulse 87 03/02/19 03:00 Pulse Rhythm Regular 02/28/19 08:34 Pulse 81 03/01/19 18:38 Respiratory Rate 18 03/02/19 03:00 Respiratory Effort 03/02/19 03:00 Respiratory Depth Normal 03/02/19 03:00 Respiratory Pattern Normal 03/02/19 03:00 Blood Pressure 104/52 L 03/02/19 03:00 Blood Pressure Mean 69 03/02/19 03:00 Blood Pressure Position Sitting 03/02/19 03:00 Pulse Oximetry 97 03/02/19 03:00 Respiratory End-tidal CO2 29 02/28/19 15:40 Oxygen Delivery Method Room Air 03/02/19 03:00 Oxygen Flow Rate 0 03/02/19 03:00 Fraction of Inspired Oxygen (FIO2) 2 03/02/19 03:00 Pain Level 0 03/02/19 05:10 Comment 02/27/19 11:51 Intake & Output 03/01/19 03/01/19 03/02/19 11:59 23:59 11:59 Intake Total 3930.792 / 8039.895 4109.103 / 8039.895 150 / 150 Output Total 265 / 1350 1085 / 1350 895 / 895 Balance 3665.792 / 6689.895 3024.103 / 6689.895 -745 / -745 Weight 170 lb 6.677 oz Intake: IV 3910.792 / 7869.895 3959.103 / 7869.895 50 / 50 Oral 20 / 170 150 / 170 100 / 100 Output: Gastric Drainage 20 / 20 Left Nare 20 / 20 Urine 185 / 1210 1025 / 1210 875 / 875 Stool 60 / 120 60 / 120 20 / 20 Other: Urine Color Yellow Yellow Yellow Urine Appearance Clear Clear Clear Comment rosa cath in place draining small amount clear yellow urine. SG 1.020, PH 6, 2+ Blood, Tr Protien, rosa in place draining large amounts of clear yellow urine. SG 1.020, PH 6, 2+ Blood, Tr Protien, rosa in place draining clear yellow urine QS. Stool Occult Blood Positive Positive Positive Gastric Occult Blood Left Nare Negative Laboratory Results WBC 14.36 k/cumm (4.4-10.8) H D 03/01/19 06:20 RBC 3.23 m/cumm (4.00-5.20) L 03/01/19 06:20 Hgb 10.9 g/dL (12.0-15.5) L 03/01/19 06:20 Hct 32.5 % (36.0-46.0) L 03/01/19 06:20 MCV 100.6 fL (80-95) H 03/01/19 06:20 MCH 33.7 pg (27.0-33.0) H 03/01/19 06:20 MCHC 33.5 g/dL (32.0-36.0) 03/01/19 06:20 RDW 12.9 % (11.7-14.6) 03/01/19 06:20 Plt Count 324 x1000/uL (130-400) 03/01/19 06:20 MPV 8.8 fL (8.0-11.0) 03/01/19 06:20 Immature Gran % 0.6 03/01/19 06:20 Neutrophils % 79.0 03/01/19 06:20 Lymphocytes % 10.2 03/01/19 06:20 Monocytes % 8.2 03/01/19 06:20 Eosinophils % 1.7 03/01/19 06:20 Basophils % 0.3 03/01/19 06:20 Absolute Neutrophils 11.34 k/cumm (1.2-6.7) H 03/01/19 06:20 Absolute Lymphocytes 1.46 k/cumm (1.2-3.4) 03/01/19 06:20 Absolute Monocytes 1.18 k/cumm (0.11-0.7) H 03/01/19 06:20 Absolute Eosinophils 0.24 k/cumm (0.0-0.7) 03/01/19 06:20 Absolute Basophils 0.04 k/cumm (0.0-0.2) 03/01/19 06:20 PT 9.9 sec (9.3-11.0) 02/22/19 07:43 INR 1.0 (0.9-1.1) 02/22/19 07:43 APTT 30.3 sec (21.0-31.4) 02/22/19 07:43 Sodium 140 mmol/L (136-145) 03/01/19 06:20 Potassium 3.6 mmol/L (3.5-5.1) 03/01/19 06:20 Chloride 109 mmol/L (98-107) H 03/01/19 06:20 Carbon Dioxide 20.3 mmol/L (21.0-32.0) L 03/01/19 06:20 Anion Gap 10.7 mmol/L (3-11) 03/01/19 06:20 BUN 6 mg/dL (7-18) L 03/01/19 06:20 Creatinine 0.68 mg/dL (0.55-1.02) 03/01/19 06:20 Estimated GFR/1.73 m2 >= 60.00 (mL/min/1.73m2) 03/01/19 06:20 Glucose 119 mg/dL (70-100) H 03/01/19 06:20 Calcium 7.8 mg/dL (8.5-10.1) L 03/01/19 06:20 Phosphorus 4.5 mg/dL (2.6-4.7) 03/01/19 06:20 Magnesium 1.7 mg/dL (1.8-2.4) L 03/01/19 06:20 Total Bilirubin 0.2 mg/dL (0.2-1.0) 02/28/19 08:25 AST 18 U/L (15-37) 02/28/19 08:25 ALT 18 U/L (12-78) 02/28/19 08:25 Alkaline Phosphatase 54 U/L (46-116) 02/28/19 08:25 C-Reactive Protein 11.70 mg/dL (0.0-0.3) H 03/01/19 06:20 C-React Prot High Sens 9.17 mg/L 02/24/19 06:45 Total Protein 4.6 g/dL (6.4-8.2) L 02/28/19 08:25 Albumin 2.2 g/dL (3.4-5.0) L 02/28/19 08:25 Lipase 67 U/L (73-393) L 02/22/19 07:43 TSH 5.32 uIU/mL (0.358-3.74) H 02/28/19 08:25 Patient ABO/Rh O Positive 02/28/19 08:25 Antibody Screen Negative 02/28/19 08:25
[2019-03-02 06:43] LABS: Abs Immature Grans 0.06 k/cumm (0.0-0.09); Absolute Basophil Count 0.01 k/cumm (0.0-0.2); Absolute Eosinophil Count 0.45 k/cumm (0.0-0.7); Absolute Lymphocyte Count 0.78 k/cumm (1.2-3.4); Absolute Monocyte Count 1.13 k/cumm (0.11-0.7); Basophils % 0.1; Eosinophils % 4.8; HCT 27.9 % (36.0-46.0); HGB 9.2 g/dL (12.0-15.5); Immature Grans % 0.6; Lymphocytes % 8.3; Mean Corpuscular Hemoglobin 33.3 pg (27.0-33.0); Mean Corpuscular Volume 101.1 fL (80-95); Mean Platelet Volume 8.7 fL (8.0-11.0); Neutrophils % 74.2; Platelet Count 198 x1000/uL (130-400); RBC 2.76 m/cumm (4.00-5.20); RBC Distribution Width 12.7 % (11.7-14.6); White Blood Cell Count 9.44 k/cumm (4.4-10.8)
[2019-03-02 06:52] LABS: Anion Gap 5.8 mmol/L (3-11); BUN 9 mg/dL (7-18); CO2 27.2 mmol/L (21.0-32.0); CREATININE 0.75 mg/dL (0.55-1.02); Calcium 7.8 mg/dL (8.5-10.1); Chloride 107 mmol/L (98-107); Glucose 131 mg/dL (70-100); Magnesium 1.9 mg/dL (1.8-2.4); Potassium 3.2 mmol/L (3.5-5.1); Sodium 140 mmol/L (136-145)
[2019-03-02] MEDS: Furosemide 20 MG/2 ML VIAL IVP ×2 (09:18→17:47)
[2019-03-02] MEDS: Levothyroxine 100 MCG VIAL 75 MCG IVP (09:19)
--- NOTE | 2019-03-02 09:39 | PDOC.ANES ---
Anesthesia Note Daily epidural management: Pain level remains at 0/10 but c/o soreness due to feeling full, and with cough. Up in chair, urine output improving, off all of pressor gtts. VSS. Plan to decrease basal rate of epidural to 5 ml/hr (done at 0845) and re-evaluate pain level in a few hours. Patient is eager to be up and moving.
[2019-03-02] MEDS: POTASSIUM CHLORIDE 10 MEQ/100 ML BAG 100 MEQ IVPB ×2 (10:22→11:50)
--- NOTE | 2019-03-02 10:32 | OT.INTREAT ---
Date of service: 03/02/19 Time of Service: 10:05 Occupational Therapy Notes Occupational Therapy Inpatient Treatment Note Date: 03/02/19 PRECAUTIONS: Fall, standard SUBJECTIVE: Pt was sitting in chair when OT arrived. Pt was agreeable to OT session. OBJECTIVE: PAIN: c/o pain in abdomen with coughing and stand to sit. GROOMING: Standing at sink with FWW CGAx2 as pt verbalized that she would like two people to feel more stable. Pt was able to brush teeth (I) with good standing tolerance. Good static standing balance. ASSESSMENT/PLAN: Pt tolerated standing at sink with FWW to perform teeth brushing. She demonstrated increased (I) with teeth brushing with CGA and FWW. She was tired post session. She denied performed bathing routine but OT will continue to progress pt towards goals established at initial evaluation. TREATMENT CODES/TIME: [id number], 10 minutes (08:05) Dolores Savage OTR/[facility]
--- NOTE | 2019-03-02 10:40 | OTTR_ITS ---
Date of service: 03/02/19 Time of Service: 10:05 Occupational Therapy Notes Occupational Therapy Inpatient Treatment Note Date: 03/02/19 PRECAUTIONS: Fall, standard SUBJECTIVE: Pt was sitting in chair when OT arrived. Pt was agreeable to OT session. OBJECTIVE: PAIN: c/o pain in abdomen with coughing and stand to sit. GROOMING: Standing at sink with FWW CGAx2 as pt verbalized that she would like two people to feel more stable. Pt was able to brush teeth (I) with good standing tolerance. Good static standing balance. ASSESSMENT/PLAN: Pt tolerated standing at sink with FWW to perform teeth brushing. She demonstrated increased (I) with teeth brushing with CGA and FWW. She was tired post session. She denied performed bathing routine but OT will continue to progress pt towards goals established at initial evaluation. TREATMENT CODES/TIME: [id number], 10 minutes (08:05) Dolores Savage OTR/[facility]
--- NOTE | 2019-03-02 10:49 | PT.INTREAT ---
Date of service: 03/02/19 Time of Service: 10:49 PT Notes Inpatient Physical Therapy Treatment Note [facility] Date: 03/02/19 PRECAUTIONS: Fall SUBJECTIVE: Ruthann states that she got good rest last night, and feels a little better than yesterday. OBJECTIVE: PAIN: Patient c/o abdominal pain with [id number] transfers BED MOBILITY/TRANSFERS Sit-supine: Min A with HOB at 20 degrees Sit-stand: SBA Stand-sit: SBA GAIT Assistive Device: FWW Weight bearing: Full Assist: SBA Distance: 5' F/B x2 + 5' x2 in a.m.; 25' in p.m. Static standing x1 minute 30 seconds with B UE support and SBA + x4 minutes with unilateral UE support and SBA THEREX: Patient completed standing hip flexion and mini squat exercises with FWW support and SBA kevan.m., as well a a supine LE strengthening and gentle core stabilization program in p.m., as per flow sheet. ASSESSMENT: Patient tolerated session with minimal c/o abdominal pain with [id number] transfers. She was able to tolerate a progression in gait distance with FWW support and SBA. She would benefit from continued gait and transfer training as well as strengthening for improved ability to perform daily functional tasks at a more independent level. PLAN: Continue with PT's POC TREATMENT CODE/TIME: Session 1: 30 minutes; [id number] x2 Session 2: 30 minutes; [id number], [id number]
--- NOTE | 2019-03-02 15:02 | CHAPLAIN ---
I had a long conversation with Ruthann today. She shared some personal history and told me the baby steps she has been making - walking a bit and eating real food. She has a colostomy bag following her surgery. She said she hasn't looked at it yet, because she's been dealing with a lot. She is confident that she'll be able to learn how to take care of it soon. It has been difficult for Ruthann to accept help from others as she is the usual caregiver. Ruthann is a member of [employer] and [employer] as been visiting her.
--- NOTE | 2019-03-02 15:29 | PDOC.CMPRO ---
- If Service Date Differs Date of service: 03/02/19 Time of Service: 15:29 Care Management Progress Note S/O: Idalia was able to sit up to the chair today. She continues to receive PT/OT, she has been advanced to clear liquid diet. Idalia's goals are to get stronger and return home. has ordered to start teaching ostomy care. CM has contacted home health and placed referral for time of discharge. Anticipate she may need short stay SB1 prior to returning home. She remains acute today no other changes in status. A: Idalia is a 68 year old female admitted with intestinal abscess which she has been treated as an outpatient for the past four months with oral antibiotics and close follow up. She is now post op day 0 for the following procedures: 1. Exploratory Laparotomy with sigmoid resection and splenic flexure mobilization 2. Colostomy creation 3. Bilateral slapingoopherectomy 4. colon polyp removal P: Idalia transition to ICU level of care today post op day 1. Idalia will return home with new home health orders for nursing, and wound management including new(stoma) ostomy care when she is medically ready for discharge. Idalia may need a short SB1 stay related to prolonged hospitalization and need for PT and OT. She has family that will also provide assistance and support at home. Idalia will need education r/t wound management, stoma and ostomy care she should also identify a support person who can learn the care as well. CM will revisit this with the patient once she is more alert. CM to continue to provide support discharge planing and disposition.
--- NOTE | 2019-03-02 15:35 | CMPROGNOTE_ITS ---
- If Service Date Differs Date of service: 03/02/19 Time of Service: 15:29 Care Management Progress Note S/O: Idalia was able to sit up to the chair today. She continues to receive PT/OT, she has been advanced to clear liquid diet. Idalia's goals are to get stronger and return home. has ordered to start teaching ostomy care. CM has contacted home health and placed referral for time of discharge. Anticipate she may need short stay SB1 prior to returning home. She remains acu te today no other changes in status. A: Idalia is a 68 year old female admitted with intestinal abscess which she has been treated as an outpatient for the past four months with oral antibiotics and close follow up. She is now post op day 0 for the following procedures: 1. Exploratory Laparotomy with sigmoid resection and splenic flexure mobilization 2. Colostomy creation 3. Bilateral slapingoopherectomy 4. colon polyp removal P: Idalia transition to ICU level of care today post op day 1. Idalia will return home with new home health orders for nursing, and wound management inclu ding new(stoma) ostomy care when she is medically ready for discharge. Idalia may need a short SB1 stay related to prolonged hospitalization and need for PT and OT. She has family that will also provide assistance and support at home. Idalia will need education r/t wound management, stoma and ostomy care she should also identify a support person who can learn the care as well. CM will revisit this with the patient once she is more alert. CM to continue to provide support discharge planing and disposition.
[2019-03-02] MEDS: Enoxaparin 40 MG/0.4 ML SYR SC (20:35)
[2019-03-03] VITALS (27 sets, daily range): BP systolic 119–169; BP diastolic 65–87; PULSE 72–91; RESP 13–22; TEMP 36.3–37.8; O2SAT 93–99
[2019-03-03] MEDS: PIPERACILLIN/TAZO 3.375 GM in Normal Saline 50 ML IVPB ×3 (00:17→12:22)
[2019-03-03] MEDS: Ketorolac 15 MG/ML VIAL IVP ×4 (00:17→17:29)
[2019-03-03] MEDS: FAMOTIDINE 20 MG/50 ML BAG 200 MG IVPB ×2 (05:23→17:29)
[2019-03-03] MEDS: FentaNYL/ROPIvacaine 2 mcg/ml and 0.1% 200 ML CADD Cassette EP (06:17)
[2019-03-03 07:33] LABS: Anion Gap 5.3 mmol/L (3-11); BUN 12 mg/dL (7-18); C-Reactive Protein 9.79 mg/dL (0.0-0.3); CO2 28.7 mmol/L (21.0-32.0); CREATININE 0.74 mg/dL (0.55-1.02); Calcium 8.6 mg/dL (8.5-10.1); Chloride 107 mmol/L (98-107); Glucose 112 mg/dL (70-100); Magnesium 1.6 mg/dL (1.8-2.4); Sodium 141 mmol/L (136-145)
[2019-03-03] MEDS: Normal Saline Flush 10 ML SYR IVP ×2 (08:45→12:21)
[2019-03-03] MEDS: Levothyroxine 100 MCG VIAL 75 MCG IVP (08:45)
--- NOTE | 2019-03-03 08:45 | W.PM.PROGNOT ---
Documented by User: ROAS Gerard 03/03/19 08:56 Date of Service Date of service: 03/03/19 Time of Service: 08:45 Assessment and Plan (1) 2+ pitting edema: Current visit: No Status: Acute Improving with Lasix. 3L of urine output over night. Continue to monitor Mg+ and K+, will replenish as needed. (2) Hypomagnesemia: Current visit: No Status: Acute (3) S/P exploratory laparotomy: Current visit: No Status: Acute POD #4 DIET- Tolerated clear liquid diet last night. Will progress as tolerated to soft, low fiber surgical diet today. Will start weaning off TPN. Incision site has minimal drainage. No erythema or induration. Colostomy- Ostomy is pink, with dark brown stool output. Activity- Continue progressing with PT and OT. Encouraged sitting in the chair for all meals. Subjective Interval history since last seen: Patient is doing well. She reports that she was able to get sleep last night and was working with PT and OT yesterday, she walked 3x. Reports she only has abdominal pain with moving and coughing. Denies any nausea or vomiting. Exam Const General: cooperative and comfortable Orientation: alert and oriented x3 GI Inspection: incision (Midline. Minimal bloody/serous drainage. No erythema, induration or warmth.) Palpation: soft, no guarding, nontender and ascites Other: Colostomy- Ostomy is pink. Dark brown liquid stool present in her bag. Extrem Right upper extremity: edema (Mild. Improved compared to yesterday. ) Left upper extremity: edema Right lower extremity: edema Details: pitting and 2+ Left lower extremity: edema Details: pitting and 2+ Objective Objective Clinical Data: Abnormal lab results 03/03/19 Range/Units 06:30 Potassium 3.0 L (3.5-5.1) mmol/L Glucose 112 H (70-100) mg/dL Magnesium 1.6 L (1.8-2.4) mg/dL C-Reactive Protein 9.79 H (0.0-0.3) mg/dL Vital Signs Temperature 37.8 C H 03/03/19 07:59 Temperature Source Temporal Artery Scan 03/03/19 07:59 Pulse 79 03/03/19 07:59 Pulse Rhythm Regular 02/28/19 08:34 Pulse 78 03/03/19 07:30 Respiratory Rate 18 03/03/19 07:59 Respiratory Effort Non-Labored 03/03/19 07:59 Respiratory Depth Normal 03/03/19 07:59 Respiratory Pattern Normal 03/03/19 07:59 Blood Pressure 136/65 03/03/19 07:59 Blood Pressure Mean 88 03/03/19 07:59 Blood Pressure Position Supine 03/03/19 07:59 Pulse Oximetry 99 03/03/19 07:59 Respiratory End-tidal CO2 29 02/28/19 15:40 Oxygen Delivery Method Room Air 03/03/19 07:59 Oxygen Flow Rate 0 03/03/19 07:59 Fraction of Inspired Oxygen (FIO2) 2 03/02/19 03:00 Pain Level 0 03/03/19 07:59 Comment 02/27/19 11:51 Intake & Output 03/02/19 03/03/19 03/03/19 18:59 06:59 18:59 Intake Total 3179.210 / 6338.543 3159.333 / 6338.543 Output Total 1409 / 4809 940 / 4809 2460 / 2460 Balance 1770.210 / 8119.632 1911.333 / 1529.543 -2460 / -2460 Weight 77.5 kg Intake: IV 2699.210 / 5138.543 2439.333 / 5138.543 Oral 480 / 1200 720 / 1200 Output: Urine 1394 / 4694 900 / 4694 2400 / 2400 Stool 15 / 115 40 / 115 60 / 60 Other: Urine Color Yellow Yellow Yellow Urine Appearance Clear Clear Clear Sediment Comment Rosa in place and now draining good amts of clear, yellow urine. Indwelling rosa draining clear yellow urine QS Stool Occult Blood Positive Positive Laboratory Results WBC 9.44 k/cumm (4.4-10.8) D 03/02/19 06:20 RBC 2.76 m/cumm (4.00-5.20) L 03/02/19 06:20 Hgb 9.2 g/dL (12.0-15.5) L 03/02/19 06:20 Hct 27.9 % (36.0-46.0) L 03/02/19 06:20 MCV 101.1 fL (80-95) H 03/02/19 06:20 MCH 33.3 pg (27.0-33.0) H 03/02/19 06:20 MCHC 33.0 g/dL (32.0-36.0) 03/02/19 06:20 RDW 12.7 % (11.7-14.6) 03/02/19 06:20 Plt Count 198 x1000/uL (130-400) D 03/02/19 06:20 MPV 8.7 fL (8.0-11.0) 03/02/19 06:20 Immature Gran % 0.6 03/02/19 06:20 Neutrophils % 74.2 03/02/19 06:20 Lymphocytes % 8.3 03/02/19 06:20 Monocytes % 12.0 03/02/19 06:20 Eosinophils % 4.8 03/02/19 06:20 Basophils % 0.1 03/02/19 06:20 Absolute Neutrophils 7.00 k/cumm (1.2-6.7) H 03/02/19 06:20 Absolute Lymphocytes 0.78 k/cumm (1.2-3.4) L 03/02/19 06:20 Absolute Monocytes 1.13 k/cumm (0.11-0.7) H 03/02/19 06:20 Absolute Eosinophils 0.45 k/cumm (0.0-0.7) 03/02/19 06:20 Absolute Basophils 0.01 k/cumm (0.0-0.2) 03/02/19 06:20 PT 9.9 sec (9.3-11.0) 02/22/19 07:43 INR 1.0 (0.9-1.1) 02/22/19 07:43 APTT 30.3 sec (21.0-31.4) 02/22/19 07:43 Sodium 141 mmol/L (136-145) 03/03/19 06:30 Potassium 3.0 mmol/L (3.5-5.1) L 03/03/19 06:30 Chloride 107 mmol/L (98-107) 03/03/19 06:30 Carbon Dioxide 28.7 mmol/L (21.0-32.0) 03/03/19 06:30 Anion Gap 5.3 mmol/L (3-11) 03/03/19 06:30 BUN 12 mg/dL (7-18) 03/03/19 06:30 Creatinine 0.74 mg/dL (0.55-1.02) 03/03/19 06:30 Estimated GFR/1.73 m2 >= 60.00 (mL/min/1.73m2) 03/03/19 06:30 Glucose 112 mg/dL (70-100) H 03/03/19 06:30 Calcium 8.6 mg/dL (8.5-10.1) 03/03/19 06:30 Phosphorus 4.5 mg/dL (2.6-4.7) 03/01/19 06:20 Magnesium 1.6 mg/dL (1.8-2.4) L 03/03/19 06:30 Total Bilirubin 0.2 mg/dL (0.2-1.0) 02/28/19 08:25 AST 18 U/L (15-37) 02/28/19 08:25 ALT 18 U/L (12-78) 02/28/19 08:25 Alkaline Phosphatase 54 U/L (46-116) 02/28/19 08:25 C-Reactive Protein 9.79 mg/dL (0.0-0.3) H 03/03/19 06:30 C-React Prot High Sens 9.17 mg/L 02/24/19 06:45 Total Protein 4.6 g/dL (6.4-8.2) L 02/28/19 08:25 Albumin 2.2 g/dL (3.4-5.0) L 02/28/19 08:25 Lipase 67 U/L (73-393) L 02/22/19 07:43 TSH 5.32 uIU/mL (0.358-3.74) H 02/28/19 08:25 Patient ABO/Rh O Positive 02/28/19 08:25 Antibody Screen Negative 02/28/19 08:25 Documented by User: Sony Maldonado MD 06/07/19 10:08 Assessment and Plan (1) S/P exploratory laparotomy: Current visit: No Status: Acute POD # 4 s/p exp lap, colostomy, BSO. Patient seen with [id number] at bedside. Agree with above. Hypomagnesemia/hypokalemia being corrected with po. Continue Lasix/ diuresis. Epidural off at this time. May be d/c'd later today per anesthesia. Will continue TPN until po intake is adequate. D/C telemetry and transfer to med-surg. Await PT/OT recommendations for discharge. May need [facility] services. Exam GI Inspection: other (midline dressing intact) Auscultation: normoactive bowel sounds
[2019-03-03] MEDS: Furosemide 20 MG/2 ML VIAL IVP ×2 (08:46→15:24)
--- NOTE | 2019-03-03 08:49 | PDOC.ANES ---
Anesthesia Note Daily Epidural Management: Denies pain, but sore with cough or position changes from sitting to lying. Tolerating advanced diet, up in chair, diuresing well and edema decreased but weight up again slightly this am. Bibasilar lungs diminished. No respiratory distress. VSS. Epidural infusion stopped at 0838. Plan to reassess in a few hours. Has Toradol and IV Acetaminophen PRN. Epidural catheter intact and capped.
[2019-03-03] MEDS: Potassium Chloride 20 MEQ TABCR 40 MEQ PO (09:31)
[2019-03-03] MEDS: Magnesium Oxide 400 MG TAB PO ×2 (09:31→19:27)
--- NOTE | 2019-03-03 10:17 | PT.INTREAT ---
Date of service: 03/03/19 Time of Service: 10:17 PT Notes 03/03/19 SUBJECTIVE: Ruthann stating she slept well again last night. She notes some discomfort sitting in the chair currently but mostly her discomfort occurs when getting in and out of bed or standing and sitting to a chair. OBJECTIVE: Seated in her chair. Agreeable to PT. TRANSFERS Sit to stand: SBA Stand to Sit: SBA GAIT Device: FWW Weight bearing: Full Assist: SBA Distance: 75' Deviation: Step through pattern, no discomfort noted. Stood in place x2 minutes. THEREX: Pt declined until this afternoon. ASSESSMENT: Progressed with gait distance today, no LOB or significant fatigue noted. We will progress with some light strengthening as she tolerates. PLAN: Continue current POC progressing toward's established goals. Treatment time: 20 minutes [id number] Annette Lai, IT PROGRAM AUDITOR
--- NOTE | 2019-03-03 10:20 | PTTR_ITS ---
Date of service: 03/03/19 Time of Service: 10:17 PT Notes 03/03/19 SUBJECTIVE: Ruthann stating she slept well again last night. She notes some discomfort sitting in the chair currently but mostly her discomfort occurs when getting in and out of bed or standing and sitting to a chair. OBJECTIVE: Seated in her chair. Agreeable to PT. TRANSFERS Sit to stand: SBA Stand to Sit: SBA GAIT Device: FWW Weight bearing: Full Assist: SBA Distance: 75' Deviation: Step through pattern, no discomfort noted. Stood in place x2 minutes. THEREX: Pt declined until this afternoon. ASSESSMENT: Progressed with gait distance today, no LOB or significant fatigue noted. We will progress with some light strengthening as she tolerates. PLAN: Continue current POC progressing toward's established goals. Treatment time: 20 minutes [id number] Annette Lai, COMMUNITY SERVICE MANAGER
--- NOTE | 2019-03-03 11:18 | OT.INTREAT ---
Date of service: 03/03/19 Time of Service: 10:10 Occupational Therapy Notes Occupational Therapy Inpatient Treatment Note Date: 03/03/19 PRECAUTIONS: Fall, Standard SUBJECTIVE: Pt was sitting chair when OT arrived. She was agreeable with OT session. OBJECTIVE: PAIN:c/o pain in abdomen when coughing BATHING: Sitting in chair with max (A) set up Upper Body: (I) Lower Body: Max (A) legs and feet DRESSING: Sitting in chair Upper Extremity: Min (A) [facility] Lower Extremity: Max (A) GROOMING: Sitting in chair with max *(A) setup (I) ASSESSMENT/PLAN: Pt tolerated skilled OT services well. She requires max (A) for set up but was functionally able to perform all UE bathing (I). She requires max (A) for LE due to pain in abdomen. OT will continue to progress pt towards OT goals. TREATMENT CODES/TIME: [id number], 35 minutes (10:10) Dolores Savage OTR/L [facility]
--- NOTE | 2019-03-03 11:24 | OTTR_ITS ---
Date of service: 03/03/19 Time of Service: 10:10 Occupational Therapy Notes Occupational Therapy Inpatient Treatment Note Date: 03/03/19 PRECAUTIONS: Fall, Standard SUBJECTIVE: Pt was sitting chair when OT arrived. She was agreeable with OT session. OBJECTIVE: PAIN:c/o pain in abdomen when coughing BATHING: Sitting in chair with max (A) set up Upper Body: (I) Lower Body: Max (A) legs and feet DRESSING: Sitting in chair Upper Extremity: Min (A) [facility] Lower Extremity: Max (A) GROOMING: Sitting in chair with max *(A) setup (I) ASSESSMENT/PLAN: Pt tolerated skilled OT services well. She requires max (A) for set up but was functionally able to perform all UE bathing (I). She requires max (A) for LE due to pain in abdomen. OT will continue to progress pt towards OT goals. TREATMENT CODES/TIME: [id number], 35 minutes (10:10) Dolores Savage OTR/L [facility]
--- NOTE | 2019-03-03 11:36 | PDOC.CMPRO ---
- If Service Date Differs Date of service: 03/03/19 Time of Service: 11:39 Care Management Progress Note S/O: Idalia is sitting up in the chair she has just met with occupational services when CM arrives. Per nursing she is transferred to acute status today. She has the epidural still in place however no longer receiving medication through it. She is tolerating full liquid diet. She continues to receive IV fluids, TPN and antibiotics. She will likely move to the medical surgical unit today and she should begin teaching r/t ostomy care which will continue through home health when she is discharged. A: Idalia is a 68 year old female admitted with intestinal abscess which she has been treated as an outpatient for the past four months with oral antibiotics and close follow up. She is now post op day 0 for the following procedures: 1. Exploratory Laparotomy with sigmoid resection and splenic flexure mobilization 2. Colostomy creation 3. Bilateral slapingoopherectomy 4. colon polyp removal P: Idalia is post op day 3 she has transition to acute status from ICU level. Idalia will return home with new home health orders for nursing, and wound management including new(stoma) ostomy care when she is medically ready for discharge. Home health is aware of referral and updated on her progress. Idalia may need a short SB1 stay related to prolonged hospitalization and need for PT and OT. She has family that will also provide assistance and support at home. Idalia will need education r/t wound management, stoma and ostomy care. CM will continue to provide ongoing support and discharge planning.
--- NOTE | 2019-03-03 12:13 | PDOC.ANES ---
Date of service: 03/03/19 Time of Service: 11:24 Anesthesia Note Epidural catheter d/c'd. Blue tip intact. Patient ambulated in eddy and denies pain. Being transferred to Med/Surg today. VSS
--- NOTE | 2019-03-03 13:34 | PT.INTREAT ---
Date of service: 03/03/19 Time of Service: 09:55 PT Notes 03/03/19 SUBJECTIVE: Ruthann states that she's nervous about getting in/out of bed. She had a difficult transfer last night, and feels that this is the most challenging activity for her. She is extremely motivated to return directly home from here. OBJECTIVE: Seated in her chair. Agreeable to PT. TRANSFERS Sit to stand: SBA Stand to Sit: SBA sit-supine: min A with HOB flat on first attempt. Patient received transfer training and cues for technique. Second attempt shows ability to complete with SBA only, and minimal UE support to bed rails. supine-sit: SBA with HOB flat GAIT Device: FWW Weight bearing: Full Assist: SBA Distance: 120'x2 Deviation: Step through pattern, no discomfort noted. Stood in place x2 minutes. THEREX: Pt declined due to fatigue ASSESSMENT: Patient completed multiple brief sessions of PT today for gait and transfer training throughout the day. She demonstrated significantly improved tolerance to bed mobility and transfers. PLAN: Continue current POC progressing toward's established goals. Treatment time: 9:55-10:20; 12:20 - 12:25; 1:20 - 1:30 (total 40 minutes) [id number] Ratna Mckeon, PT, DPT [facility]
--- NOTE | 2019-03-03 13:39 | PTTR_ITS ---
Date of service: 03/03/19 Time of Service: 09:55 PT Notes 03/03/19 SUBJECTIVE: Ruthann states that she's nervous about getting in/out of bed. She had a difficult transfer last night, and feels that this is the most challenging activity for her. She is extremely motivated to return directly home from here. OBJECTIVE: Seated in her chair. Agreeable to PT. TRANSFERS Sit to stand: SBA Stand to Sit: SBA sit-supine: min A with HOB flat on first attempt. Patient received transfer training and cues for technique. Second attempt shows ability to complete with SBA only, and minimal UE support to bed rails. supine-sit: SBA with HOB flat GAIT Device: FWW Weight bearing: Full Assist: SBA Distance: 120'x2 Deviation: Step through pattern, no discomfort noted. Stood in place x2 minutes. THEREX: Pt declined due to fatigue ASSESSMENT: Patient completed multiple brief sessions of PT today for gait and transfer training throughout the day. She demonstrated significantly improved tolerance to bed mobility and transfers. PLAN: Continue current POC progressing toward's established goals. Treatment time: 9:55-10:20; 12:20 - 12:25; 1:20 - 1:30 (total 40 minutes) [id number] Ratna Mckeon, PT, DPT [facility]
[2019-03-03] MEDS: Patch Removal TD (13:42)
--- NOTE | 2019-03-03 16:05 | NUR.NOTE ---
1400 Recieved report from MICHAEL Wells in ICU, pt transferred to 215 via ambulation with PT, tolerated well. A&O x4, states no pain but tightness in abd +BS x4, dark brown liquid stool from ostomy. Will cont to monitor.
[2019-03-03] MEDS: Simethicone 80 MG CHEW PO (17:29)
[2019-03-03] MEDS: Enoxaparin 40 MG/0.4 ML SYR SC (19:27)
[2019-03-03] MEDS: LORazepam 0.5 MG TAB PO (21:53)
[2019-03-04] VITALS (20 sets, daily range): BP systolic 103–177; BP diastolic 70–89; PULSE 78–90; RESP 16–81; TEMP 36–37.4; O2SAT 97–99
[2019-03-04] MEDS: Ketorolac 15 MG/ML VIAL IVP ×4 (00:20→17:12)
[2019-03-04] MEDS: Metoprolol 5 MG/5 ML VIAL 2.5 MG IVP (01:24)
[2019-03-04] MEDS: Normal Saline Flush 10 ML SYR IVP ×2 (02:08→05:43)
[2019-03-04] MEDS: FAMOTIDINE 20 MG/50 ML BAG 200 MG IVPB ×2 (05:43→17:13)
--- NOTE | 2019-03-04 08:16 | PT.INTREAT ---
Date of service: 03/04/19 Time of Service: 08:16 PT Notes 03/04/19 SUBJECTIVE: Ruthann stating she is okay today. She notes soreness through her abdomen and she was unable to eat last night. She is hopeful for a better day. OBJECTIVE: Seated in her chair. Agreeable to PT treatment. TRANSFERS Sit to stand: S Stand to sit: S GAIT Device: FWW Weight bearing: Full Assist: S Distance: 300' ASSESSMENT: Pt is making gains in her mobility and gait distance. She continues to be quite sore and this may partially be due to increase in activity yesterday. She is encouraged to walk again later this afternoon with nursing. PLAN: Continue current POC progressing toward's established goals. Treatment time: 15 minutes [id number] Annette Lai, DYE JIG OPERATOR
--- NOTE | 2019-03-04 08:20 | PTTR_ITS ---
Date of service: 03/04/19 Time of Service: 08:16 PT Notes 03/04/19 SUBJECTIVE: Ruthann stating she is okay today. She notes soreness through her abdomen and she was unable to eat last night. She is hopeful for a better day. OBJECTIVE: Seated in her chair. Agreeable to PT treatment. TRANSFERS Sit to stand: S Stand to sit: S GAIT Device: FWW Weight bearing: Full Assist: S Distance: 300' ASSESSMENT: Pt is making gains in her mobility and gait distance. She continues to be quite sore and this may partially be due to increase in activity yesterday. She is encouraged to walk again later this afternoon with nursing. PLAN: Continue current POC progressing toward's established goals. Treatment time: 15 minutes [id number] Annette Lai, CORN CHIP MAKER
[2019-03-04] MEDS: Levothyroxine 100 MCG VIAL 75 MCG IVP (08:59)
[2019-03-04] MEDS: Furosemide 20 MG/2 ML VIAL IVP (08:59)
[2019-03-04] MEDS: Potassium Chloride 20 MEQ TABCR 40 MEQ PO (11:24)
--- NOTE | 2019-03-04 12:06 | W.PM.PROGNOT ---
Date of Service Date of service: 03/04/19 Time of Service: 12:06 Assessment and Plan (1) S/P exploratory laparotomy: Current visit: No Status: Acute POD # 4 s/p exp lap, colostomy, BSO. Encouraged ambulation/ OOB as tolerated. Encouraged small amounts of po as tolerated. Will continue TPN until po intake is adequate. (2) 2+ pitting edema: Current visit: No Status: Acute Will d/c rosa and decrease Lasix to once a day as she has been diuresed > 5 L yesterday. Ambulate. SCDs/TEDs while in bed. (3) Hypomagnesemia: Current visit: No Status: Acute PO replacement and follow-up labs ordered. (4) Hypokalemia: Current visit: Yes Status: Acute PO potassium and follow-up labs ordered. Subjective Interval history since last seen: Patient notes that she started burping after drinking some Ensure last night which caused her to regurgitate and then vomit. She denies nausea or vomiting this am. She feels a little discouraged as she had some leakage from her ostomy appliance this morning. She still notes her legs are swollen. She is (-)2.6L for I/Os on 03/03/19. She voided > 5L. Patient seen with family at bedside. Exam Const General: cooperative, comfortable and no acute distress Orientation: alert and oriented x3 [facility] Head: normocephalic and atraumatic Eyes Sclera: sclerae normal Resp Effort & Inspection: normal respiratory effort and able to speak in complete sentences Cardio Jugular venous pressure: no JVD GI Inspection: non-distended Palpation: soft, not firm, no guarding and not rigid Auscultation: normal bowel sounds Skin General skin exam: no rashes or lesions noted and no jaundice Neuro General: alert and oriented x3 Speech: speech normal Extrem General: edema (ankles ~ 2+, improving) Laterality: bilateral Objective Objective Clinical Data: Vital Signs Temperature 37.4 C 03/04/19 11:05 Temperature Source Tympanic 03/04/19 11:05 Pulse 83 03/04/19 11:05 Pulse Rhythm Regular 03/04/19 10:42 Pulse 81 03/03/19 07:57 Respiratory Rate 18 03/04/19 11:05 Respiratory Effort Non-Labored 03/04/19 10:42 Respiratory Depth Normal 03/04/19 10:42 Respiratory Pattern Normal 03/04/19 10:42 Blood Pressure 164/81 H 03/04/19 11:05 Blood Pressure Mean 88 03/03/19 07:59 Blood Pressure Position Supine 03/03/19 07:59 Pulse Oximetry 98 03/04/19 11:05 Respiratory End-tidal CO2 29 02/28/19 15:40 Oxygen Delivery Method Room Air 03/04/19 11:05 Oxygen Flow Rate 0 03/04/19 11:05 Fraction of Inspired Oxygen (FIO2) 2 03/02/19 03:00 Pain Level 2 03/04/19 10:41 Comment 02/27/19 11:51 Intake & Output 03/03/19 03/04/19 03/04/19 23:59 11:59 23:59 Intake Total 1270 / 3191 1811 / 1811 Output Total 3360 / 5820 1725 / 1725 Balance -2090 / -2629 86 / 86 Weight 78.4 kg Intake: IV 1270 / 2951 1331 / 1331 Oral 480 / 480 Output: Urine 3200 / 5600 1125 / 1125 Stool 160 / 220 600 / 600 Other: Urine Color Light [place] Yellow Urine Appearance Clear Clear Urine Odor None Comment Rosa Stool Occult Blood Positive Voiding Methods Indwelling Catheter Laboratory Results WBC 9.44 k/cumm (4.4-10.8) D 03/02/19 06:20 RBC 2.76 m/cumm (4.00-5.20) L 03/02/19 06:20 Hgb 9.2 g/dL (12.0-15.5) L 03/02/19 06:20 Hct 27.9 % (36.0-46.0) L 03/02/19 06:20 MCV 101.1 fL (80-95) H 03/02/19 06:20 MCH 33.3 pg (27.0-33.0) H 03/02/19 06:20 MCHC 33.0 g/dL (32.0-36.0) 03/02/19 06:20 RDW 12.7 % (11.7-14.6) 03/02/19 06:20 Plt Count 198 x1000/uL (130-400) D 03/02/19 06:20 MPV 8.7 fL (8.0-11.0) 03/02/19 06:20 Immature Gran % 0.6 03/02/19 06:20 Neutrophils % 74.2 03/02/19 06:20 Lymphocytes % 8.3 03/02/19 06:20 Monocytes % 12.0 03/02/19 06:20 Eosinophils % 4.8 03/02/19 06:20 Basophils % 0.1 03/02/19 06:20 Absolute Neutrophils 7.00 k/cumm (1.2-6.7) H 03/02/19 06:20 Absolute Lymphocytes 0.78 k/cumm (1.2-3.4) L 03/02/19 06:20 Absolute Monocytes 1.13 k/cumm (0.11-0.7) H 03/02/19 06:20 Absolute Eosinophils 0.45 k/cumm (0.0-0.7) 03/02/19 06:20 Absolute Basophils 0.01 k/cumm (0.0-0.2) 03/02/19 06:20 PT 9.9 sec (9.3-11.0) 02/22/19 07:43 INR 1.0 (0.9-1.1) 02/22/19 07:43 APTT 30.3 sec (21.0-31.4) 02/22/19 07:43 Sodium 141 mmol/L (136-145) 03/03/19 06:30 Potassium 3.0 mmol/L (3.5-5.1) L 03/03/19 06:30 Chloride 107 mmol/L (98-107) 03/03/19 06:30 Carbon Dioxide 28.7 mmol/L (21.0-32.0) 03/03/19 06:30 Anion Gap 5.3 mmol/L (3-11) 03/03/19 06:30 BUN 12 mg/dL (7-18) 03/03/19 06:30 Creatinine 0.74 mg/dL (0.55-1.02) 03/03/19 06:30 Estimated GFR/1.73 m2 >= 60.00 (mL/min/1.73m2) 03/03/19 06:30 Glucose 112 mg/dL (70-100) H 03/03/19 06:30 Calcium 8.6 mg/dL (8.5-10.1) 03/03/19 06:30 Phosphorus 4.5 mg/dL (2.6-4.7) 03/01/19 06:20 Magnesium 1.6 mg/dL (1.8-2.4) L 03/03/19 06:30 Total Bilirubin 0.2 mg/dL (0.2-1.0) 02/28/19 08:25 AST 18 U/L (15-37) 02/28/19 08:25 ALT 18 U/L (12-78) 02/28/19 08:25 Alkaline Phosphatase 54 U/L (46-116) 02/28/19 08:25 C-Reactive Protein 9.79 mg/dL (0.0-0.3) H 03/03/19 06:30 C-React Prot High Sens 9.17 mg/L 02/24/19 06:45 Total Protein 4.6 g/dL (6.4-8.2) L 02/28/19 08:25 Albumin 2.2 g/dL (3.4-5.0) L 02/28/19 08:25 Lipase 67 U/L (73-393) L 02/22/19 07:43 TSH 5.32 uIU/mL (0.358-3.74) H 02/28/19 08:25 Patient ABO/Rh O Positive 02/28/19 08:25 Antibody Screen Negative 02/28/19 08:25
[2019-03-04] MEDS: Lisinopril 10 MG TAB 20 MG PO (12:22)
--- NOTE | 2019-03-04 15:08 | PDOC.CMPRO ---
Care Management Progress Note S/O: Idalia was lying in bed and stated she was exhausted today. Remains at acute status today. Epidural has been removed. She is tolerating full liquid diet. She continues to receive IV fluids, TPN and antibiotics. She was feeling quite upset due to the fact that her ostomy bag was leaking. She is still trying to adjust to the fact that she has a colostomy and has not yet attempted to learn about self care. The teaching r/t ostomy care will continue through home health when she is discharged. A: Idalia is a 68 year old female admitted with intestinal abscess which she has been treated as an outpatient for the past four months with oral antibiotics and close follow up. She is now post op day 4 for the following procedures: 1. Exploratory Laparotomy with sigmoid resection and splenic flexure mobilization 2. Colostomy creation 3. Bilateral slapingoopherectomy 4. colon polyp removal P: Idalia is post op day 4. Idalia will return home with new home health orders for nursing, and wound management including new(stoma) ostomy care when she is medically ready for discharge. Home health is aware of referral and updated on her progress. Idalia may need a short SB1 stay related to prolonged hospitalization and need for PT and OT. She has family that will also provide assistance and support at home. Idalia will need education r/t wound management, stoma and ostomy care. CM will continue to provide ongoing support and discharge planning.
[2019-03-04] MEDS: Magnesium Oxide 400 MG TAB PO (19:27)
[2019-03-04] MEDS: Enoxaparin 40 MG/0.4 ML SYR SC (19:27)
[2019-03-05] VITALS (9 sets, daily range): BP systolic 141–169; BP diastolic 76–94; PULSE 89–101; RESP 17–20; TEMP 36.6–37.5; O2SAT 96–99
[2019-03-05] MEDS: Ketorolac 15 MG/ML VIAL IVP ×3 (00:24→12:19)
[2019-03-05] MEDS: Normal Saline Flush 10 ML SYR IVP ×4 (05:33→17:51)
[2019-03-05] MEDS: Normal Saline 500 ML 30 ML IVPB (05:38)
[2019-03-05] MEDS: FAMOTIDINE 20 MG/50 ML BAG 200 MG IVPB ×2 (05:38→17:51)
[2019-03-05 07:20] LABS: Abs Immature Grans 0.08 k/cumm (0.0-0.09); Absolute Basophil Count 0.03 k/cumm (0.0-0.2); Absolute Eosinophil Count 0.54 k/cumm (0.0-0.7); Absolute Lymphocyte Count 0.74 k/cumm (1.2-3.4); Absolute Monocyte Count 1.11 k/cumm (0.11-0.7); Absolute Neutrophil Count 4.58 k/cumm (1.2-6.7); Basophils % 0.4; Eosinophils % 7.6; HCT 28.6 % (36.0-46.0); HGB 9.4 g/dL (12.0-15.5); Immature Grans % 1.1; Lymphocytes % 10.5; Mean Corp. HGB Concentration 32.9 g/dL (32.0-36.0); Mean Corpuscular Hemoglobin 33.1 pg (27.0-33.0); Mean Corpuscular Volume 100.7 fL (80-95); Mean Platelet Volume 8.9 fL (8.0-11.0); Monocytes % 15.7; Neutrophils % 64.7; Platelet Count 311 x1000/uL (130-400); RBC 2.84 m/cumm (4.00-5.20); RBC Distribution Width 12.4 % (11.7-14.6); White Blood Cell Count 7.08 k/cumm (4.4-10.8)
[2019-03-05 07:33] LABS: Anion Gap 5.3 mmol/L (3-11); BUN 12 mg/dL (7-18); CO2 25.7 mmol/L (21.0-32.0); CREATININE 0.55 mg/dL (0.55-1.02); Calcium 7.4 mg/dL (8.5-10.1); Chloride 109 mmol/L (98-107); Glucose 96 mg/dL (70-100); Magnesium 1.2 mg/dL (1.8-2.4); Potassium 3.1 mmol/L (3.5-5.1); Sodium 140 mmol/L (136-145)
[2019-03-05] MEDS: Magnesium Oxide 400 MG TAB PO ×3 (08:20→19:43)
[2019-03-05] MEDS: Potassium Chloride 20 MEQ TABCR 40 MEQ PO (08:20)
[2019-03-05] MEDS: Levothyroxine 100 MCG VIAL 75 MCG IVP (08:20)
[2019-03-05] MEDS: Furosemide 20 MG/2 ML VIAL IVP (08:20)
[2019-03-05] MEDS: Lisinopril 20 MG TAB PO (08:20)
--- NOTE | 2019-03-05 09:02 | PT.INTREAT ---
Date of service: 03/05/19 Time of Service: 09:02 PT Notes 03/05/19 SUBJECTIVE: Pt stating she was up a lot in the night needing to go to the bathroom. Continues to have discomfort with transfers in and out of bed. OBJECTIVE: Seated in recliner. Agreeable to PT treatment. TRANSFERS Sit to stand: S Stand to sit: S GAIT Device: FWW Weight bearing: Full Assist: S Distance: 300' THEREX: Review seated LAQ's to be performed throughout the day as long as it is not pulling on her abdomen. ASSESSMENT: Tolerates PT well with continued safety with gait and transfers. PLAN: Continue current POC. Treatment time: 15' [id number] Annette Lai, MARITZA
--- NOTE | 2019-03-05 11:03 | W.PM.PROGNOT ---
Date of Service Date of service: 03/05/19 Time of Service: 11:03 Assessment and Plan (1) S/P exploratory laparotomy: Current visit: No Status: Acute POD # 5 s/p exp lap, colostomy, BSO. Encouraged ambulation/ OOB as tolerated. Encouraged small amounts of po as tolerated. PO intake improving. Will continue TPN until po intake is adequate. Discussed with patient urinary incontinence may be due to having had a rosa catheter for several days. Rosa d/c'd 03/04/19. Expect this will improve with time. (2) 2+ pitting edema: Current visit: No Status: Acute Improving. Diuresed with UO > 5 L x 2 days. Ambulate. SCDs/TEDs while in bed. Continue Lasix once daily. (3) Hypomagnesemia: Current visit: No Status: Acute Magnesium level decreased to 1.2. Add 1 gm MgSO4 bolus today and increase Mg oxide po to TID. (4) Hypokalemia: Current visit: Yes Status: Acute PO potassium and follow-up labs ordered. Subjective Interval history since last seen: Patient up in chair. She notes that she was up overnight voiding every couple hours. She notes that she is not able to hold her urine. Burping but no nausea or vomiting this am. Labs noted. Exam Const General: cooperative and no acute distress Orientation: alert and oriented x3 HENMT Head: normocephalic and atraumatic Eyes Sclera: sclerae normal Resp Effort & Inspection: normal respiratory effort and able to speak in complete sentences Cardio Jugular venous pressure: no JVD GI Inspection: non-distended, incision (midline ari dry/clean/intact) and other (ostomy - pink and viable, semi-solid stool in bag) Palpation: soft, not firm, no guarding and not rigid Auscultation: normal bowel sounds Skin General skin exam: no jaundice Neuro General: alert and oriented x3 Speech: speech normal Extrem General: edema (ankles ~ 2+, improving) Laterality: bilateral Objective Objective Clinical Data: Abnormal lab results 03/05/19 03/05/19 Range/Units 07:00 07:00 RBC 2.84 L (4.00-5.20) m/cumm Hgb 9.4 L (12.0-15.5) g/dL Hct 28.6 L (36.0-46.0) % MCV 100.7 H (80-95) fL MCH 33.1 H (27.0-33.0) pg Absolute Lymphocytes 0.74 L (1.2-3.4) k/cumm Absolute Monocytes 1.11 H (0.11-0.7) k/cumm Potassium 3.1 L (3.5-5.1) mmol/L Chloride 109 H (98-107) mmol/L Calcium 7.4 L (8.5-10.1) mg/dL Magnesium 1.2 L (1.8-2.4) mg/dL Vital Signs Temperature 37.0 C 03/05/19 07:20 Temperature Source Tympanic 03/05/19 07:20 Pulse 91 H 03/05/19 07:20 Pulse Rhythm Regular 03/05/19 08:02 Pulse 81 03/03/19 07:57 Respiratory Rate 20 03/05/19 07:20 Respiratory Effort 03/05/19 08:02 Respiratory Depth Normal 03/05/19 08:02 Respiratory Pattern Normal 03/05/19 08:02 Blood Pressure 152/86 H 03/05/19 07:20 Blood Pressure Mean 88 03/03/19 07:59 Blood Pressure Position Supine 03/03/19 07:59 Pulse Oximetry 99 03/05/19 10:40 Respiratory End-tidal CO2 29 02/28/19 15:40 Oxygen Delivery Method Room Air 03/05/19 10:40 Oxygen Flow Rate 0 03/05/19 10:40 Fraction of Inspired Oxygen (FIO2) 2 03/02/19 03:00 Pain Level 0 03/05/19 07:20 Comment 02/27/19 11:51 Intake & Output 03/04/19 03/04/19 03/05/19 11:59 23:59 11:59 Intake Total 1811 / 3121 1310 / 3121 333.5 / 333.5 Output Total 2725 / 5525 2800 / 5525 2800 / 2800 Balance -914 / -2404 -1490 / -2404 -2466.5 / -2466.5 Weight 78.4 kg Intake: IV 1331 / 2401 1070 / 2401 333.5 / 333.5 Oral 480 / 720 240 / 720 Output: Urine 2125 / 4775 2650 / 4775 2600 / 2600 Stool 600 / 750 150 / 750 200 / 200 Other: Urine Color Yellow Yellow Pale Urine Appearance Clear Clear Clear Urine Odor None Normal Voiding Methods Toilet Toilet Laboratory Results WBC 7.08 k/cumm (4.4-10.8) 03/05/19 07:00 RBC 2.84 m/cumm (4.00-5.20) L 03/05/19 07:00 Hgb 9.4 g/dL (12.0-15.5) L 03/05/19 07:00 Hct 28.6 % (36.0-46.0) L 03/05/19 07:00 MCV 100.7 fL (80-95) H 03/05/19 07:00 MCH 33.1 pg (27.0-33.0) H 03/05/19 07:00 MCHC 32.9 g/dL (32.0-36.0) 03/05/19 07:00 RDW 12.4 % (11.7-14.6) 03/05/19 07:00 Plt Count 311 x1000/uL (130-400) D 03/05/19 07:00 MPV 8.9 fL (8.0-11.0) 03/05/19 07:00 Immature Gran % 1.1 03/05/19 07:00 Neutrophils % 64.7 03/05/19 07:00 Lymphocytes % 10.5 03/05/19 07:00 Monocytes % 15.7 03/05/19 07:00 Eosinophils % 7.6 03/05/19 07:00 Basophils % 0.4 03/05/19 07:00 Absolute Neutrophils 4.58 k/cumm (1.2-6.7) 03/05/19 07:00 Absolute Lymphocytes 0.74 k/cumm (1.2-3.4) L 03/05/19 07:00 Absolute Monocytes 1.11 k/cumm (0.11-0.7) H 03/05/19 07:00 Absolute Eosinophils 0.54 k/cumm (0.0-0.7) 03/05/19 07:00 Absolute Basophils 0.03 k/cumm (0.0-0.2) 03/05/19 07:00 PT 9.9 sec (9.3-11.0) 02/22/19 07:43 INR 1.0 (0.9-1.1) 02/22/19 07:43 APTT 30.3 sec (21.0-31.4) 02/22/19 07:43 Sodium 140 mmol/L (136-145) 03/05/19 07:00 Potassium 3.1 mmol/L (3.5-5.1) L 03/05/19 07:00 Chloride 109 mmol/L (98-107) H 03/05/19 07:00 Carbon Dioxide 25.7 mmol/L (21.0-32.0) 03/05/19 07:00 Anion Gap 5.3 mmol/L (3-11) 03/05/19 07:00 BUN 12 mg/dL (7-18) 03/05/19 07:00 Creatinine 0.55 mg/dL (0.55-1.02) 03/05/19 07:00 Estimated GFR/1.73 m2 >= 60.00 (mL/min/1.73m2) 03/05/19 07:00 Glucose 96 mg/dL (70-100) 03/05/19 07:00 Calcium 7.4 mg/dL (8.5-10.1) L 03/05/19 07:00 Phosphorus 4.5 mg/dL (2.6-4.7) 03/01/19 06:20 Magnesium 1.2 mg/dL (1.8-2.4) L 03/05/19 07:00 Total Bilirubin 0.2 mg/dL (0.2-1.0) 02/28/19 08:25 AST 18 U/L (15-37) 02/28/19 08:25 ALT 18 U/L (12-78) 02/28/19 08:25 Alkaline Phosphatase 54 U/L (46-116) 02/28/19 08:25 C-Reactive Protein 9.79 mg/dL (0.0-0.3) H 03/03/19 06:30 C-React Prot High Sens 9.17 mg/L 02/24/19 06:45 Total Protein 4.6 g/dL (6.4-8.2) L 02/28/19 08:25 Albumin 2.2 g/dL (3.4-5.0) L 02/28/19 08:25 Lipase 67 U/L (73-393) L 02/22/19 07:43 TSH 5.32 uIU/mL (0.358-3.74) H 02/28/19 08:25 Patient ABO/Rh O Positive 02/28/19 08:25 Antibody Screen Negative 02/28/19 08:25
[2019-03-05] MEDS: MAGNESIUM SULFATE 1 GM/100 ML BAG IVPB (12:19)
--- NOTE | 2019-03-05 13:54 | NUTRITION ---
patient is not drinking ensure clear she has several collected in her room. I spoke with her and she said she just can't go it.We did try a CiB frappe with 4oz. of milk and 1/2 cup of vanilla ice cream. She was able to tolerate that. Although to much nini is not allowed on the post op diet that she is on. Thank you
--- NOTE | 2019-03-05 14:37 | CMPROGNOTE_ITS ---
Care Management Progress Note S/O: Idalia was sitting up in her recliner watching TV. Remains at acute status today. Stated that the routine was a bit off today. Her medications arrived at the same time as her breakfast. Took the medicine and then could not really eat any of the full liquids she received. She continues to receive IV fluids, TPN and antibiotics. She said she had at least been able to start learning about ostomy care. Started with becoming familiar with the bag and she showed me the one she was learning to use. Stated she expected herself to get well a lot faster than this and is not used to feeling so weak. The teaching r/t ostomy care will continue through home health when she is discharged. A: Idalia is a 68 year old female admitted with intestinal abscess which had been treated as an outpatient for the past four months with oral antibiotics and close follow up. She is now post op day 5 for the following procedures: 1. Exploratory Laparotomy with sigmoid resection and splenic flexure mobilization 2. Colostomy creation 3. Bilateral slapingoopherectomy 4. colon polyp removal P: Idalia is post op day 5. Idalia will return home with new home health orders for nursing, and wound management including new(stoma) ostomy care when she is medically ready for discharge. Home health is aware of referral and [facility] ed on her progress. Idalia may need a short SB1 stay related to prolonged hospitalization and need for PT and OT. She has family that will also provide assistance and support at home. Idalia will need education r/t wound management, stoma and ostomy care. CM will continue to provide ongoing support and discharge planning.
[2019-03-05] MEDS: Enoxaparin 40 MG/0.4 ML SYR SC (19:43)
[2019-03-06] MEDS: Normal Saline Flush 10 ML SYR IVP ×3 (00:34→08:17)
[2019-03-06 04:17] VITALS: BP 153/82; PULSE 94; RESP 18; TEMP 37.3; O2SAT 98
[2019-03-06] MEDS: FAMOTIDINE 20 MG/50 ML BAG 200 MG IVPB (05:46)
[2019-03-06 06:09] LABS: Bilirubin Negative (Negative); Blood Negative (Negative); Clarity Clear; Glucose Negative (Negative); Ketones Negative (Negative); Leukocyte Esterase Negative (Negative); Nitrite Negative (Negative); Specific Gravity 1.015 (1.005-1.025); Urobilinogen 0.2 EU/dL (Up TO 0.2); pH 8.5 (5-8)
[2019-03-06 06:53] LABS: Anion Gap 4.2 mmol/L (3-11); BUN 13 mg/dL (7-18); CO2 28.8 mmol/L (21.0-32.0); CREATININE 0.68 mg/dL (0.55-1.02); Calcium 8.9 mg/dL (8.5-10.1); Chloride 105 mmol/L (98-107); Glucose 107 mg/dL (70-100); Magnesium 1.7 mg/dL (1.8-2.4); Potassium 3.9 mmol/L (3.5-5.1); Sodium 138 mmol/L (136-145)
[2019-03-06 07:10] VITALS: BP 144/77; PULSE 91; RESP 14; TEMP 36.7; O2SAT 99
--- NOTE | 2019-03-06 08:12 | PGE_ITS ---
Documented by User: ROSA Gerard 03/06/19 08:15 Date of Service Date of service: 03/06/19 Time of Service: 08:08 Assessment and Plan (1) Hypokalemia: Current visit: Yes Status: Acute Currently getting PO Magnesium and Potassium daily. (2) 2+ pitting edema: Current visit: No Status: Acute (3) Hypomagnesemia: Current visit: No Status: Acute (4) S/P exploratory laparotomy: Current visit: No Status: Acute POD #6 Tolerating normal diet also continues to be on TPN secondary to poor PO intake. Discussed trying ensure or boost to increase protein intake. Lasix secondary to fluid retention. Activity as tolerated. Continue to work with PT and OT (5) Hypothyroidism: Current visit: No Status: Acute Currently on IV Levothyroxine. Will discuss with the [employer] supervisor surgeon regarding transitioning to PO. Qualifiers: Hypothyroidism type: acquired Qualified Code(s): E03.9 - Hypothyroidism, unspecified Subjective Interval history since last seen: My stomach is sore when getting up and out of bed and I have been getting up out of bed multiple times a night to use the restroom. She has been increasing her PO intake with meals, however reports I am just not hungry. She has been working with PT and is eager to be d/c home. Exam Const General: cooperative and comfortable Orientation: alert and oriented x3 Resp Effort & Inspection: normal respiratory effort, no audible wheezes and no cough GI Inspection: normal to inspection and incision (Midline. No erythema, warmth or induration. ) Palpation: soft, no guarding, nontender and No ascites Auscultation: normal bowel sounds Objective Objective Clinical Data: Abnormal lab results 03/06/19 03/06/19 Range/Units 05:40 06:10 Glucose 107 H (70-100) mg/dL Magnesium 1.7 L (1.8-2.4) mg/dL Urine pH 8.5 H (5-8) Vital Signs Temperature 36.7 C 03/06/19 07:10 Temperature Source Tympanic 03/06/19 07:10 Pulse 91 H 03/06/19 07:10 Pulse Rhythm Regular 03/05/19 19:20 Pulse 81 03/03/19 07:57 Respiratory Rate 14 03/06/19 07:10 Respiratory Effort Non-Labored 03/05/19 19:20 Respiratory Depth Normal 03/05/19 19:20 Respiratory Pattern Normal 03/05/19 19:20 Blood Pressure 144/77 H 03/06/19 07:10 Blood Pressure Mean 88 03/03/19 07:59 Blood Pressure Position Supine 03/03/19 07:59 Pulse Oximetry 99 03/06/19 07:10 Respiratory End-tidal CO2 29 02/28/19 15:40 Oxygen Delivery Method Room Air 03/06/19 07:10 Oxygen Flow Rate 0 03/06/19 07:10 Fraction of Inspired Oxygen (FIO2) 2 03/02/19 03:00 Pain Level 0 03/05/19 11:15 Comment 02/27/19 11:51 Intake & Output 03/05/19 03/06/19 03/06/19 18:59 06:59 18:59 Intake Total 2300 / 2617.396 317.396 / 2617.396 Output Total 2600 / 6800 4200 / 6800 Balance -300 / -4182.604 -3882.604 / -4182.604 Weight 76 kg Intake: IV 2060 / 2377.396 317.396 / 2377.396 Oral 240 / 240 Output: Urine 2450 / 6300 3850 / 6300 Stool 150 / 500 350 / 500 Other: Urine Color Yellow Pale Urine Appearance Clear Clear Urine Odor Normal None Comment hat in toilet Voiding Methods Toilet Toilet Laboratory Results WBC 7.08 k/cumm (4.4-10.8) 03/05/19 07:00 RBC 2.84 m/cumm (4.00-5.20) L 03/05/19 07:00 Hgb 9.4 g/dL (12.0-15.5) L 03/05/19 07:00 Hct 28.6 % (36.0-46.0) L 03/05/19 07:00 MCV 100.7 fL (80-95) H 03/05/19 07:00 MCH 33.1 pg (27.0-33.0) H 03/05/19 07:00 MCHC 32.9 g/dL (32.0-36.0) 03/05/19 07:00 RDW 12.4 % (11.7-14.6) 03/05/19 07:00 Plt Count 311 x1000/uL (130-400) D 03/05/19 07:00 MPV 8.9 fL (8.0-11.0) 03/05/19 07:00 Immature Gran % 1.1 03/05/19 07:00 Neutrophils % 64.7 03/05/19 07:00 Lymphocytes % 10.5 03/05/19 07:00 Monocytes % 15.7 03/05/19 07:00 Eosinophils % 7.6 03/05/19 07:00 Basophils % 0.4 03/05/19 07:00 Absolute Neutrophils 4.58 k/cumm (1.2-6.7) 03/05/19 07:00 Absolute Lymphocytes 0.74 k/cumm (1.2-3.4) L 03/05/19 07:00 Absolute Monocytes 1.11 k/cumm (0.11-0.7) H 03/05/19 07:00 Absolute Eosinophils 0.54 k/cumm (0.0-0.7) 03/05/19 07:00 Absolute Basophils 0.03 k/cumm (0.0-0.2) 03/05/19 07:00 PT 9.9 sec (9.3-11.0) 02/22/19 07:43 INR 1.0 (0.9-1.1) 02/22/19 07:43 APTT 30.3 sec (21.0-31.4) 02/22/19 07:43 Sodium 138 mmol/L (136-145) 03/06/19 06:10 Potassium 3.9 mmol/L (3.5-5.1) D 03/06/19 06:10 Chloride 105 mmol/L (98-107) 03/06/19 06:10 Carbon Dioxide 28.8 mmol/L (21.0-32.0) 03/06/19 06:10 Anion Gap 4.2 mmol/L (3-11) 03/06/19 06:10 BUN 13 mg/dL (7-18) 03/06/19 06:10 Creatinine 0.68 mg/dL (0.55-1.02) 03/06/19 06:10 Estimated GFR/1.73 m2 >= 60.00 (mL/min/1.73m2) 03/06/19 06:10 Glucose 107 mg/dL (70-100) H 03/06/19 06:10 Calcium 8.9 mg/dL (8.5-10.1) 03/06/19 06:10 Phosphorus 4.5 mg/dL (2.6-4.7) 03/01/19 06:20 Magnesium 1.7 mg/dL (1.8-2.4) L 03/06/19 06:10 Total Bilirubin 0.2 mg/dL (0.2-1.0) 02/28/19 08:25 AST 18 U/L (15-37) 02/28/19 08:25 ALT 18 U/L (12-78) 02/28/19 08:25 Alkaline Phosphatase 54 U/L (46-116) 02/28/19 08:25 C-Reactive Protein 9.79 mg/dL (0.0-0.3) H 03/03/19 06:30 C-React Prot High Sens 9.17 mg/L 02/24/19 06:45 Total Protein 4.6 g/dL (6.4-8.2) L 02/28/19 08:25 Albumin 2.2 g/dL (3.4-5.0) L 02/28/19 08:25 Lipase 67 U/L (73-393) L 02/22/19 07:43 TSH 5.32 uIU/mL (0.358-3.74) H 02/28/19 08:25 Urine Color Yellow (Yellow) 03/06/19 05:40 Urine Clarity Clear 03/06/19 05:40 Urine pH 8.5 (5-8) H 03/06/19 05:40 Ur Specific [place] 1.015 (1.005-1.025) 03/06/19 05:40 Urine Protein Negative mg/dL (Negative) 03/06/19 05:40 Urine Ketones Negative mg/dL (Negative) 03/06/19 05:40 Urine Blood Negative (Negative) 03/06/19 05:40 Urine Nitrite Negative (Negative) 03/06/19 05:40 Urine Bilirubin Negative (Negative) 03/06/19 05:40 Urine Urobilinogen 0.2 EU/dL (Up TO 0.2) 03/06/19 05:40 Ur Leukocyte Esterase Negative (Negative) 03/06/19 05:40 Urine Glucose Negative mg/dL (Negative) 03/06/19 05:40 Patient ABO/Rh O Positive 02/28/19 08:25 Antibody Screen Negative 02/28/19 08:25 Documented by User: Maris Motley DO 03/06/19 15:44 Assessment and Plan (1) Diverticulitis of large intestine with abscess: Current visit: Yes Status: Acute pt seen adn examined. agree w/ above change po thyroid replacements stop Lasix electrolyte replacement cont PT will need home pt and home health pt has not even been emptying ostomy and needs to get more familiar with care can shower- cover central line. Qualifiers: Diverticulitis bleeding: without bleeding Qualified Code(s): K57.20 - Diverticulitis of large intestine with perforation and abscess without bleeding
[2019-03-06] MEDS: Magnesium Oxide 400 MG TAB PO ×3 (08:16→19:55)
[2019-03-06] MEDS: Furosemide 20 MG/2 ML VIAL IVP (08:16)
[2019-03-06] MEDS: Potassium Chloride 20 MEQ TABCR 40 MEQ PO (08:16)
[2019-03-06] MEDS: Lisinopril 20 MG TAB PO (08:16)
[2019-03-06] MEDS: Levothyroxine 100 MCG VIAL 75 MCG IVP (08:17)
--- NOTE | 2019-03-06 09:34 | PDOC.CMPRO ---
- If Service Date Differs Date of service: 03/06/19 Time of Service: 09:34 Care Management Progress Note S/O: CM met with Idalia in the room she is sitting up in the chair. CM discussed confidence level related to going home she states its about a 4 (would like to see her at least at a 7). Idalia does not feel ability to care for her stoma and change the ostomy went well today. CM discussed having Idalia identifying a person she could turn to for support in addition to home health services. She identifies her daughter in law as a person of support. She will contact her and see if she can come in for a teach today.CM met with primary nurse to review the plan and nursing will provide teaching again this afternoon with patient and her support. Home health has been updated with plans for discharge. Per provider anticipate Idalia will be discharged in the next 48 hours and she will be weaned off TPN. Idalia wants to return home she states she is on one level and she feels she can manage at home. CM discussed having support including counseling to manage all the recent changes in her life, emotional and physical. Idalia states she has met with [facility] in the past. She states she knows how to contact [facility] if needed. CM offered support and resource in the area that may offer additional support in the community. A: Idalia is a 68 year old female admitted with intestinal abscess which had been treated as an outpatient for the past four months with oral antibiotics and close follow up. She is now post op day 5 for the following procedures: 1. Exploratory Laparotomy with sigmoid resection and splenic flexure mobilization 2. Colostomy creation 3. Bilateral slapingoopherectomy 4. colon polyp removal P: Idalia is post op day 6. Idalia will return home with new home health orders for nursing, and wound management including new(stoma) ostomy care when she is medically ready for discharge. Home health is aware of referral and updated on her progress. Idalia will need education r/t wound management, stoma and ostomy care continued through home health when she is discharged. CM will continue to provide ongoing support and discharge planning.
--- NOTE | 2019-03-06 10:42 | PT.INTREAT ---
Date of service: 03/06/19 Time of Service: 10:42 PT Notes 03/06/19 SUBJECTIVE: Ruthann stating she feels good. She was just washed up. She would like to go outside and walk if possible. She also states she struggled to get into bed and is wondering if we can practice this. OBJECTIVE: Agreeable to PT treatment. TRANSFERS Sit to stand: S Stand to sit: S sit to supine: S with cues for appropriate completion of log roll technique GAIT Device: No AD, pushed IV pole Weight bearing: Full Assist: S Distance: 150'x2 Deviation: Outside walking BED MOBILITY: Further instruct pt in bed mobility and log roll technique. She performs this well with cues and without significant drawing on her incision. She did not require rails today and her bed was flat. ASSESSMENT: Making gains functionally in terms of bed transfers and gait. No LOB noted without use of AD. She does not feeling some fatigue at the end of her walk today. We will continue to work on log roll maneuver for better comfort getting in and out of bed. PLAN: Continue current POC progressing toward's established goals. Treatment time: 30 [id number] Annette Lai, MARITZA
--- NOTE | 2019-03-06 10:47 | PTTR_ITS ---
Date of service: 03/06/19 Time of Service: 10:42 PT Notes 03/06/19 SUBJECTIVE: Ruthann stating she feels good. She was just washed up. She would like to go outside and walk if possible. She also states she struggled to get into bed and is wondering if we can practice this. OBJECTIVE: Agreeable to PT treatment. TRANSFERS Sit to stand: S Stand to sit: S sit to supine: S with cues for appropriate completion of log roll technique GAIT Device: No AD, pushed IV pole Weight bearing: Full Assist: S Distance: 150'x2 Deviation: Outside walking BED MOBILITY: Further instruct pt in bed mobility and log roll technique. She performs this well with cues and without significant drawing on her incision. She did not require rails today and her bed was flat. ASSESSMENT: Making gains functionally in terms of bed transfers and gait. No LOB noted without use of AD. She does not feeling some fatigue at the end of her w alk today. We will continue to work on log roll maneuver for better comfort getting in and out of bed. PLAN: Continue current POC progressing toward's established goals. Treatment time: 30 [id number] Annette Lai, POLYGRAPH EXAMINER
--- NOTE | 2019-03-06 11:10 | OT.INTREAT ---
Date of service: 03/06/19 Time of Service: 09:15 Occupational Therapy Notes Occupational Therapy Inpatient Treatment Note Date: 03/06/19 PRECAUTIONS: Fall, Standard SUBJECTIVE: Pt was sitting in chair when OT arrived. She was agreeable to OT session. OBJECTIVE: PAIN:Pain in abdomen when performing functional mobility FUNCTIONAL MOBILITY Supine-sit: (I) Sit-supine: (I) Sit-stand: (S) Stand-sit: (S) Bathroom -Chair: (S) Chair-Bathroom: (S) BATHING: Upper Body: In supine max (A) washing hair (performed with MECHANICAL SERVICE TECHNICIAN), in sitting position with max (A) set up (I) with face, (B) UE, and abdomen. MAx (A) back. Lower Body: Sitting in chair max (A) for LE DRESSING: Sitting in chair Upper Extremity: Min (A) don and doffing hospital gown Lower Extremity: Max (A) don and doffing (B) socks and VINCENT stockings, Min (A) for donning underwear GROOMING: Standing at sink, (I) with brushing teeth and hair TOILETING: Device: Toilet Assist: (I) ASSESSMENT/PLAN: Pt functionally is performing ADLs and functional mobility with increased (I). She is not utilizing a FWW at this time with normal standing balance both statically and dynamically. Pt is still having difficulty with LE dressing and bathing but this is d/t to discomfort s/p surgery. Pt continues to progress with her overall (I) in ADLs. OT recommends that pt return home with services when medically cleared per MD. TREATMENT CODES/TIME: 25060x3, 45 minutes (09:15) Dolores Savage OTR/[facility]
--- NOTE | 2019-03-06 11:19 | OTTR_ITS ---
Date of service: 03/06/19 Time of Service: 09:15 Occupational Therapy Notes Occupational Therapy Inpatient Treatment Note Date: 03/06/19 PRECAUTIONS: Fall, Standard SUBJECTIVE: Pt was sitting in chair when OT arrived. She was agreeable to OT session. OBJECTIVE: PAIN:Pain in abdomen when performing functional mobility FUNCTIONAL MOBILITY Supine-sit: (I) Sit-supine: (I) Sit-stand: (S) Stand-sit: (S) Bathroom -Chair: (S) Chair-Bathroom: (S) BATHING: Upper Body: In supine max (A) washing hair (performed with CHIEF LIBRARIAN WORK WITH BLIND), in sitting position with max (A) set up (I) with face, (B) UE, and abdomen. MAx (A) back. Lower Body: Sitting in chair max (A) for LE DRESSING: Sitting in chair Upper Extremity: Min (A) don and doffing hospital gown Lower Extremity: Max (A) don and doffing (B) socks and VINCENT stockings, Min (A) for donning underwear GROOMING: Standing at sink, (I) with brushing teeth and hair TOILETING: Device: Toilet Assist: (I) ASSESSMENT/PLAN: Pt functionally is performing ADLs and functional mobility with increased (I). She is not utilizing a FWW at this time with normal standing balance both statically and dynamically. Pt is still having difficulty with LE dressing and bathing but this is d/t to discomfort s/p surgery. Pt continues to progress with her overall (I) in ADLs. OT recommends that pt return home with services when medically cleared per MD. TREATMENT CODES/TIME: [id number], 45 minutes (09:15) Dolores Savage OTR/[facility]
--- NOTE | 2019-03-06 11:21 | PDOC.HHF2F ---
1. Encounter Date and Reason I certify that KEVYN STEELE was seen by Rosita Tapia MD on 03/06/19 and that I had a [id number] encounter with this patient that meets the physician face to face encounter requirements. 2. Clinical Findings Supporting Skilled Need and Homebound Status I certify that home health services are medically necessary, include either intermittent correction and/or physical/speech therapy, and that this patient is homebound in that absences from the home require considerable and taxing effort and are infrequent or of short duration, or are attributable to the need to receive medical care. [X] (a) Attached documentation from encounter provides clinical findings supporting skilled need and homebound status (including what assistance patient requires to leave the home). The encounter with the patient was in whole, or in part, for the following medical condition, which is the primary reason for home health care: DIVERTICULITIS WITH ABSCESS Long-Term: Patient with new Colostomy and midline incision. Please assist patient with Ostomy care and midline incision care. Patient is homebound except for visits to MD. Physical Therapy: Speech Therapy: Homebound: 3. Certification and Authentication I certify that I composed the above information based on my clinical judgement relating to this patient's medical condition and, if applicable, clinical findings communicated to me by the NPP or inpatient physician who performed the Home Health Referral. All further orders will be obtained through (Community Based Physician - PCP)
[2019-03-06 12:47] VITALS: BP 126/72; PULSE 82; RESP 14; TEMP 36.3; O2SAT 99
--- NOTE | 2019-03-06 15:58 | PT.INTREAT ---
Date of service: 03/06/19 Time of Service: 15:58 PT Notes 03/06/19 SUBJECTIVE: Ruthann stating she may go home tomorrow or Wednesday. She states she feels good this afternoon after getting a short nap. OBJECTIVE: Agreeable to PT treatment. TRANSFERS Sit to stand: I Stand to sit: I GAIT Device: No device, pushes IV pole at times Weight bearing: Full Assist: I Distance: 200'+150' Deviation: outside ambulation THEREX: Review seated LAQ and hip flexion to be performed throughout the day. ASSESSMENT: Pt increasing gait distance and speed. No increase in pain in her abdomen with gait. We will review log roll technique again tomorrow to transfer safely in and out of bed. PLAN: As above. Treatment time: 20' [id number] Annette Lai PTA
[2019-03-06 18:15] VITALS: BP 122/71; PULSE 92; RESP 17; TEMP 37.1; O2SAT 97
[2019-03-06] MEDS: Famotidine 20 MG TAB PO (19:55)
[2019-03-06] MEDS: Enoxaparin 40 MG/0.4 ML SYR SC (19:55)
[2019-03-06 23:38] VITALS: BP 130/73; PULSE 91; RESP 16; TEMP 37.1; O2SAT 97
[2019-03-06 23:42] VITALS: O2SAT 97
[2019-03-07 03:40] VITALS: BP 137/76; PULSE 90; RESP 18; TEMP 37.6; O2SAT 97
[2019-03-07] MEDS: Levothyroxine 125 MCG TAB PO (05:39)
[2019-03-07 07:03] LABS: HCT 27.5 % (36.0-46.0); Mean Corp. HGB Concentration 32.7 g/dL (32.0-36.0); Mean Corpuscular Hemoglobin 33.3 pg (27.0-33.0); Mean Corpuscular Volume 101.9 fL (80-95); Platelet Count 327 x1000/uL (130-400); RBC Distribution Width 12.7 % (11.7-14.6); White Blood Cell Count 7.53 k/cumm (4.4-10.8)
[2019-03-07 07:19] LABS: Anion Gap 5.5 mmol/L (3-11); BUN 11 mg/dL (7-18); CO2 28.5 mmol/L (21.0-32.0); CREATININE 0.73 mg/dL (0.55-1.02); Calcium 9.2 mg/dL (8.5-10.1); Chloride 103 mmol/L (98-107); Glucose 97 mg/dL (70-100); Magnesium 1.6 mg/dL (1.8-2.4); Potassium 3.9 mmol/L (3.5-5.1); Sodium 137 mmol/L (136-145)
[2019-03-07 07:20] LABS: PHOSPHORUS 2.6 mg/dL (2.6-4.7)
[2019-03-07 08:20] VITALS: BP 112/69; PULSE 94; RESP 22; TEMP 36; O2SAT 96
[2019-03-07] MEDS: Famotidine 20 MG TAB PO (09:26)
[2019-03-07] MEDS: Allopurinol 100 MG TAB 200 MG PO (09:26)
[2019-03-07] MEDS: Lisinopril 20 MG TAB PO (09:26)
[2019-03-07] MEDS: Potassium Chloride 20 MEQ TABCR 40 MEQ PO (09:26)
--- NOTE | 2019-03-07 10:13 | OT.INDS ---
Date of service: 03/07/19 Time of Service: 10:13 Occupational Therapy Notes Occupational Therapy Inpatient Discharge Summary Date: 03/07/19 Dates of Service: 03/01/19-03/07/19 Referring Doctor: ROSA Gerard OT Orders: Eval and Treat Precautions: Standard PATIENT PROFILE/ADMITTING DIAGNOSIS: Pt is a 68 year old female who was admitted through the ER on 02/12/19 for diverticulitis of large intestine with a sigmoid abscess. Pt had surgery on 02/28/19 for colostomy creation, (B) slapingoophrectomy and colon polyp removal. 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 She has 3 steps to enter if she goes through her garage and 4 steps to go through the front of her home. She has a one story home with a finished basement which she does not have to go down into. She has two bathrooms, one with a tub/shower combination and one with a walk in shower. She does not have a shower bench although OT will continue to assess the need for this. Pt is totally (I) at home with all ADLs/IADLs. She is (I) with community mobility. She has a son and daughter. She notes that she retired early to take care of her mother and brother who have recently passed. She is very (I) and walks 45 minutes a day with a neighbor. Pt takes pride in her (I) and is highly motivated to return to her premorbid level of function. Equipment owned/DME: None THIS DOCUMENT SERVES A SUMMARY OF CARE NO SKILLED OT SERVICES PROVIDED FOR THIS DOCUMENTATION SUBJECTIVE: NT OBJECTIVE: Dates of Service: 03/01/19-03/07/19 ROM: RUE AROM WNL L UE AROM WNL STRENGTH: RUE 4/5 throughout globally LUE 4/5 throughout globally FUNCTIONAL MOBILITY/ADLS: Based on tx from 03/06/19, no skilled OT services provided for this documentation. Supine-sit: (I) Sit-supine: (I) Sit-stand: (S) Stand-sit: (S) Bathroom -Chair: (S) Chair-Bathroom: (S) BATHING: Upper Body: (I) with face, (B) UE, and abdomen. Max (A) back. Lower Body: Sitting in chair mod (A) for LE DRESSING: Sitting in chair Upper Extremity: Min (A) [facility] d/t IVs Lower Extremity: Max (A) don and doffing (B) socks and VINCENT stockings, Min (A) for donning underwear GROOMING: Standing at sink, (I) with brushing teeth and hair TOILETING: Device: Toilet Assist: (I) BALANCE: Static sitting- Normal Dynamic Sitting- Normal Static Standing- Normal Dynamic Standing-Good ASSESSMENT: Patient is a 68-year-old female referred to occupational therapy services with diagnosis of diverticulitis of large intestine with a sigmoid abscess. Pt had surgery on 02/28/19 for colostomy creation, (B) slapingoophrectomy and colon polyp removal. Pt was seen for 4 skilled OT services. She functionally was able to demonstrate increased (I) in her ADLS. She is walking without an (A) device. She is (I) in the bathroom. She is (I) with bathing and dressing. She does sometimes present with difficulty with donning and doffing (B) socks however this is more d/t surgical pain and not an overall deficit. OT recommends that pt return home when medically cleared per MD with HH services. GOALS- 1. Transfers LRD, SBA- Met 2. Dressing- sitting in chair (I) UE/LE- Met 3. Bathing-sitting in chair (I) - Met 4. Toileting- on commode (I)- Met 5. Eating- (I) sitting position - Met 6. Grooming- Standing at sink with LRD (I) brushing teeth and hair- Met PLAN OF CARE/TREATMENT PLAN: Discharge from skilled OT services. DISCHARGE RECOMMENDATIONS- OT recommends that pt return home with HH services when medically cleared per MD. TREATMENT TIME/MINUTES/CODES- N/A Dolores Savage OTR/L [facility]
--- NOTE | 2019-03-07 10:14 | W.PM.PROGNOT ---
Date of Service Date of service: 03/07/19 Time of Service: 10:15 Assessment and Plan (1) S/P exploratory laparotomy: Current visit: No Status: Acute A\\ Doing very well. POD#7 s/p Ex-lap, sigmoid resection and ostomy creation, as well as Bilateral oopherectomy Path- all benign Cytology pending P\\ D/C home today on a regular diet. Discussed high protein and a variety of vegetables and fruits. Drink plenty of fluids as the stool is still very watery and she may get dehydfrated a lot easier. Follow up Wednesday to have ari removed. Home Health ordered Subjective Interval history since last seen: Doing well. Has been emptying her ostomy bag on her own. Has not changed the bag yet. No N/V. Eating a regular diet. urinary incontinence is getting better. Edema is much better. pain is controlled on Tylenol and ibuprofen only. Has been working with PT/OT and is doing well with that. Exam Resp Effort & Inspection: normal respiratory effort Auscultation: clear to auscultation bilaterally Cardio Rate: regular rate Rhythm: regular rhythm GI Inspection: incision (ari are intact. No discharge. Some bruising identified) Palpation: soft, no hepatosplenomegaly and nontender Auscultation: normal bowel sounds Other: Ostomy- pink and there is stool in the bag Abdomen image: 1. incision 2. ostomy Objective Objective Clinical Data: Abnormal lab results 03/07/19 03/07/19 Range/Units 06:20 06:20 RBC 2.70 L (4.00-5.20) m/cumm Hgb 9.0 L (12.0-15.5) g/dL Hct 27.5 L (36.0-46.0) % MCV 101.9 H (80-95) fL MCH 33.3 H (27.0-33.0) pg Magnesium 1.6 L (1.8-2.4) mg/dL Vital Signs Temperature 96.8 F L 03/07/19 08:20 Temperature Source Temporal Artery Scan 03/07/19 08:20 Pulse 94 H 03/07/19 08:20 Pulse Rhythm Regular 03/07/19 07:43 Pulse 81 03/03/19 07:57 Respiratory Rate 22 03/07/19 08:20 Respiratory Effort 03/07/19 07:43 Respiratory Depth Normal 03/06/19 19:37 Respiratory Pattern Normal 03/06/19 19:37 Blood Pressure 112/69 03/07/19 08:20 Blood Pressure Mean 88 03/03/19 07:59 Blood Pressure Position Supine 03/03/19 07:59 Pulse Oximetry 96 03/07/19 08:20 Respiratory End-tidal CO2 29 02/28/19 15:40 Oxygen Delivery Method Room Air 03/07/19 08:20 Oxygen Flow Rate 0 03/07/19 08:20 Fraction of Inspired Oxygen (FIO2) 2 03/02/19 03:00 Pain Level 0 03/05/19 11:15 Comment 02/27/19 11:51 Intake & Output 03/06/19 03/06/19 03/07/19 11:59 23:59 11:59 Intake Total 2005.979 / 2867.479 860.5 / 2867.479 443 / 443 Output Total 2950 / 4850 1900 / 4850 1200 / 1200 Balance -943.021 / -1982.521 -1039.5 / -1982.521 -757 / -757 Weight 167 lb 8.821 oz 152 lb 5.431 oz Intake: IV 1756.979 / 2127.479 370.5 / 2127.479 43 / 43 Oral 250 / 740 490 / 740 400 / 400 Output: Urine 2650 / 4450 1800 / 4450 1200 / 1200 Stool 300 / 400 100 / 400 Other: Urine Color Yellow Pale Pale Yellow Yellow Urine Appearance Clear Clear Clear Urine Odor None None None Comment hat in toilet Voiding Methods Toilet Toilet Toilet Urinal Diaper Laboratory Results WBC 7.53 k/cumm (4.4-10.8) 03/07/19 06:20 RBC 2.70 m/cumm (4.00-5.20) L 03/07/19 06:20 Hgb 9.0 g/dL (12.0-15.5) L 03/07/19 06:20 Hct 27.5 % (36.0-46.0) L 03/07/19 06:20 MCV 101.9 fL (80-95) H 03/07/19 06:20 MCH 33.3 pg (27.0-33.0) H 03/07/19 06:20 MCHC 32.7 g/dL (32.0-36.0) 03/07/19 06:20 RDW 12.7 % (11.7-14.6) 03/07/19 06:20 Plt Count 327 x1000/uL (130-400) 03/07/19 06:20 MPV 9.0 fL (8.0-11.0) 03/07/19 06:20 Immature Gran % 1.1 03/05/19 07:00 Neutrophils % 64.7 03/05/19 07:00 Lymphocytes % 10.5 03/05/19 07:00 Monocytes % 15.7 03/05/19 07:00 Eosinophils % 7.6 03/05/19 07:00 Basophils % 0.4 03/05/19 07:00 Absolute Neutrophils 4.58 k/cumm (1.2-6.7) 03/05/19 07:00 Absolute Lymphocytes 0.74 k/cumm (1.2-3.4) L 03/05/19 07:00 Absolute Monocytes 1.11 k/cumm (0.11-0.7) H 03/05/19 07:00 Absolute Eosinophils 0.54 k/cumm (0.0-0.7) 03/05/19 07:00 Absolute Basophils 0.03 k/cumm (0.0-0.2) 03/05/19 07:00 PT 9.9 sec (9.3-11.0) 02/22/19 07:43 INR 1.0 (0.9-1.1) 02/22/19 07:43 APTT 30.3 sec (21.0-31.4) 02/22/19 07:43 Sodium 137 mmol/L (136-145) 03/07/19 06:20 Potassium 3.9 mmol/L (3.5-5.1) 03/07/19 06:20 Chloride 103 mmol/L (98-107) 03/07/19 06:20 Carbon Dioxide 28.5 mmol/L (21.0-32.0) 03/07/19 06:20 Anion Gap 5.5 mmol/L (3-11) 03/07/19 06:20 BUN 11 mg/dL (7-18) 03/07/19 06:20 Creatinine 0.73 mg/dL (0.55-1.02) 03/07/19 06:20 Estimated GFR/1.73 m2 >= 60.00 (mL/min/1.73m2) 03/07/19 06:20 Glucose 97 mg/dL (70-100) 03/07/19 06:20 Calcium 9.2 mg/dL (8.5-10.1) 03/07/19 06:20 Phosphorus 2.6 mg/dL (2.6-4.7) 03/07/19 06:20 Magnesium 1.6 mg/dL (1.8-2.4) L 03/07/19 06:20 Total Bilirubin 0.2 mg/dL (0.2-1.0) 02/28/19 08:25 AST 18 U/L (15-37) 02/28/19 08:25 ALT 18 U/L (12-78) 02/28/19 08:25 Alkaline Phosphatase 54 U/L (46-116) 02/28/19 08:25 C-Reactive Protein 9.79 mg/dL (0.0-0.3) H 03/03/19 06:30 C-React Prot High Sens 9.17 mg/L 02/24/19 06:45 Total Protein 4.6 g/dL (6.4-8.2) L 02/28/19 08:25 Albumin 2.2 g/dL (3.4-5.0) L 02/28/19 08:25 Lipase 67 U/L (73-393) L 02/22/19 07:43 TSH 5.32 uIU/mL (0.358-3.74) H 02/28/19 08:25 Urine Color Yellow (Yellow) 03/06/19 05:40 Urine Clarity Clear 03/06/19 05:40 Urine pH 8.5 (5-8) H 03/06/19 05:40 Ur Specific [place] 1.015 (1.005-1.025) 03/06/19 05:40 Urine Protein Negative mg/dL (Negative) 03/06/19 05:40 Urine Ketones Negative mg/dL (Negative) 03/06/19 05:40 Urine Blood Negative (Negative) 03/06/19 05:40 Urine Nitrite Negative (Negative) 03/06/19 05:40 Urine Bilirubin Negative (Negative) 03/06/19 05:40 Urine Urobilinogen 0.2 EU/dL (Up TO 0.2) 03/06/19 05:40 Ur Leukocyte Esterase Negative (Negative) 03/06/19 05:40 Urine Glucose Negative mg/dL (Negative) 03/06/19 05:40 Patient ABO/Rh O Positive 02/28/19 08:25 Antibody Screen Negative 02/28/19 08:25
--- NOTE | 2019-03-07 10:25 | DSE_ITS ---
Date of service: 03/07/19 Time of Service: 10:23 DS: Diagnosis Discharge Diagnosis (1) S/P exploratory laparotomy: Status: Acute (2) Diverticulitis of large intestine with abscess: Status: Acute Discharge Plan Disposition Patient Disposition: HOME W/HOME HEALTH SERVICE Condition: Stable Discharge Details Reason For Visit: DIVERTICULITIS WITH ABSCESS Admit Date/Time: 02/22/19 10:44 Admit Provider: Rosita Tapia Attending Provider: Rosita Tapia Primary Care Provider: Deepthi Whitehead Hospital Course Hospital Course: Mrs. Manzo was admitted on 02/22/19 for Diverticulitis of large intestine with abscess treated as outpatient for 5 months. She had an abscess drained at [facility] in August. She was then treated with po antibiotics. She had been on po antibiotics on and off since August. On admission her CT scan showed severe inflammation as well as a 3 cm abscess. She was admitted for a trial of IV antibiotics and drainage procedure at [facility]. She went down to [facility] on 02/23/19 for drainage procedure. On Wednesday 02/28 she had not improved significantly clinically. Repeat CT scan done on Monday 02/26 showed resolution of the abscess and improvement of her inflammation, but there was twice as much ascitis in her abdomen. On Wednesday 02/28 she continues to complain of bloating an d she only passing flatus occasionally. There was minimal stool. Patient was taken to the OR for exploratory laparotomy and sigmoid resection with Colostomy creation. The ascitis was sent for cytology, which is still pending at this time). There were bilateral ovarian cysts noted and so Bilateral oopherectomies were done as well. Pathology showed benign cysts oin the ovaries and sigmoid colon showed diverticulitis with fibrosis. There was no malignancy identified. Patient was admitted to the ICU for 3 days. Her NG tube was removed after 24 hours and on POD#2 she was started on some clear liquids and this was slowly advanced to a high protein Diet. Due to her malnutrition patient was also started on TPN on POD#1. TPN was weaned on POD #6. Patient had an epidural in place for 4 days and then it was removed. Gomez was kept in place until the epidural was removed. She is having some incontinence of urine, but this is getting better. Repeat UA was negative for infection. While hospitalized her Potassium and magnesium were low and these were replenished as needed through her IV. Mrs. Manzo started emptying her ostomy bag. She has not yet changed the bag so she will be discharged to home with home sravani. Home Meds and New Rx's Prescriptions: New acetaminophen [Tylenol] 325 mg Tablet 650 mg PO Q6H PRN PRNQty: 30 RF: 0 ibuprofen 200 mg tablet 400 mg PO QID PRN (Reason: pain) Qty: 30 RF: 0 Continued cholecalciferol (vitamin D3) 1,000 unit capsule 1,000 unit PO DAILY RF: 0 calcium carbonate-vitamin D3 1,000 mg(2,500 mg)-800 unit tablet PO DAILY RF: 0 allopurinol 100 mg tablet 200 mg PO DAILY Qty: 180 RF: 3 diazepam 5 mg tablet 5 mg PO BID Qty: 6 RF: 0 levothyroxine 125 mcg capsule 125 mcg PO DAILY Qty: 90 RF: 3 lisinopril 20 mg tablet 20 mg PO DAILY Qty: 90 RF: 3 Discontinued polyethylene glycol 3350 [Miralax] 17 gram powder in packet 17 gm PO DAILY RF: 0 Discharge Instructions Instructions: Colostomy Care (GEN) Additional Instructions: Activity at Home after surgery: 1. Make sure you walk outside at least 4 times per day 2. You should be able to climb a flight of stairs 3. No driving while in pain or taking pain medications 4. No strenuous activity or heavy lifting for 6 weeks Diet, Nutrition, & wound healin. Avoid alcohol until after you are recovered from your surgery 2. Make sure to eat plenty of lean protein (meat, fish, eggs, cottage cheese, beans) 3. Eat a variety of fruits and vegetables. Eat plenty of high fiber foods to avoid constipation. 4. Drink plenty of liquids to stay hydrated and avoid constipation (about 1.5 to 2 L) Pain Medications: 1. Alternate Tylenol 650 mg every 6 hours as needed and Ibuprofen 600 mg every 6 hours as needed For Constipation: 1. MiraLax as needed for constipation Other: 1. You may shower daily. Do not scrub the incisions 2. Do not soak the incisions for 1 week 3. You may alternate ice and heat as needed for pain and swelling Wound Care: 1. Keep the incisions clean and dry Other Services that may have been ordered: 0 Home Health- to help with dressing changes Please call our office if you develop: 1. Fevers >101.5 2. Nausea or Vomiting 3. Worsening pain 4. Redness and thick discharge from the wounds If after hours please call the Hospital at and ask to speak to the on-call surgeon Referrals: Deepthi Whitehead NP [Primary Care Provider] - (2-3 weeks post op) Rosita Tapia MD [ [facility] STAFF PHYSICIAN] - 03/10/19 1:30 pm Activity:: No lifting, pulling or pushing >20 lb x 6 weeks Equipment/Supplies:: ostomy supplies Diet:: high protein Discharge Orders Discharge Orders: Discharge Order (Routine); Ordered 03/07/19 Ordered By: Rosita Tapia Exam Resp Effort & Inspection: normal respiratory effort Auscultation: clear to auscultation bilaterally Cardio Rate: regular rate Rhythm: regular rhythm GI Inspection: incision (c/d/i) Palpation: soft and nontender Auscultation: normal bowel sounds DS: Data Vitals/I&O Vitals and I&O: Vital Signs Temperature 96.8 F L 03/07/19 08:20 Temperature Source Temporal Artery Scan 03/07/19 08:20 Pulse 94 H 03/07/19 08:20 Pulse Rhythm Regular 03/07/19 07:43 Pulse 81 03/03/19 07:57 Respiratory Rate 22 03/07/19 08:20 Respiratory Effort 03/07/19 07:43 Respiratory Depth Normal 03/06/19 19:37 Respiratory Pattern Normal 03/06/19 19:37 Blood Pressure 112/69 03/07/19 08:20 Blood Pressure Mean 88 03/03/19 07:59 Blood Pressure Position Supine 03/03/19 07:59 Pulse Oximetry 96 03/07/19 08:20 Respiratory End-tidal CO2 29 02/28/19 15:40 Oxygen Delivery Method Room Air 03/07/19 08:20 Oxygen Flow Rate 0 03/07/19 08:20 Fraction of Inspired Oxygen (FIO2) 2 03/02/19 03:00 Pain Level 0 03/05/19 11:15 Comment 02/27/19 11:51 Intake & Output 03/06/19 03/06/19 03/07/19 11:59 23:59 11:59 Intake Total 2005.979 / 2867.479 860.5 / 2867.479 443 / 443 Output Total 2950 / 4850 1900 / 4850 1200 / 1200 Balance -943.021 / -1982.521 -1039.5 / -1982.521 -757 / -757 Weight 167 lb 8.821 oz 152 lb 5.431 oz Intake: IV 1756.979 / 2127.479 370.5 / 2127.479 43 / 43 Oral 250 / 740 490 / 740 400 / 400 Output: Urine 2650 / 4450 1800 / 4450 1200 / 1200 Stool 300 / 400 100 / 400 Other: Urine Color Yellow Pale Pale Yellow Yellow Urine Appearance Clear Clear Clear Urine Odor None None None Comment hat in toilet Voiding Methods Toilet Toilet Toilet Urinal Diaper Labs on day of discharge: Labs from last 24 hours 03/07/19 03/07/19 03/07/19 06:20 06:20 06:20 WBC 7.53 RBC 2.70 L Hgb 9.0 L Hct 27.5 L MCV 101.9 H MCH 33.3 H MCHC 32.7 RDW 12.7 Plt Count 327 MPV 9.0 Sodium 137 Potassium 3.9 Chloride 103 Carbon Dioxide 28.5 Anion Gap 5.5 BUN 11 Creatinine 0.73 Estimated GFR/1.73 m2 >= 60.00 Glucose 97 Calcium 9.2 Phosphorus 2.6 Magnesium 1.6 L PFSH Medical History Diarrhea (Acute) Diverticulitis of large intestine with abscess (Acute) Abdominal discomfort, generalized (Acute) Psoriasis (Acute) Hypothyroidism (Acute 07/13/13) Essential hypertension (Acute 07/13/13) Diverticulosis of large intestine without hemorrhage (Acute 10/17/15) 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 Brother Heart disease COPD (chronic obstructive pulmonary disease) Maternal Grandfather No problems noted. Paternal Grandfather No problems noted. Maternal Grandmother No problems noted. Paternal Grandmother No problems noted. Other Hypothyroidism Social History Smoking/Tobacco Use Status: Former Tobacco Use Quit Date: 09/27/03 Alcohol Intake: current Alcohol Intake frequency: 3 or more drinks per day Alcohol type: hard liquor Drug use: Never Substance use type: does not use Household members: none Pets and animals: No Sexually active: No Current gender identity: female What type of physical activity do you participate in: none Duration: 30-45 minutes/day Frequency: 5-6 times per week Dipti/Synagogue: Sikh Special dipti needs: No Do you feel safe at home: Yes Do you feel safe in your relationship?: Yes
--- NOTE | 2019-03-07 10:57 | PT.INTREAT ---
Date of service: 03/07/19 Time of Service: 10:57 PT Notes 03/07/19 SUBJECTIVE: Ruthann stating she feels well. Her pain is well managed. She is going home today. OBJECTIVE: Pt is standing in room upon entering. Agreeable to PT. TRANSFERS Sit to stand: I Stand to sit: I GAIT Device: No device Weight bearing: Full Assist: I Distance: 300' STAIRS: 6-4 steps, 4-6 steps, 1-2 rails, step through, I completion. ASSESSMENT: No difficulty with stair negotiation today. No LOB or path deviations noted. All performed without discomfort. PLAN: Pt will be D/C to home with services later today. Treatment time: 15 Annette Lai, MARITZA
[2019-03-07 12:14] VITALS: BP 122/70; PULSE 92; RESP 20; TEMP 37.2; O2SAT 95
--- NOTE | 2019-03-07 13:31 | PT.INTREAT ---
Date of service: 03/07/19 Time of Service: 13:31 PT Notes 03/07/19 SUBJECTIVE: Pt stating she had a good lunch today. She would like to get up and move around. OBJECTIVE: Agreeable to PT treatment. TRANSFERS Sit to stand: I Stand to sit: I GAIT: Device: No AD Weight bearing: Full Assist: I Distance: 450' ASSESSMENT: Some discomfort noted through her abdomen with increasing gait distance. Overall tolerating functional mobility well. PLAN: To to be discharged home today. See discharge summary for details. Treatment time: Annette Lai, MARITZA
--- NOTE | 2019-03-07 14:25 | CHAPLAIN ---
Addendum entered by Selena Robb 03/07/19 14:46: Mikayla Levi did not visit Ruthann. I confused that visit with another patient. Original Note: Ruthann was visiting with her son Nagi, ([facility] [employer]). She said she expects to be discharged today and is looking forward to getting home but also apprehensive about caring for her colostomy bag. She said she will have more education today about it, and home health staff will be checking in with her to provided assistance as well. Fr. Clay and Fr. Ramírez had both be into visit Ruthann, as well as Mikayla Levi, a friend from [facility] who provided communion at home for Ruthann's mom, Pretty, when Ruthann was taking of Pretty. I offered Ruthann a copy of a new version the Psa, written by kaylin, which is about pacing our selves and having patience..
--- NOTE | 2019-03-07 15:37 | PDOC.CMDIS ---
- If Service Date Differs Date of service: 03/07/19 Time of Service: 15:37 LACE Index Scoring Tool - Questions: Length of Stay (in days): 14 or more Acuity (Admit via E.D.?): Yes Comorbidities: Any Tumor E.D. Visits: 2 - Answers: Total Score: 14 Risk of Readmission: High Risk Care Management Discharge Reason for Hospitalization: Diverticulitis with abscess Discharge Plan: Idalia is being discharged home today with new home health services for nursing. She has a new ostomy and has received education r/t to caring for stoma and ostomy. She identified a support person her DIL who was also particpated during the teach back. Idalia's confdence level is a 5.5 today she is looking foward to returning home. Home health ostomy nurse will meet her at home on 03/08/19 and her follow up with is 03/10/19. She is being discharged with enough supplies for 3 days at home, she was encouraged to write down questions and contact home health if she needs nurse prior to visit. Idalia will be transported home with her family via private car at time of discharge. Patient/Family Education Needs: Discharge education, limitations, follow up plan and ask me three including self management. Idalia was encouraged to write questions down and review with ostomy nurse at visit on 03/08/19. She was provided contact information for home health as well as CM for questions or concerns. Services Needed at Discharge: Home Health Care Services
--- NOTE | 2019-03-07 15:38 | INDS_ITS ---
Date of service: 03/07/19 Time of Service: 15:36 PT Notes Inpatient Physical Therapy Discharge Summary Dates: 03/07/2019 Dates of Service:03/01/2019 through 03/07/2019 This is a clinical summary of care provided on the duration of dates listed above. No charge was made in the completion of this documentation. Referring Doctor: Eliz Sawyer PT Orders: PT CONSULT: Please evaluate and treat Precautions: fall, standard Patient Profile/Admitting Diagnosis: Patient admitted for management of intestinal abcess, s/p sigmoid resection with colostomy performed 02/28/19. PMHX: Abdominal discomfort, generalized (Acute) Psoriasis (Acute) Hypothyroidism (Acute 07/13/13) Essential hypertension (Acute 07/13/13) Diverticulosis of large intestine without hemorrhage (Acute 10/17/15) DCIS (ductal carcinoma in situ) of breast (Acute 06/29/12) Arthritis (Acute 03/23/16) Impetigo (Acute) Breast cancer Diverticulitis Hypertension Hypothyroidism Psoriasis Social History/Home Situation: Patient lives alone in a single level home with 4 KOLTON. She typically ambulates independently, stating she walks 45 minutes per day. She also reports that she had been ambulating in the halls with nursing without AD prior to surgery yesterday. 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 Equipment Owned/DME: none Subjective: NT Objective: General Observation: NT Mental Status: NT Pain: NT ROM: Right Upper Extremity: WFL Left Upper Extremity: WFL Right Lower Extremity: Patient tolerates hip flexion to 100 degrees. Knee motion WFL Left Lower Extremity: Patient tolerates hip flexion to 100 degrees. Knee motion WFL Strength: Right Upper Extremity: Shoulder flexion, elbow flexion and extension all 3/5 or greater. Left Upper Extremity: Shoulder flexion, elbow flexion and extension all 3/5 or greater. Right Lower Extremity: Hip flexion 3/5 or greater. Quads 3/5 or greater. Ankle DF 3/5 or greater. Left Lower Extremity: Hip flexion 3/5 or greater. Quads 3/5 or greater. Ankle DF 3/5 or greater. Bed Mobility/Transfers: supine-sit: I sit-stand:I stand-sit: I bed-chair: I Gait: Per ADULT BASIC EDUCATION MANAGER documentation in the morning of 03/07/2019 patient was able to tolerate level surface ambulation for 450 feet without an assistive device with FWB independently. Balance: Static Sitting: Normal Dynamic Sitting: Normal Static Standing: Good Dynamic Standing: Good Goals: Goals X1 week 1. Supine-Sit : supervision MET 2. Sit-Supine : supervision MET 3. Sit-Stand : supervision MET 4. Stand-Sit : supervision MET 5. Bed-Chair : supervision with FWW MET 6. Chair-Bed :supervision with FWW MET 7. Gait : supervision with FWW x 50 MET 8. Stairs : ascend and descend 4 steps with bilat rails and supervision MET DISCHARGE RECOMMENDATIONS: Patient will benefit from home health PT services in order to progress mobility level using least restrictive assistive ambulatory device/using no device, assess home safety, identify additional equipment needs, and establish a functional maintenance program that will increase ability of patient to remain at home. TREATMENT CODE/TIME: JULIET Thank you very much for this referral. Criselda Marmolejo PT, DPT, CLT [facility]
== END 2019-03-07 16:10 | disposition home health service (06) | DRG 330 ==
LOC: ER 11:27 → MS 11:41 → ICU 02-28 16:13 → MS 03-03 13:25
PROVIDERS: Emergency Medicine; Surgery; Admitting Provider Surgery; Emergency Provider Emergency Medicine; Visit Provider Surgery
PROC: 0D1M0Z4 Bypass Descending Colon to Cutaneous, Open Approach (ICD-10-PCS; CPT 44140; principal; 2019-02-28 08:00)
PROC: 0D1M0Z4 Bypass Descending Colon to Cutaneous, Open Approach (ICD-10-PCS; CPT 44141; 2019-02-28 08:00)
DX: K57.20 Diverticulitis of large intestine with perforation and abscess without bleeding (principal); K56.699 Other intestinal obstruction unspecified as to partial versus complete obstruction; R18.8 Other ascites; E46 Unspecified protein-calorie malnutrition; D27.0 Benign neoplasm of right ovary; N83.292 Other ovarian cyst, left side; N83.8 Other noninflammatory disorders of ovary, fallopian tube and broad ligament; Z98.890 Other specified postprocedural states; E87.6 Hypokalemia; E83.42 Hypomagnesemia; R32 Unspecified urinary incontinence; G89.18 Other acute postprocedural pain; I95.81 Postprocedural hypotension; E03.9 Hypothyroidism, unspecified; I10 Essential (primary) hypertension; R60.0 Localized edema
CPT/HCPCS: 44141; 44139; 58720; 36556; 36415; 36591; 80048; 80053; 83690; 85027; 86141; 86850; 86900; 86901; 88305; 96361; 96365; 96375; 97110; 97163; 97166; 97530; 97535; 99223; 99231; 99232; 99233; 99285; J1650; NC; 49406; 71045; 74019; 74022; 74177; 81003; 83735; 84100; 84443; 85025; 85610; 85730; 86140; 87324; 88104; 88307; 93005; 93010; 99284; A0420; A0425; A0428; J0131; J1885; J1941; J2250; J2370; J2405; J2543; J3010; J3475; J3480; J3490

== ENCOUNTER 2019-03-10 08:03 | Outpatient (CLI) | payer MEDICARE, BC, SELFPAY ==
[2019-03-10 13:42] LABS: HCT 29.5 % (36.0-46.0); HGB 9.7 g/dL (12.0-15.5)
[2019-03-10 14:20] LABS: Anion Gap 10.5 mmol/L (3-11); BUN 9 mg/dL (7-18); C-Reactive Protein 2.05 mg/dL (0.0-0.3); CO2 28.5 mmol/L (21.0-32.0); CREATININE 0.85 mg/dL (0.55-1.02); Calcium 9.6 mg/dL (8.5-10.1); Chloride 96 mmol/L (98-107); Glucose 89 mg/dL (70-100); Magnesium 1.4 mg/dL (1.8-2.4); Potassium 3.8 mmol/L (3.5-5.1); Sodium 135 mmol/L (136-145)
== END 2019-03-10 08:23 ==
PROVIDERS: Visit Provider Surgery
DX: D64.9 Anemia, unspecified; Z48.815 Encounter for surgical aftercare following surgery on the digestive system; R60.9 Edema, unspecified; I10 Essential (primary) hypertension
CPT/HCPCS: 36415; 80048; 83735; 85014; 85018; 86140

== ENCOUNTER → 2019-04-14 13:37 | Outpatient (BNVA) | payer MEDICARE, BC, SELFPAY | PROVIDERS: Visit Provider Surgery | DX: Z43.3 Encounter for attention to colostomy (principal); Z87.19 Personal history of other diseases of the digestive system; I10 Essential (primary) hypertension | CPT/HCPCS: 99213 ==

== ENCOUNTER → 2019-06-09 12:53 | Outpatient (BNVA) | payer MEDICARE, BC, SELFPAY | PROVIDERS: Visit Provider Surgery | DX: Z93.3 Colostomy status (principal); I10 Essential (primary) hypertension; Z87.19 Personal history of other diseases of the digestive system; Z48.815 Encounter for surgical aftercare following surgery on the digestive system | CPT/HCPCS: 99213 ==

== ENCOUNTER 2019-06-16 10:56 | Outpatient (CLI) | payer MEDICARE, BC, SELFPAY ==
[2019-06-16 14:52] LABS: Abs Immature Grans 0.03 k/cumm (0.0-0.09); Absolute Basophil Count 0.03 k/cumm (0.0-0.2); Absolute Eosinophil Count 0.25 k/cumm (0.0-0.7); Absolute Lymphocyte Count 1.66 k/cumm (1.2-3.4); Absolute Monocyte Count 0.79 k/cumm (0.11-0.7); Absolute Neutrophil Count 4.48 k/cumm (1.2-6.7); Basophils % 0.4; Eosinophils % 3.5; HGB 15.1 g/dL (12.0-15.5); Immature Grans % 0.4; Lymphocytes % 22.9; Mean Corp. HGB Concentration 33.6 g/dL (32.0-36.0); Mean Corpuscular Hemoglobin 31.8 pg (27.0-33.0); Mean Corpuscular Volume 94.7 fL (80-95); Monocytes % 10.9; Neutrophils % 61.9; Platelet Count 233 x1000/uL (130-400); RBC 4.75 m/cumm (4.00-5.20); RBC Distribution Width 14.6 % (11.7-14.6); White Blood Cell Count 7.24 k/cumm (4.4-10.8)
[2019-06-16 15:11] LABS: ALT 34 U/L (14-59); AST 24 U/L (15-37); Albumin 3.3 g/dL (3.4-5.0); Alkaline Phosphatase 89 U/L (46-116); Anion Gap 9.2 mmol/L (3-11); BUN 20 mg/dL (7-18); Bilirubin, Total 0.4 mg/dL (0.2-1.0); CO2 26.8 mmol/L (21.0-32.0); CREATININE 0.77 mg/dL (0.55-1.02); Calcium 9.6 mg/dL (8.5-10.1); Chloride 104 mmol/L (98-107); Glucose 89 mg/dL (70-100); Potassium 4.4 mmol/L (3.5-5.1); Sodium 140 mmol/L (136-145); Total Protein 6.8 g/dL (6.4-8.2)
[2019-06-19 10:08] LABS: Prealbumin 32 mg/dL (20-40)
== END 2019-06-16 11:16 ==
PROVIDERS: Visit Provider Surgery
DX: Z86.39 Personal history of other endocrine, nutritional and metabolic disease (principal)
CPT/HCPCS: 36415; 80053; 84134; 85025

== ENCOUNTER 2019-12-12 13:45 | Outpatient (REF) | payer MEDICARE, BC, SELFPAY ==
[2019-12-16 19:27] LABS: Lactoferrin, Qt, Stool <30.0 mcg/mL
== END 2019-12-12 14:05 ==
LOC: LBN 13:45
PROVIDERS: Visit Provider Internal Medicine Gastroenterology
DX: K52.9 Noninfective gastroenteritis and colitis, unspecified (principal)
CPT/HCPCS: 83631; 87324

== ENCOUNTER 2020-08-30 02:49 | Outpatient (CLI) | payer MEDICARE, BC, SELFPAY ==
[2020-08-30 13:04] LABS: TSH (W/Ref FT4) 2.78 uIU/mL (0.36-3.74)
== END 2020-08-30 03:09 ==
DX: E03.9 Hypothyroidism, unspecified (principal)
CPT/HCPCS: 36415; 84443

== ENCOUNTER 2020-11-21 02:27 | Outpatient (CLI) | payer MEDICARE, BC, SELFPAY ==
--- NOTE | 2020-11-21 09:30 | DI.MAMMO_ITS ---
EXAM: MG MAMMO SCREENING 60 MIN DUR CLINICAL HISTORY: breast cancer screening,personal h/o breast ca,z85.3. TECHNIQUE: Bilateral full field digital CC and MLO mammographic images were obtained with 3D tomosyn thesis and utilizing computer aided detection (CAD). COMPARISON: Prior mammograms dating back to 2012, the most recent being July 2019. FINDINGS: Asymmetric density posteriorly in the right breast is noted on the CC view and subjected to spot comp ression view and compresses out. Benign-appearing microcalcifications noted. No new malignant-appea ring microcalcification groups. There is no new significant architectural distortion nor skin thickening-retraction. IMPRESSION: Benign findings. No radiographic evidence of malignancy. BI-RADS Category 2 - Benign Findings Breast Density - Category B - Scattered areas of fibroglandular density Breast density Category C or D implies that the patient has dense breast tissue. Dense breast tissue can make it harder to find cancer on a mammogram. Dense breast tissue is also associated with an incr eased risk of breast cancer. This information about the result of the mammogram report was provided to the patient to raise their awareness. Use this report when you speak with the patient about their risks for breast cancer, which includes their family history. At that time, you may recommend additional screening tests (Ultrasoun d or MRI) as these tests may add significant information. A negative radiographic report should not delay biopsy if a dominant or clinically suspicious mass is present. Up to ten percent of cancers are not identified on mammography. A negative report may reinforce clinical impression. Adenosis and dense breasts may obscure an underlying neoplasm. False positive reports average 6 to 10%. Patient will receive a letter notifying them of these results.
== END 2020-11-21 02:28 ==
LOC: DI 02:27
DX: Z12.31 Encounter for screening mammogram for malignant neoplasm of breast (principal); Z85.3 Personal history of malignant neoplasm of breast
CPT/HCPCS: 77063; 77067

== ENCOUNTER 2021-09-30 18:34 | Outpatient (CLI) | payer MEDICARE, BC, SELFPAY ==
--- NOTE | 2021-09-30 18:30 | RT.EKG_ITS ---
APPROVED REPORT Exam: Resting ECG Reason for Exam: Chest discomfort Patient Location: O HR:73 bpm ECG Measurements Heart Rate 73 AXIS ME 158 P 48 QRSd 87 QRS -41 QT 413 T 16 QTc 454 Conclusion Sinus rhythm...normal P axis, V-rate 60- 99 Probable left atrial enlargement...P >50mS, <-0.10mV V1 Left axis deviation...QRS axis (-30,-90)
== END 2021-09-30 18:35 | disposition home or self-care (01) ==
LOC: DI.CM 18:34
PROVIDERS: Visit Provider Nurse Practitioner Family
DX: R07.89 Other chest pain (principal); R94.31 Abnormal electrocardiogram [ECG] [EKG]
CPT/HCPCS: 93010

== ENCOUNTER 2021-09-30 19:56 | Outpatient (REF) | payer MEDICARE, BC, SELFPAY ==
[2021-10-02 13:18] LABS: COVID-19 RT-PCR UVMMC Result Negative (Negative)
== END 2021-09-30 19:57 | disposition home or self-care (01) ==
LOC: LBN 19:56
PROVIDERS: Visit Provider Nurse Practitioner Family
DX: Z20.822 Contact with and (suspected) exposure to COVID-19 (principal)
CPT/HCPCS: U0003; U0005

== ENCOUNTER 2022-01-14 03:06 | Outpatient (CLI) | payer MEDICARE, BC, SELFPAY ==
[2022-01-14 09:40] LABS: ALT 49 U/L (14-59); AST 47 U/L (15-37); Albumin 3.8 g/dL (3.4-5.0); Alkaline Phosphatase 83 U/L (46-116); Anion Gap 6.5 mmol/L (3-11); BUN 10 mg/dL (7-18); Bilirubin, Total 0.4 mg/dL (0.2-1.0); CO2 29.5 mmol/L (21.0-32.0); CREATININE 0.9 mg/dL (0.55-1.02); Calcium 9.6 mg/dL (8.5-10.1); Chloride 109 mmol/L (98-107); Glucose 82 mg/dL (74-106); Potassium 3.7 mmol/L (3.5-5.1); Sodium 145 mmol/L (136-145); TSH (W/Ref FT4) 0.82 uIU/mL (0.36-3.74); Total Protein 6.6 g/dL (6.4-8.2)
== END 2022-01-14 03:07 | disposition home or self-care (01) ==
LOC: LBO 03:07
DX: I10 Essential (primary) hypertension (principal); E03.9 Hypothyroidism, unspecified
CPT/HCPCS: 36415; 80053; 84443

== ENCOUNTER → 2022-03-03 01:02 | Outpatient (CLI) | payer MEDICARE, BC, SELFPAY ==
--- NOTE | 2022-03-03 07:15 | DI.MAMMO_ITS ---
Exam(s) MG MAMMO SCREENING 60 MIN DUR EXAM: MG MAMMO SCREENING 60 MIN DUR CLINICAL HISTORY: breast cancer screening, personal h/o lt breast ca,z85.3 TECHNIQUE: Mammograms were interpreted according to the usual protocol including computer analysis w PROnoise CAD system, tomosynthesis and C-view imaging. COMPARISON: 2013 through 2020 FINDINGS: The breasts are composed of scattered fibroglandular densities, Breast Density category B. There is again noted to be an area of post lumpectomy scarring in the posterosuperior left breast. N o suspicious masses or suspicious microcalcifications are seen. Vascular calcifications are incident ally noted. No skin thickening or abnormal axillary lymph nodes are seen. There has been no significant change from prior exams. IMPRESSION: BI-RADS Category 1, Negative mammogramBI-RADS Cat 2 - Benign Findings Yearly screening mammography is recommended. Breast Density - Category B, scattered fibroglandular densities. A negative radiographic report should not delay biopsy if a dominant or clinically suspicious mass is present. Up to ten percent of cancers are not identified on mammography. A negative report may reinforce clinical impression. Adenosis and dense breasts may obscure an underlying neoplasm. False positive reports average 6 to 10%. Patient will receive a letter notifying them of these results.
== END ==
DX: Z12.31 Encounter for screening mammogram for malignant neoplasm of breast (principal); Z85.3 Personal history of malignant neoplasm of breast; Z98.890 Other specified postprocedural states
CPT/HCPCS: 77063; 77067

== ENCOUNTER 2023-01-26 05:00 | Outpatient (CLI) | payer MEDICARE, BC, SELFPAY ==
[2023-01-26 13:08] LABS: ALT 32 U/L (14-59); AST 22 U/L (15-37); Albumin 3.9 g/dL (3.4-5.0); Alkaline Phosphatase 72 U/L (46-116); BUN 10 mg/dL (7-18); Bilirubin, Total 0.6 mg/dL (0.2-1.0); Calculated LDL 105 mg/dL (<100); Chloride 103 mmol/L (98-107); Cholesterol 228 mg/dL (<200); Estimated GFR 59.86 (mL/min/1.73m2); Glucose 94 mg/dL (74-106); HDL Cholesterol 95 mg/dL (40-60); Potassium 3.9 mmol/L (3.5-5.1); Sodium 142 mmol/L (136-145); TSH (W/Ref FT4) 0.83 uIU/mL (0.36-3.74); Total Protein 7.2 g/dL (6.4-8.2); Triglyceride 140 mg/dL (<150)
== END 2023-01-26 05:01 | disposition home or self-care (01) ==
LOC: LOS 05:00
PROVIDERS: PCP Nurse Practitioner Family; Visit Provider Nurse Practitioner Family
DX: Z13.220 Encounter for screening for lipoid disorders (principal); E03.9 Hypothyroidism, unspecified; F10.10 Alcohol abuse, uncomplicated; I10 Essential (primary) hypertension; Y90.9 Presence of alcohol in blood, level not specified
CPT/HCPCS: 36415; 80053; 80061; 84443

== ENCOUNTER 2023-03-05 00:05 | Outpatient (CLI) | payer MEDICARE, BC, SELFPAY ==
--- NOTE | 2023-03-05 | DI.US_ITS ---
Exam(s) US BREAST RT COMPLETE MG MAMMO SCREENING 60 MIN DUR EXAM: MG MAMMO SCREENING 60 MIN DUR and U/S breast RT complete CLINICAL HISTORY: breast cancer screening,PERSONAL H/O BREAST CA,Z85.3. TECHNIQUE: Craniocaudal and mediolateral oblique Full Field Digital Mammography views with Computer Aided Diagnosis followed by Tomosynthesis and right breast ultrasound. COMPARISON: Comparison is made with prior examinations. FINDINGS: Mammography/Tomosynthesis: Masses/Architectural Distortion: The patient has had a prior left lumpectomy. There is a spiculated mass in the lower outer quadrant of the right breast. Microcalcifictions: No suspicious pleomorphic-type are seen. Skin Thickening/Nipple Retraction: None. Complete right breast US: Echotexture: Normal appearance of the glandular tissue. Shadowing: No suspicious foci. Cyst: None. Solid lesions: At the 6:00 to 7:00 position of the right breast 1 cm from the nipple, there is a hypo echoic spiculated mass measuring 1.2 x 1.1 x 1.6 cm. This corresponds to the mammographic abnormalit y. There is a 4 x 3 x 3 mm hyperechoic lesion at the 4 o'clock position 2 cm from the nipple most cervantes ggestive of a lipoma. A benign-appearing lymph node is seen in the axilla measuring 2.4 x 0.8 x 1.4 cm. Ductal dilation: None. IMPRESSION: 1. Spiculated mass in the lower outer quadrant of the right breast. 2. Biopsy is recommended. 3. Findings were discussed with the patient and Ameya Ghosh at 12:25 p.m. on 03/05/2023. BI-RADS Category 5 - Highly Suggestive of Malignancy: Biopsy recommended Breast Density - Category C - Heterogeneously dense Breast density Category C or D implies that the patient has dense breast tissue. Dense breast tissue can make it harder to find cancer on a mammogram. Dense breast tissue is also associated with an incr eased risk of breast cancer. This information about the result of the mammogram report was provided to the patient to raise their awareness. Use this report when you speak with the patient about their risks for breast cancer, which includes their family history. At that time, you may recommend additional screening tests (Ultrasoun d or MRI) as these tests may add significant information. A negative radiographic report should not delay biopsy if a dominant or clinically suspicious mass is present. Up to ten percent of cancers are not identified on mammography. A negative report may reinforce clinical impression. Adenosis and dense breasts may obscure an underlying neoplasm. False positive reports average 6 to 10%. Patient will receive a letter notifying them of these results.
== END 2023-03-05 00:25 ==
LOC: DI 00:05
PROVIDERS: PCP Nurse Practitioner Family; Visit Provider Nurse Practitioner Family
DX: I10 Essential (primary) hypertension (principal); Z85.3 Personal history of malignant neoplasm of breast; R92.8 Other abnormal and inconclusive findings on diagnostic imaging of breast; Z12.31 Encounter for screening mammogram for malignant neoplasm of breast
CPT/HCPCS: 76642; 77063; 77067

== ENCOUNTER 2023-03-07 06:28 | Emergency (ER) | payer MEDICARE, BC, SELFPAY ==
--- NOTE | 2023-03-07 06:30 | DI.RAD_ITS ---
Exam(s) XR KNEE LT 3V AP,LAT,CHAN EXAM: XR KNEE LT 3V AP,LAT,CHAN CLINICAL HISTORY: left knee pain after fall. TECHNIQUE: 2D digital imaging was performed of the left knee. Three images were obtained. AP, late ral and PA tunnel views were obtained. COMPARISON: No exams were available for comparison FINDINGS: BONES: There is a vertically oriented fracture beginning between the tibial spines and descending me dially to the proximal metadiaphysis of the tibia. No significant displacement is seen. No bony christy tructive lesion is seen. JOINTS: The knee is normally aligned. There is a hemarthrosis. SOFT TISSUE: Normal. IMPRESSION: Proximal tibial fracture with hemarthrosis. DATA REPOSITORY: RADIATION DOSE DELIVERED:
[2023-03-07 06:33] VITALS: BP 190/125; PULSE 78; RESP 16; TEMP 36.6; O2SAT 96
--- NOTE | 2023-03-07 06:43 | ED.GENADUL_ITS ---
Discharge Plan Disposition Patient Disposition: Home Discharge Details Clinical Impression: Closed fracture of left tibial plateau Primary Care Provider: Ameya Tam ED Provider: Adam Driscoll Home Meds and New Rx's Prescriptions: No Action cholecalciferol (vitamin D3) 1,000 unit capsule 1,000 unit PO DAILY calcium carbonate-vitamin D3 1,000 mg(2,500 mg)-800 unit tablet See Rx Instructions .ROUTE .COMPLEX Rx Instructions: OTC med meclizine 25 mg tablet 25 mg PO BID PRN (Reason: dizziness) Qty: 20 0RF Patient Comments: pt states she no longer takes this medication Rx Instructions: May take 1 tab every 12 hours as needed for dizziness allopurinol 100 mg tablet 200 mg PO DAILY Qty: 180 3RF levothyroxine 125 mcg tablet 125 mcg PO DAILY Qty: 90 3RF lisinopril 20 mg tablet 20 mg PO DAILY Qty: 90 3RF Discharge Instructions Additional Instructions: At this time you have evidence of a tibial plateau fracture. You will be placed in a knee immobilizer and given crutches. Please keep the knee immobilizer on at all times. It is critically important that you do NOT bear ANY weight on yo ur affected leg at all as this can worsen the fracture. Please take Tylenol as needed for pain. Please follow-up closely with the child welfare specialist Dr. Jewell. If you notice any worsening of your symptoms, or any new symptoms such as vomiting, diarrhea, fever, chills, shortness of breath, chest pain, numbness, weakness, or fainting , please return immediately to the emergency department for reevaluation. Please follow up with your primary care provider as soon as possible for reassessment and reevaluation. As always, it was a pleasure participating in your medical care today. Referrals: Ameya Tam, CR[facility] [Primary Care Provider] - Lucas Jewell MD [ [facility] STAFF PHYSICIAN] - Discharge Data Discharge Date/Time-TO BE ENTERED AT DEPARTURE: 03/07/23 08:25 Medical Decision Making This is a pleasant 72-year-old female who presents today for evaluation of left knee pain. Patient states that about 12 hours ago last night she was walking with a dinner plate, when her 2 cats tripped her accidentally. She fell forward and landed on her left knee. She did not hit her head, she did not lose consciousness. She did not hit anything else or have any other significant pain. She had mild pain at first on her left knee when it occurred, however when she woke up this morning the knee was extremely painful and stiff as well. She had notable pain with weightbearing, and was not able to bear any weight. She denies any numbness or tingling. Pain is made worse with movement. Improved by nothing. She has not taken any medication for the pain. No other complaints at this time. No history of previous injury to the knee. Exam demonstrates mild swelling in the knee. Mild abrasion anteriorly. No significant joint laxity. Notable positive Antonia's test. Also notable pain with valgus stressing. Concern for tibial plateau injury versus meniscal injury and knee strain. Will give Tylenol Motrin, ice, get an x-ray, monitor closely and reassess. 7:52 AM X-ray shows evidence of a medial tibial plateau fracture. We will place the patient in a knee immobilizer, with crutches with strict nonweightbearing instructions. I did refer the case to Dr. Jewell. He will follow-up with her closely on an outpatient basis. We will get a CT scan for further outpatient management. Discussed the case with the patient and her family isaiah romi at bedside. I have extensively reviewed the treatment plan and discharge instructions with the patient and their family. I have addressed all patient concerns at this time. The patient and family was made aware of what symptoms to monitor for that would warrant a return to the emergency department. Discussed the plan with the patient and family, they demonstrate verbal understanding and agreement with our assessment and plan at this time. The documentation in this chart was dictated using Cor[employer] dictation software. Please excuse any dictation errors. FINDINGS: Bones: Osteopenia. There is an acute nondisplaced fracture involving the lateral tibial plateau and inter spinous region extending distally in medially into the proximal tibial metadiaphysis. No plateau depression is seen. There is no evidence of joint space narrowing or cystic degeneration seen. No lytic or sclerotic lesions are identified. There is a hemarthrosis. Soft Tissues: Soft tissue edema. IMPRESSION: Acute nondisplaced proximal tibial fracture with hemarthrosis. FINDINGS: Bones/joints: Osteopenia. Acute vertically oriented fracture of proximal tibial metadiaphysis extends distally approximately 7.5 cm from articular surface of intercondylar tibial eminence, without displacement or appreciable cortical depression. Associated joint effusion. No dislocation. Joint spaces are maintained. Soft tissues: See above. IMPRESSION: Acute fracture of proximal tibia as described. Thank you for allowing us to participate in the care of your patient. Dictated and Authenticated by: Rosalino Dupont MD 03/07/2023 7:46 AM Eastern Time ([place] & [place]) HPI General Date/Time Provider Initiated Documentation: 03/07/23 06:41 . HPI Narrative: This is a pleasant 72-year-old female who presents today for evaluation of left knee pain. Patient states that about 12 hours ago last night she was walking with a dinner plate, when her 2 cats tripped her accidentally. She fell forward and landed on her left knee. She did not hit her head, she did not lose consciousness. She did not hit anything else or have any other significant pain. She had mild pain at first on her left knee when it occurred, however when she woke up this morning the knee was extremely painful and stiff as well. She had notable pain with weightbearing, and was not able to bear any weight. She denies any numbness or tingling. Pain is made worse with movement. Improved by nothing. She has not taken any medication for the pain. No other complaints at this time. No history of previous injury to the knee. Related Data Home Medications Medication Instructions Recorded Confirmed calcium carbonate 1,000 mg-vitamin See Rx Instructions .Route .COMPLEX 06/02/18 03/07/23 D3 20 mcg (800 unit) tablet cholecalciferol (vitamin D3) 25 1,000 unit PO DAILY 06/02/18 03/07/23 mcg (1,000 unit) capsule meclizine 25 mg tablet 25 mg PO BID PRN dizziness #20 tabs 09/30/21 03/07/23 allopurinol 100 mg tablet 200 mg PO DAILY #180 tabs 08/31/22 03/07/23 levothyroxine 125 mcg tablet 125 mcg PO DAILY #90 tabs 08/31/22 03/07/23 lisinopril 20 mg tablet 20 mg PO DAILY #90 tabs 01/30/23 03/07/23 Previous Rx's Medication Instructions Recorded meclizine 25 mg tablet 25 mg PO BID PRN dizziness #20 tabs 09/30/21 allopurinol 100 mg tablet 200 mg PO DAILY #180 tabs 08/31/22 levothyroxine 125 mcg tablet 125 mcg PO DAILY #90 tabs 08/31/22 lisinopril 20 mg tablet 20 mg PO DAILY #90 tabs 01/30/23 Allergies Allergy/AdvReac Type Severity Reaction Status Date / Time ciprofloxacin AdvReac Intermediate Nausea, Verified 02/09/23 14:52 vomiting metronidazole AdvReac Intermediate Nausea Verified 02/09/23 14:52 scallop AdvReac Severe GI Upset Uncoded 02/09/23 14:52 General Stated Complaint: Orthopedic ROOPA: 3 Review of Systems All systems reviewed & are unremarkable except as noted in HPI and below PFSH All Active Problems (Updated 03/07/23 @ 07:56 by Adam Driscoll DO) Arthritis (Chronic 03/23/16) Essential hypertension (Chronic 07/13/13) Hypothyroidism (Chronic 07/13/13) h/o graves and I-131 rx Psoriasis (Chronic) Family history of colon cancer (Chronic 09/25/14) Rectal/anal stenosis (Chronic) Advanced directives, counseling/discussion (Chronic) Reviewed document developed from her layer out plate glass - one clarification made & initialed. Will file in system. H/O bilateral salpingectomy (Acute) 02/28/19 Seasonal allergies (Acute) Abnormal mammogram of right breast (Acute) Closed fracture of left tibial plateau (Acute) Medical History Anxiety Breast cancer Diarrhea Diverticulitis Diverticulitis of large intestine with abscess History of tobacco use Hypokalemia Hypomagnesemia Impetigo Psoriasis Surgical History Breast, Lumpectomy 2011- had radiation Breast, Mastectomy [facility] [place]-PARTIAL LEFT BREAST AND LEFT AXILLARY SENTINAL NODE EXCISION ON 08/12/12 Colonoscopy - IV Sedation Extraction of cataract 10/2016,11/2016 S/P exploratory laparotomy (~02/28/19) Family History Mother , 90's Essential hypertension Heart disease ASHD, A fib Breast cancer Father , 50's Colon cancer Sister No problems noted. Brother , 60's Heart disease COPD (chronic obstructive pulmonary disease) Alcohol abuse Maternal Grandfather No problems noted. Paternal Grandfather No problems noted. Maternal Grandmother No problems noted. Paternal Grandmother No problems noted. Son No problems noted. Daughter No problems noted. Other Hypothyroidism Social History Smoking/Tobacco Use Status: Former Tobacco Use tobacco type: cigarettes Quit Date: 09/27/04 Tobacco: How many years used: 35 Second Hand Exposure: No Smoking risk assessment performed?: Yes Alcohol Intake: current Alcohol Intake frequency: a few times a week Alcohol type: hard liquor Drug use: Never Substance use type: does not use Counseling given: No Counseling provided: none Caregiver/Support person: No Household members: none Housing: house Communication Needs: None Do you need help understanding health information?: Never Pets and animals: Yes Pets and animals: cat(s) Sexually active: No Do you think of yourself as: straight/heterosexual Current gender identity: female What is your relationship status?: How often do you talk on the phone with friends or family?: three or more times per week How often do you get together with friends or relatives?: twice per week How often do you attend buddhism or islam services?: decline to answer Do you belong to any clubs or organized social groups?: no Panel score (0-1 are the most socially isolated patients): 1 What type of physical activity do you participate in: walking Duration: 30-45 minutes/day Frequency: 5-6 times per week Dipti/Roman Catholic: Adventist Special dipti needs: No Seatbelt use: always Drive intox or ride w/intox deliver driver: No Do you feel safe at home: Yes Do you feel safe in your relationship?: Yes Exam Narrative Exam Narrative: 1.Const: Well-nourished, Well-developed, appearing stated age 2.Eyes: PERRL, no conjunctival injection, and symmetrical lids. 3.ENT: Atraumatic external nose and ears. Moist MM. Neck: Symmetric, trachea midline, No thyromegaly. 4.CVS: +S1/S2, No murmurs or gallops. Peripheral pulses 2+ and equal in all extremities. Brisk capillary refill in all extremities. 5.RESP: Unlabored respiratory effort. Clear to auscultation bilaterally. No wheezes rales or rhonchi 6.GI: Soft, Nontender/Nondistended, No hepatosplenomegaly. No guarding or rebound. 7.MSK: Left knee demonstrates no significant tenderness on palpation of the patella, or proximal fibula. Mild tenderness on palpation of the tibial plateau. Minimal pain on palpation of the posterior aspect. No laxity or significant pain with anterior posterior drawer testing. Notable posterior and tibial pain with valgus stressing. No significant pain with varus stressing. Posterior pain is present with flexion of the knee. Notable tibial plateau area pain with Antonia's test. Mild abrasion noted over the anterior lateral aspect of the knee. Mild swelling. 8.Skin: Warm, Dry. No rashes or lesions. 9.Neuro: cto II-XII grossly intact. Sensation grossly intact, no focal neurologic deficits. 10.Psych: (AAO) x3. Appropriate mood and affect Course Vital Signs Vital signs: Vital Signs Temperature 36.6 C 03/07/23 06:33 Pulse 78 03/07/23 06:33 Respiratory Rate 16 03/07/23 06:33 Blood Pressure 190/125 H 03/07/23 06:33 Pulse Oximetry 96 03/07/23 06:33 Temperature 36.6 C 03/07/23 06:33 Temperature Source Oral 03/07/23 06:33 Pulse 78 03/07/23 06:33 Respiratory Rate 16 03/07/23 06:33 Respiratory Effort Normal, Non-Labored 03/07/23 06:36 Blood Pressure 190/125 H 03/07/23 06:33 Blood Pressure Position Sitting 03/07/23 06:33 Pulse Oximetry 96 03/07/23 06:33 Pain Level 7 03/07/23 06:33
[2023-03-07] MEDS: Acetaminophen 500 MG TAB 1000 MG PO (06:45)
[2023-03-07] MEDS: Ibuprofen 800 MG TAB PO (06:45)
--- NOTE | 2023-03-07 07:30 | DI.CT_ITS ---
Exam(s) CT LOWER EXTREMITY LT WO EXAM: CT LOWER EXTREMITY LT WO CLINICAL HISTORY: tib plat fx. TECHNIQUE: Imaging Protocol: Axial computed tomography images with coronal and sagittal reformatted images were created and reviewed. COMPARISON: CR,XR XR KNEE LT 3V AP,LAT,CHAN from 03/07/2023 FINDINGS: Bones: Osteopenia. There is an acute nondisplaced fracture involving the lateral tibial plateau and inter spinous region extending distally in medially into the proximal tibial metadiaphysis. No plat eau depression is seen. There is no evidence of joint space narrowing or cystic degeneration seen. N o lytic or sclerotic lesions are identified. There is a hemarthrosis. Soft Tissues: Soft tissue edema. IMPRESSION: Acute nondisplaced proximal tibial fracture with hemarthrosis. RADIATION DOSE DELIVERED: 250.1mGy.cm Total DLP 250.1mGy.cm Total DLP DATA REPOSITORY: All CT scans at this facility are submitted to the National Radiology Data Registry (NRDR) Dose Index Registry (DIR) with the [employer] (ACR). RADIATION OPTIMIZATION: All CT scans at this facility use at least one of these dose optimization te chniques: automated exposure control; mA and/or kV adjustment per patient size (includes targeted exa ms where dose is matched to clinical indication); or iterative reconstruction.
--- NOTE | 2023-03-07 07:47 | DI.VRAD_ITS ---
PROCEDURE INFORMATION: Exam: XR Left Knee Exam date and time: 03/07/2023 7:16 AM Age: 72 years old Clinical indication: Other: Left knee pain after fall TECHNIQUE: Imaging protocol: Radiologic exam of the left knee. Views: 3 views. COMPARISON: No relevant prior studies available. FINDINGS: Bones/joints: Osteopenia. Acute vertically oriented fracture of proximal tibial metadiaphysis extends distally approximately 7.5 cm from articular surface of intercondylar tibial eminence, without displacement or appreciable cortical depression. Associated joint effusion. No dislocation. Joint spaces are maintained. Soft tissues: See above. IMPRESSION: Acute fracture of proximal tibia as described. Dictated and Authenticated by: Rosalino Dupont MD. Ordering:CALE Medina MD
--- NOTE | 2023-03-07 08:39 | DI.VRAD_ITS ---
PROCEDURE INFORMATION: Exam: CT Left Lower Extremity Without Contrast, Knee Exam date and time: 03/07/2023 7:53 AM Age: 72 years old Clinical indication: Other: Tib plat FX TECHNIQUE: Imaging protocol: CT of the left lower extremity without contrast was performed. Exam focused on the knee. Radiation optimization: All CT scans at this facility use at least one of these dose optimization techniques: automated exposure control; mA and/or kV adjustment per patient size (includes targeted exams where dose is matched to clinical indication); or iterative reconstruction. COMPARISON: CR XR KNEE LT 3V AP,LAT,CHAN 03/07/2023 7:16 AM FINDINGS: Bones/joints: Osteopenia. Similar to recent radiographs, there is an acute nondisplaced tibial plateau fracture extending from lateral tibial spine to posteromedial aspect of proximal tibial metadiaphysis, spanning approximately 7.5 cm in length. No cortical depression or dislocation. Associated lipohemarthrosis and soft tissue stranding/edema. Degenerative spurring of proximal fibula. Soft tissues: See above. Lateral greater than medial meniscal chondrocalcinosis. IMPRESSION: Acute proximal tibial fracture as described. Dictated and Authenticated by: Rosalino Dupont MD. Ordering:CALE Medina MD
== END 2023-03-07 08:25 | disposition home or self-care (01) ==
PROVIDERS: Emergency Provider Student in an Organized Health Care Education/Training Program; PCP Nurse Practitioner Family
DX: S82.142A Displaced bicondylar fracture of left tibia, initial encounter for closed fracture (principal); W01.0XXA Fall on same level from slipping, tripping and stumbling without subsequent striking against object, initial encounter
CPT/HCPCS: 29530; 73562; 99284; 73700

== ENCOUNTER 2023-03-16 08:59 | Outpatient (CLI) | payer MEDICARE, BC, SELFPAY ==
--- NOTE | 2023-03-16 08:45 | DI.RAD_ITS ---
Exam(s) XR KNEE LT 2V AP,LAT EXAM: XR KNEE LT 2V AP,LAT CLINICAL HISTORY: left tibial plateau fx. TECHNIQUE: 2D digital imaging was performed of the left knee. Two images were obtained. AP and lat eral views were obtained. COMPARISON: CR,XR XR KNEE LT 3V AP,LAT,CHAN from 03/07/2023 FINDINGS: BONES: There has been no change in alignment of the fracture involving the proximal tibia. No new f ractures identified. No bony destructive lesion is seen. JOINTS: The knee is normally aligned. There is a small joint effusion. Chondrocalcinosis is seen whi ch can be present in CPPD arthropathy. SOFT TISSUE: Normal. IMPRESSION: Stable proximal left tibial fracture. DATA REPOSITORY: RADIATION DOSE DELIVERED:
== END 2023-03-16 09:00 | disposition home or self-care (01) ==
LOC: DIORS 08:59
PROVIDERS: PCP Nurse Practitioner Family; Referring Provider Nurse Practitioner Family; Visit Provider Student in an Organized Health Care Education/Training Program
DX: S82.142D Displaced bicondylar fracture of left tibia, subsequent encounter for closed fracture with routine healing; X58.XXXD Exposure to other specified factors, subsequent encounter
CPT/HCPCS: 99204; 99213; 73560

== ENCOUNTER 2023-03-19 15:05 | Outpatient (REF) | payer MEDICARE, BC, SELFPAY | END 2023-03-19 15:06 | disposition home or self-care (01) | LOC: LBN 15:05 | PROVIDERS: PCP Nurse Practitioner Family; Visit Provider Nurse Practitioner Family | DX: R30.0 Dysuria (principal) | CPT/HCPCS: 87086 ==

== ENCOUNTER 2023-03-31 16:04 | Outpatient (CLI) | payer MEDICARE, BC, SELFPAY ==
--- NOTE | 2023-03-31 15:30 | DI.RAD_ITS ---
Exam(s) XR KNEE LT 2V AP,LAT EXAM: XR KNEE LT 2V AP,LAT CLINICAL HISTORY: left knee pain. TECHNIQUE: 2D digital imaging was performed. Three views. COMPARISON: CR,XR XR KNEE LT 3V AP,LAT,CHAN from 03/07/2023 CR XR KNEE LT 2V AP,LAT from 03/16/2023 FINDINGS: BONES: Proximal tibial fracture no barely visible. No bony destructive lesion is seen. Bones appe ar osteopenic consistent with disuse. JOINTS: The knee is normally aligned. Decreased size of joint effusion. Faint chondrocalcinosis. SOFT TISSUE: Normal. IMPRESSION: Healing proximal tibial fracture. DATA REPOSITORY: RADIATION DOSE DELIVERED:
== END 2023-03-31 16:05 | disposition home or self-care (01) ==
LOC: DIORS 16:04
PROVIDERS: PCP Nurse Practitioner Family; Referring Provider Nurse Practitioner Family; Visit Provider Student in an Organized Health Care Education/Training Program
DX: S82.142D Displaced bicondylar fracture of left tibia, subsequent encounter for closed fracture with routine healing; X58.XXXD Exposure to other specified factors, subsequent encounter
CPT/HCPCS: 99213; 73560

== ENCOUNTER 2023-04-28 14:50 | Outpatient (CLI) | payer MEDICARE, BC, SELFPAY ==
--- NOTE | 2023-04-28 14:15 | DI.RAD_ITS ---
Exam(s) XR KNEE LT 2V AP,LAT EXAM: XR KNEE LT 2V AP,LAT INDICATION: left knee f/u. COMPARISON: CR,XR XR KNEE LT 3V AP,LAT,CHAN from 03/07/2023 CR XR KNEE LT 2V AP,LAT from 03/16/2023 CR XR KNEE LT 2V AP,LAT from 03/31/2023 TECHNIQUE: 2D digital imaging was performed. Two views. FINDINGS: The nondisplaced fracture of the proximal tibia is barely visualized. Continued decrease in joint ef fusion. A small enthesophyte is again noted at the proximal fibula. Faint chondrocalcinosis. No ne w abnormalities. DATA REPOSITORY: RADIATION DOSE DELIVERED:
== END 2023-04-28 14:51 | disposition home or self-care (01) ==
LOC: DIORS 14:50
PROVIDERS: PCP Nurse Practitioner Family; Referring Provider Nurse Practitioner Family; Visit Provider Student in an Organized Health Care Education/Training Program
DX: S82.142D Displaced bicondylar fracture of left tibia, subsequent encounter for closed fracture with routine healing; X58.XXXD Exposure to other specified factors, subsequent encounter
CPT/HCPCS: 99213; 73560

== ENCOUNTER → 2023-08-05 13:02 | Outpatient (BNVA) | payer MEDICARE, BC, SELFPAY | PROVIDERS: PCP Nurse Practitioner Family; Referring Provider Nurse Practitioner Family; Visit Provider Physical Therapy Assistant | DX: Z12.11 Encounter for screening for malignant neoplasm of colon (principal); Z80.0 Family history of malignant neoplasm of digestive organs ==

== ENCOUNTER 2023-09-24 10:10 | Day surgery (SDC) | payer MEDICARE, BC, SELFPAY ==
--- NOTE | 2023-09-23 20:37 | HPE_ITS ---
Assessment and Plan Assessment and plan (1) Screen for colon cancer: Status: Acute Assessment and plan: We reviewed the plan for screening colonoscopy today as part of routine health maintenance, as well as the risks and benefits of the procedure. She has provided informed consent, we will move forward with the procedure History of Present Illness History of Present Illness Chief Complaint: Screening colonoscopy Narrative: 73 y/o female with history of left breast cancer (2011) right breast cancer (2022), HTN, hypothyroidism, diverticulitis (s/p colectomy in 2018; Colostomy reversed in 2019 at [facility]), anal stenosis and psoriasis presents for colonoscopy screening pre-op. Her last screening was in 2018, which was unremarkable. She has a family history of colon cancer in her father. She deneis changes in her bowel habits, however describes chronic diarrhea since her colectomy in 2018. D enies any bloody or black tarry stools, abdominal pain, or constipation. She denies constitutional symptoms. Of note Ruthann recently completed radiation to her right breast her last treatment completed on 07/27/23. She had lumpectomy of her right breast in 04/2023. She denies chest pain, palpitations, dyspnea or dyspnea with exertion. She denies prior history or family history of adverse reactions or complications with anesthesia. The patient denies any history of stroke, CA, seizures, bleeding or clotting disorders. She denies having any implanted metal in her body. PFSH All Active Problems Screen for colon cancer (Acute) Arthritis (Chronic 03/23/16) Essential hypertension (Chronic 07/13/13) Hypothyroidism (Chronic 07/13/13) h/o graves and I-131 rx Psoriasis (Chronic) Family history of colon cancer (Chronic 09/25/14) Rectal/anal stenosis (Chronic) Advanced directives, counseling/discussion (Chronic) Reviewed document developed from her chart computer - one clarification made & initialed. Will file in system. H/O bilateral salpingectomy (Acute) 02/28/19 Seasonal allergies (Acute) Abnormal mammogram of right breast (Acute) Medical History Anxiety History of tobacco use Hypokalemia Hypomagnesemia Diarrhea Diverticulitis of large intestine with abscess Psoriasis Breast cancer Diverticulitis Impetigo Surgical History S/P exploratory laparotomy (~02/28/19) Colonoscopy - IV Sedation Extraction of cataract 10/2016,11/2016 Breast, Mastectomy [facility]- RIGHT lumpectomy and s/p radiation completed 07/27/23 [facility]-PARTIAL LEFT BREAST AND LEFT AXILLARY SENTINAL NODE EXCISION ON 08/12/12 Breast, Lumpectomy 2011- had radiation Family History Mother , 90's Essential hypertension Heart disease ASHD, A fib Breast cancer Father , 50's Colon cancer Sister No problems noted. Brother , 60's Heart disease COPD (chronic obstructive pulmonary disease) Alcohol abuse Maternal Grandfather No problems noted. Paternal Grandfather No problems noted. Maternal Grandmother No problems noted. Paternal Grandmother No problems noted. Son No problems noted. Daughter No problems noted. Other Hypothyroidism Social History Smoking/Tobacco Use Status: Former Tobacco Use tobacco type: cigarettes Quit Date: 09/27/04 Tobacco: How many years used: 35 Second Hand Exposure: No Smoking risk assessment performed?: Yes Alcohol Intake: current Alcohol Intake frequency: 0-2 drinks per day Alcohol type: hard liquor Drug use: Never Substance use type: does not use Counseling given: No Counseling provided: none Caregiver/Support person: No Household members: none Housing: house Communication Needs: None Do you need help understanding health information?: Never Pets and animals: Yes Pets and animals: cat(s) Sexually active: No Do you think of yourself as: straight/heterosexual Current gender identity: female What is your relationship status?: How often do you talk on the phone with friends or family?: three or more times per week How often do you get together with friends or relatives?: twice per week How often do you attend denominational or islam services?: decline to answer Do you belong to any clubs or organized social groups?: no Panel score (0-1 are the most socially isolated patients): 1 What type of physical activity do you participate in: walking Duration: 30-45 minutes/day Frequency: 5-6 times per week Dipti/Jainism: Judaism Special dipti needs: No Seatbelt use: always Drive intox or ride w/intox driver education road instructor: No Do you feel safe at home: Yes Do you feel safe in your relationship?: Yes Meds Allergies and Home Medications Allergies Allergy/AdvReac Type Severity Reaction Status Date / Time ciprofloxacin AdvReac Intermediate Nausea, Verified 09/24/23 11:11 vomiting metronidazole AdvReac Intermediate Nausea Verified 09/24/23 11:11 scallop AdvReac Severe GI Upset Uncoded 09/24/23 11:11 Home Medications Medication Instructions Recorded Confirmed Type calcium carbonate 1,000 mg-vitamin See Rx Instructions .Route .COMPLEX 06/02/18 09/24/23 History D3 20 mcg (800 unit) tablet cholecalciferol (vitamin D3) 25 1,000 unit PO DAILY 06/02/18 09/24/23 History mcg (1,000 unit) capsule lisinopril 20 mg tablet 20 mg PO DAILY #90 tabs 01/30/23 09/24/23 Rx bisacodyl 5 mg tablet,delayed 5 mg PO ONCE #4 tabs 08/05/23 09/23/23 Rx release (Dulcolax (bisacodyl)) polyethylene glycol 3350 17 17 g PO ONCE #238 grams 08/05/23 09/24/23 Rx gram/dose oral powder allopurinol 100 mg tablet 200 mg (2 x 100 mg) PO DAILY #180 08/27/23 09/24/23 Rx tabs levothyroxine 125 mcg tablet 125 mcg PO DAILY #90 tabs 08/27/23 09/24/23 Rx Exam Const General: cooperative, healthy appearing and not in acute distress Neck Neck: normal visual inspection, no lymphadenopathy and supple Resp Effort & Inspection: normal respiratory effort Auscultation: clear to auscultation bilaterally Cardio Jugular venous pressure: no JVD Rate: regular rate Rhythm: regular rhythm Heart Sounds: S1 normal and S2 normal GI Inspection: normal to inspection Palpation: soft, no guarding, no hernias and nontender Percussion: normal to percussion Auscultation: normal bowel sounds Neuro General: patient alert, patient awake and patient oriented x3 Psych Appearance: grossly normal
--- NOTE | 2023-09-23 20:39 | W.PM.DSUDISC ---
Date of service: 09/24/23 Time of Service: 12:46 Discharge Plan Disposition Patient Disposition: Home Condition: Good Discharge Details Reason For Visit: Screening colonoscopy Attending Provider: Gael Sahu Primary Care Provider: Ameya Tam Home Meds and New Rx's Prescriptions: Continued cholecalciferol (vitamin D3) 1,000 unit capsule 1,000 unit PO DAILY calcium carbonate-vitamin D3 1,000 mg(2,500 mg)-800 unit tablet See Rx Instructions .ROUTE .COMPLEX Rx Instructions: OTC med bisacodyl [Dulcolax (bisacodyl)] 5 mg tablet,delayed release (DR/EC) 5 mg PO ONCE Qty: 4 0RF Rx Instructions: Take per colonoscopy instructions provided by ordering providers office polyethylene glycol 3350 17 gram/dose powder 17 g PO ONCE Qty: 238 0RF Rx Instructions: Take per colonoscopy instructions provided by ordering providers office lisinopril 20 mg tablet 20 mg PO DAILY Qty: 90 3RF levothyroxine 125 mcg tablet 125 mcg PO DAILY Qty: 90 3RF allopurinol 100 mg tablet 200 mg PO DAILY Qty: 180 3RF Discharge Instructions Instructions: Colorectal Polyps (GEN) Additional Instructions: [place], we were able to complete your colonoscopy today without any difficulty at all. Your prep was great. I can see the area of your relatively new surgical connection. It measures about 20 cm out from your anus. It looks healthy and perfectly normal. I did find a few other scattered diverticula along the length of your remaining large intestine. Certainly nothing that looked worrisome. In addition to all of this, I found 2 polyps. Both are in your rectum, and would be considered small to medium in size. To the naked eye, I did not see any worrisome features of them. I removed both of these polyps, and I will have them tested. Once I know the nature of the polyps, I can inform you with regards to the timing of your next colonoscopy. 1. If tolerated, consume a soft, low fiber diet for 1-2 days. 2[address] Do not drive, drink alcohol, operate machinery, make critical decisions, or do activities that require coordination or balance for 24 hours. 3. Because air was put into your colon during the procedure, expelling air from your rectum (passing gas or farting) is normal. 4. You may not have a bowel movement for 1-3 days because of the colonoscopy prep. This is normal. 5. Go directly to the emergency room if you notice any of the following: Develop chills (warm to touch), or if you have a thermometer and your temperature is above 101 Difficulty breathing or difficultly swallowing Persistent vomiting Severe abdominal pain, other than gas cramps Severe chest pain Black, tarry stools Any bleeding ? exceeding one tablespoon 6. Call your physician if the site where your intravenous was started becomes red, swollen, painful, and warm to touch. 7. Your physician has reviewed your pre-procedure medications. Please continue to take those medications as previously ordered. You will be given specific information/education regarding any changes to your medications before leaving. Activity:: Activity as Tolerated Diet:: As Tolerated Discharge Orders Discharge Orders: Discharge Order (Routine); Ordered 09/23/23 Ordered By: Gael Sahu DS: Diagnosis Discharge Diagnosis (1) Screen for colon cancer: Status: Acute Asessment and Plan: Follow-up on polypectomy results
--- NOTE | 2023-09-23 20:40 | W.COLOREPORT ---
Date of service: 09/24/23 Time of Service: 12:48 Colonoscopy Report Date of procedure: 09/24/23 Pre-op diagnosis general: Screening colonoscopy Post-op diagnosis procedure note: other (Rare diverticula, rectal polyps) Procedure: Colonoscopy with polypectomy Surgeon: Gael Sahu Anesthesia Type: General:No Airway Estimated blood loss (mL): 5 Pathology: other (0.25 cm rectal polyp, 0.5 cm rectal polyp) Complications: None Disposition: same day Indications: Ruthann is a 73-year-old woman with a first-degree family history of colon cancer. She is here for her next screening colonoscopy Prep: Miralax/Dulcolax Procedure Start Time: 12:20 Procedure End Time: 12:36 Retraction Time: 11 Findings: Occasional colonic diverticula, 0.25 cm rectal polyp, 0.5 cm rectal polyp Procedure Description: After the induction of monitored anesthetic care, and with the patient in left lateral decubitus position, I began by performing an external anorectal exam.? Perineum and skin were normal, as was the anal verge.? There was no evidence of external hemorrhoids.? Next, I performed a digital rectal exam.? I did not appreciate any abnormal findings.? Next, I advanced a colonoscope into the rectal vault.? I performed retroflexion.? This was normal.? Using insufflation, I then advanced the colonoscope beyond the rectal folds and into the sigmoid colon before advancing towards the cecum.? Her colorectal anastomosis was encountered around 20 cm from the anus. It was healthy appearing. There were no abnormalities here.? The scope was noted to be in the cecum by identification of the ileocecal valve and appendiceal orifice.? I then began withdrawing the colonoscope using repeated irrigation as necessary for full evaluation of the colonic mucosa. There were just a few scattered diverticula along the length of the large intestine. ?Once the scope was withdrawn to the level of the rectum, great care was taken to examine portions of the rectal folds.? Below the anastomosis were 2 rectal polyps. Both were flat. 1 was 0.25 cm, the other was 0.5 cm. I removed these both completely with cold forceps. There was minimal bleeding. Finally, the scope was withdrawn and the patient was brought to the same-day surgery recovery unit as the anesthetic wore off. ?The findings and instructions were shared with the patient prior to discharge. Franklin Bowel Prep Franklin Bowel Prep Right Colon: 2 Left Colon: 3 Transverse Colon: 3 Total Score: 8
--- NOTE | 2023-09-24 06:36 | ANES.PREOP_ITS ---
General Info Date of Service Date Performed: 09/24/23 Height: 5 ft 1.5 in Weight: 66.848 kg Body Mass Index (BMI): 27.3 Surgical Procedure: Operation Date: 09/24/23 12:05 Proposed Procedure Side Surgeon daphne Sahu MD Meds Allergies and Home Medications Allergies Allergy/AdvReac Type Severity Reaction Status Date / Time ciprofloxacin AdvReac Intermediate Nausea, Verified 09/24/23 11:11 vomiting metronidazole AdvReac Intermediate Nausea Verified 09/24/23 11:11 scallop AdvReac Severe GI Upset Uncoded 09/24/23 11:11 Home Medication Medication Instructions Recorded calcium carbonate 1,000 mg-vitamin See Rx Instructions .Route .COMPLEX 06/02/18 D3 20 mcg (800 unit) tablet cholecalciferol (vitamin D3) 25 1,000 unit PO DAILY 06/02/18 mcg (1,000 unit) capsule lisinopril 20 mg tablet 20 mg PO DAILY #90 tabs 01/30/23 bisacodyl 5 mg tablet,delayed 5 mg PO ONCE #4 tabs 08/05/23 release (Dulcolax (bisacodyl)) polyethylene glycol 3350 17 17 g PO ONCE #238 grams 08/05/23 gram/dose oral powder allopurinol 100 mg tablet 200 mg (2 x 100 mg) PO DAILY #180 08/27/23 tabs levothyroxine 125 mcg tablet 125 mcg PO DAILY #90 tabs 08/27/23 Current Visit Medications: Current Medications Generic Name Dose Route Start Last Admin Trade Name Freq PRN Reason Stop Dose Admin Hyoscyamine Sulfate 0.125 mg 09/23/23 20:41 Hyoscyamine 0.125 Mg Sl/Oral/Chew SL 10/23/23 20:40 DIRECTED PRN Ringer's Solution 1,000 mls @ 80 mls/hr 09/24/23 06:00 IV 09/24/23 23:59 INFUSION [facility] IV Miscellaneous Supplies 1 each 09/24/23 06:00 Iv Access IV 09/24/23 23:59 DIRECTED [facility] Ondansetron HCl 4 mg 09/23/23 20:41 Ondansetron 4 Mg/2 Ml Vial IVP 10/23/23 20:40 Q4H PRN PRN Nausea / Vomiting Sodium Chloride 0 ml 09/24/23 06:00 Normal Saline Flush 10 Ml Syr IV 09/24/23 23:59 PRN PRN Sodium Chloride 0 ml 09/24/23 06:00 Normal Saline 10 Ml Vial IJ 09/24/23 23:59 DIRECTED PRN Sterile Water 0 ml 09/24/23 06:00 Water,Injection,Sterile 10 Ml Vial IJ 09/24/23 23:59 DIRECTED PRN PFSH Active Problems Active Problems: Problem Status Onset Code Screen for colon cancer Z12.11 Arthritis 03/23/16 M19.90 DCIS (ductal carcinoma in situ) of breast 06/29/12 D05.10 Diverticulosis of large intestine without hemorrhage 10/17/15 K57.30 Essential hypertension 07/13/13 I10 Hypothyroidism 07/13/13 E03.9 Psoriasis L40.9 Family history of colon cancer 09/25/[address] Z93.3 Rectal/anal stenosis K62.4 Advanced directives, counseling/discussion Z71.89 H/O bilateral salpingectomy Z90.79 Seasonal allergies J30.2 Abnormal mammogram of right breast R92.8 Medical History Medical History Anxiety History of tobacco use Hypokalemia Hypomagnesemia Diarrhea Diverticulitis of large intestine with abscess Psoriasis Breast cancer Diverticulitis Impetigo Surgical History Surgical History S/P exploratory laparotomy (~02/28/19) Colonoscopy - IV Sedation Extraction of cataract 10/2016,11/2016 Breast, [place] [facility]pect[place] and s/p radiation completed 07/27/23 [facility]PARTIAL LEFT BREAST AND LEFT AXILLARY SENTINAL NODE EXCISION ON 08/12/12 Breast, Lumpectomy 2011- had radiation Tobacco Smoking/Tobacco Use Status: Former Tobacco Use Passive smoking exposure: Yes Second hand exposure: No Alcohol Alcohol Intake: current Alcohol intake frequency: 0-2 drinks per day Alcohol type: hard liquor Substance Use Substance use: Never Substance use type: does not use Counseling provided: none Vital Signs and Lab Results Vital Signs Most Recent Vital Signs in EMR: Temp Pulse Resp BP Pulse Ox 36.8 C 78 16 190/97 H 99 09/24/23 11:14 09/24/23 11:14 09/24/23 11:14 09/24/23 11:14 09/24/23 11:14 Lab Results Blood Type / Crossmatch: No Data to Display Complete Blood Count: No Data to Display Complete Metabolic Panel: No Data to Display Liver Function Panel: No Data to Display Coagulation Panel: No Data to Display Cardiac Panel: No Data to Display Arterial Blood Gas: No Data to Display Venous Blood Gas: No Data to Display Pancreas Panel: No Data to Display Thyroid Panel: No Data to Display Infectious Disease: No Data to Display Blood Cultures: No Data to Display Toxicology Panel: No Data to Display Imaging and Studies Imaging and Studies Study information below may be from another EMR and interpreted by another provider. Please see original notes in EMR for more complete details. EKG Summary: 10/18: sinus, ?LAE, LAD. Anesthesia Assessment and Plan Anesthesia History Personal History: No History of Anesthesia Complications Family History: No Family History of Anesthesia Complications Exercise Tolerance Exercise Tolerance: Metabolic Equivalents>4 Cardiac & Pulmonary Exam Cardiac Exam: Normal S1/S2 Heart Sounds Pulmonary Exam: Clear Bilateral Breath Sounds Implantable Cardiac Device Does patient have a Pacemaker or an ICD?: No Airway Exam Known Difficult Airway: No Mallampati Class: 3 Mouth Opening: Normal (> 3cm) Thyromental Distance: Less than 3 cm Neck Range of Motion: Limited ROM Neck Circumference: Normal Teeth Condition: Normal Dentition ASA Classification ASA Score: ASA 2 Emergency Case?: No NPO Status NPO Status: NPO Clears >2 hours, Solids >8 hours Anesthesia Plan Resuscitation Status: Full Code Anesthesia Technique: General Anesthesia Airway Planned: Natural Airway Monitors Used: Standard Monitors Preoperative Comments:: 73 yo female for colo. Sig PMHx: HTN (lisinopril), hypothyroid (levothyroxine), former smoker, occ EtOH. Previous Anes: - colectomy, glide 3, epidural, scop patch.
[2023-09-24 11:14] VITALS: BP 190/97; PULSE 78; RESP 16; TEMP 36.8; O2SAT 99
[2023-09-24] MEDS: Lactated Ringers 1,000 ML 80 ML IV (11:18)
[2023-09-24 11:23] VITALS: BMI 27.3
--- NOTE | 2023-09-24 12:34 | BOWEL_PTH ---
PATIENT: Idalia Manzo LOC: [facility] U#:[id number] AGE/SX: 73/F ROOM: RE09/24/[address]: Gael Sahu MD : 1950 BED: DIS: 09/24/2023 SPEC #: [id number] RECD: 09/24/23 13:29 STATUS: MAURICIO RE #: [id number] MARTA: 09/24/23 12:[address]: Gael Sahu DEPT: Surgical Specimen RECD BY: Kimberley Dang ENTERED: 09/24/23 13:31 SP TYPE: Bowel OTHR DR: Ameya Chatman DNP Tissues: 1 - BIOPSY BOWEL Procedures: GROSS AND MICRO LEVEL 4 Comments: [id number]
[2023-09-24 12:41] VITALS: BP 123/67; PULSE 89; RESP 16; TEMP 36.6; O2SAT 99
--- NOTE | 2023-09-24 12:53 | W.ANESPOSTOP ---
Postoperative Evaluation Date, Time and Location Date Performed: 09/24/23 Time Performed: 12:50 Patient Location: Day Surgery Unit Vital Signs Most Recent Imported Vital Signs: Most Recent Vital Signs Temp Pulse Resp BP Pulse Ox 36.6 C 89 16 123/67 99 09/24/23 12:41 09/24/23 12:41 09/24/23 12:41 09/24/23 12:41 09/24/23 12:41 Pain Score Most Recent Pain Score: Most Recent Pain Score Pain Level 0 09/24/23 12:41 Assessment Mental Status: Awake (Alert & Oriented to Patient Baseline) Airway and Respiratory Function: Patent airway with normal (patient baseline) respiratory exam Cardiovascular Function: Hemodynamically Stable Hydration Status: Adequately Hydrated Nausea & Vomiting: No Nausea or Vomiting Pain: Pt. Denies Any Pain Peripheral Nerve Block: Patient did not receive a nerve block
[2023-09-24 13:11] VITALS: BP 175/100; PULSE 92; RESP 18; TEMP 36.6; O2SAT 99
== END 2023-09-24 13:35 | disposition home or self-care (01) ==
PROVIDERS: PCP Nurse Practitioner Family; Visit Provider Surgery
PROC: 0DJD8ZZ Inspection of Lower Intestinal Tract, Via Natural or Artificial Opening Endoscopic (ICD-10-PCS; CPT 45378; principal; 2023-09-24 12:00)
DX: Z12.11 Encounter for screening for malignant neoplasm of colon (principal); Z80.0 Family history of malignant neoplasm of digestive organs; K63.5 Polyp of colon; Z93.3 Colostomy status; I10 Essential (primary) hypertension; E03.9 Hypothyroidism, unspecified; Z87.891 Personal history of nicotine dependence
CPT/HCPCS: 45380; 88305; J2001

== ENCOUNTER 2024-01-21 16:16 | Outpatient (REF) | payer MEDICARE, BC, SELFPAY ==
[2024-01-21 21:14] LABS: HCT 42.7 % (36.0-46.0); MCHC 35.1 % (32.0-36.0); MCV 97 fL (80-95); MPV 9.3 fL (8.0-11.0); Platelet Count 175 10^3/uL (130-400); RBC 4.41 10^6/uL (3.93-5.22); RDW 12.9 % (11.7-14.6); RDW-SD 45.9 fL; WBC 5.92 10^3/uL (4.4-10.8)
[2024-01-21 21:33] LABS: ALT 26 U/L (14-59); AST 25 U/L (15-37); Albumin 3.8 g/dL (3.4-5.0); Alkaline Phosphatase 81 U/L (46-116); Anion Gap 7.8 mmol/L (3-11); BUN 15 mg/dL (7-18); Bilirubin, Total 0.5 mg/dL (0.2-1.0); CO2 30.2 mmol/L (21.0-32.0); CREATININE 0.9 mg/dL (0.55-1.02); Calcium 10.2 mg/dL (8.5-10.1); Chloride 105 mmol/L (98-107); Glucose 98 mg/dL (74-106); Potassium 3.7 mmol/L (3.5-5.1); Sodium 143 mmol/L (136-145); TSH (W/Ref FT4) 0.26 uIU/mL (0.36-3.74); Total Protein 6.6 g/dL (6.4-8.2)
[2024-01-21 21:53] LABS: FREE T4 1.31 ng/dL (0.76-1.46)
[2024-01-21 22:29] LABS: Vitamin D 25 Total 54.6 ng/mL (30-100)
== END 2024-01-21 16:17 | disposition home or self-care (01) ==
LOC: LBN 16:16
PROVIDERS: PCP Nurse Practitioner Family; Visit Provider Nurse Practitioner Family
DX: E03.9 Hypothyroidism, unspecified (principal); E55.9 Vitamin D deficiency, unspecified; F10.10 Alcohol abuse, uncomplicated; D05.12 Intraductal carcinoma in situ of left breast
CPT/HCPCS: 80053; 82306; 85027; 84439; 84443

== ENCOUNTER → 2024-01-27 04:17 | Outpatient (CLI) | payer MEDICARE, BC, SELFPAY ==
--- NOTE | 2024-01-27 09:00 | DI.US_ITS ---
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 COMPARISON: US US BREAST RT COMPLETE from 03/05/2023 US US BREAST RT COMPLETE from 01/27/2024 TECHNIQUE: Craniocaudal and mediolateral oblique Full Field Digital Mammography views of both with C omputer Aided Diagnosis followed by Tomosynthesis and right breast ultrasound. FINDINGS: Mammography/Tomosynthesis: Masses/Architectural Distortion: Stable post lumpectomy scarring of the left breast. Microcalcifications: No suspicious pleomorphic-type are seen. Skin Thickening/Nipple Retraction: Skin thickening of the right breast, greater inferiorly. Right breast US: Skin thickening. Shadowing: Area of shadowing in the 6 o'clock position 2 cm from the nipple. This likely represents scarring at this corresponds to the lumpectomy site. Cyst: None. No evidence of abscess. Solid lesions: None seen. Ductal dilation: None. Axilla: No abnormal lymph nodes. IMPRESSION: 1. Post lumpectomy scarring and postradiation skin thickening. 2. Recommend follow-up right mammogram and ultrasound in 3 months. BI-RADS Category 3 - Probably Benign Finding: Recommend follow-up mammography in 3 months Breast Density - Category C - Heterogeneously dense Breast density category C or D implies that the patient has dense breast tissue. Dense breast tissue is very common and is not abnormal but dense breast tissue can make it harder to find cancer on a ma mmogram. Also, dense breast tissue may increase their breast cancer risk. This information about the result of the mammogram report was provided to the patient to raise their awareness. Use this report when you speak with the patient about their risks for breast cancer, which includes their family hist ory. At that time, you may recommend for more screening tests (Ultrasound or MRI) as they might be us eful based on their risk. A negative radiographic report should not delay biopsy if a dominant or clinically suspicious mass is present. Up to ten percent of cancers are not identified on mammography. A negative report may reinforce clinical impression. Adenosis and dense breasts may obscure an underlying neoplasm. False positive reports average 6 to 10%. Patient will receive a letter notifying them of these results.
== END ==
PROVIDERS: PCP Nurse Practitioner Family; Visit Provider Nurse Practitioner Family
DX: N64.4 Mastodynia (principal); D05.12 Intraductal carcinoma in situ of left breast; Z12.31 Encounter for screening mammogram for malignant neoplasm of breast
CPT/HCPCS: 76642; 77062; 77066; G0279

== ENCOUNTER → 2024-02-04 00:07 | Outpatient (CLI) | payer MEDICARE, BC, SELFPAY ==
--- NOTE | 2024-02-04 08:15 | DI.DEXA_ITS ---
Exam(s) XR DEXA BONE DENSITY W/WO HAI EXAM: XR DEXA BONE DENSITY W/WO HAI CLINICAL HISTORY: screening for osteoporosis in postmenopausal status,z78.0,breast ca TECHNIQUE: [email or web address] Horizon C densitometer analysis of left hip, lumbar spine and left forearm. Lat eral survey image of the thoracic and lumbar spine. COMPARISON: CT CT ABDOMEN PELVIS W from 02/26/2019 CR XR PORTABLE CHEST AP from 02/28/2019 FINDINGS: Lateral view of the thoracic and lumbar spine if shows a mild to moderate compression fracture of the superior endplate of L1. This appears unchanged when compared with prior CT. Question of T5 anteri or wedging. Bone mineral density measurements of the lumbar spine correspond to a total T-score of -0.7, in the normal range. Bone mineral density measurements of the left hip correspond to a total T-score of -2.9. The femora l neck T-score is -2.9, in the osteoporotic range.. Theleft forearm bone mineral density measurements correspond to a T-score of the distal 3rd of -2.4, in the osteopenic range.. IMPRESSION: No density of the lumbar spine. Osteoporosis of the hip. Osteopenia of the forearm.
== END ==
PROVIDERS: PCP Nurse Practitioner Family; Visit Provider Nurse Practitioner Family
DX: Z78.0 Asymptomatic menopausal state (principal); D05.12 Intraductal carcinoma in situ of left breast; Z13.820 Encounter for screening for osteoporosis; M81.0 Age-related osteoporosis without current pathological fracture; Z12.31 Encounter for screening mammogram for malignant neoplasm of breast
CPT/HCPCS: 77080

== ENCOUNTER 2024-05-12 08:15 | Emergency (ER) | payer MEDICARE, BC, SELFPAY ==
[2024-05-12] VITALS (10 sets, daily range): BP systolic 131–162; BP diastolic 71–79; PULSE 86–98; RESP 15; TEMP 36.8; O2SAT 94–100
--- NOTE | 2024-05-12 08:45 | RT.EKG_ITS ---
APPROVED REPORT Exam: Resting ECG Reason for Exam: Abd pain Patient Location: E HR:88 bpm ECG Measurements Heart Rate 88 AXIS RI 132 P 31 QRSd 73 QRS -32 QT 380 T 5 QTc 461 Conclusion Sinus rhythm Isolated T-wave inversion lead III No STEMI
--- NOTE | 2024-05-12 09:00 | DI.CT_ITS ---
Exam(s) CT ABDOMEN PELVIS W EXAM: CT ABDOMEN PELVIS W CLINICAL HISTORY: Abd pain, N/V/D, eval SBO vs disverticulitis TECHNIQUE: Imaging Protocol: Axial computed tomography images with coronal and sagittal reformatted images were created and reviewed. CONTRAST MATERIAL: Intravenous: Omnipaque 350 Contrast volume:100 mL Oral: No COMPARISON: CT CT ABDOMEN PELVIS W from 02/26/2019 FINDINGS: ABDOMEN: Lung Bases: Normal where visualized. Liver: Normal density. No measurable mass. Portal, Superior Mesenteric, and Splenic Veins: Unremarkable. Gallbladder and Biliary Tract: Cholelithiasis. No biliary ductal dilatation. Pancreas: Normal density, no abnormal calcifications or inflammatory process. Spleen: Normal. Adrenals: No masses seen. Kidneys: Normal size, contour and axis. No radiodense stones or obstructive uropathy. No masses seen. Abdominal Aorta: Abdominal portion non-dilated. Atherosclerotic calcification is present. Bowel: There is wall thickening seen in the distal jejunum and ileum. There also is mild wall thicke jasen seen in the sigmoid colon. There is an anastomosis seen in the mid sigmoid colon. There is div erticulosis of the colon but no evidence of acute diverticulitis. There is no evidence of appendicit is. Peritoneal Cavity: There is a small amount of abdominal and pelvic ascites. No free air.No focal flu id collection is seen to suggest an abscess. Lymph Nodes: Within normal limits. Bones: Within normal limits for the patient's age. There is L5 spondylolysis and grade 1 spondylolis thesis of L5 on S1. There is an old L1 compression fracture deformity. Soft Tissues: Unremarkable. PELVIS: Bladder: The urinary bladder is incompletely distended limiting evaluation. Reproductive Organs: Unremarkable as visualized. Lymph Nodes: Within normal limits. Bones: Within normal limits for the patient's age. IMPRESSION: 1. Diffuse bowel wall thickening involving the distal jejunum and ileum. There also is mild bowel wa ll thickening seen in the sigmoid colon. This may represent an inflammatory bowel disease. Infectio n should also be considered. Please correlate with patient's clinical history. There is no pneumope ritoneum or abscess. 2. Small amount of abdominal and pelvic ascites. 3. Colonic diverticulosis without evidence of acute diverticulitis. 4. No evidence of bowel obstruction. 5. Cholelithiasis. No biliary ductal dilatation. RADIATION DOSE DELIVERED: Total DLP DATA REPOSITORY: All CT scans at this facility are submitted to the National Radiology Data Registry (NRDR) Dose Index Registry (DIR) with the [employer] (ACR). RADIATION OPTIMIZATION: All CT scans at this facility use at least one of these dose optimization te chniques: automated exposure control; mA and/or kV adjustment per patient size (includes targeted exa ms where dose is matched to clinical indication); or iterative reconstruction.
--- NOTE | 2024-05-12 09:05 | ED.GENADUL_ITS ---
Discharge Plan Disposition Patient Disposition: Home Discharge Details Clinical Impression: Bowel wall thickening, Essential hypertension, Hypothyroidism, Abdominal pain, Nausea & vomiting Primary Care Provider: Ameya Tam ED Provider: Marleny Nunez Home Meds and New Rx's Prescriptions: No Action cholecalciferol (vitamin D3) 1,000 unit capsule 1,000 unit PO DAILY calcium carbonate-vitamin D3 1,000 mg(2,500 mg)-800 unit tablet See Rx Instructions .ROUTE .COMPLEX Rx Instructions: OTC med levothyroxine 125 mcg tablet 125 mcg PO DAILY Qty: 90 3RF allopurinol 100 mg tablet 200 mg PO DAILY Qty: 180 3RF lisinopril 20 mg tablet 20 mg PO DAILY Qty: 90 3RF Discharge Instructions Instructions: Abdominal Pain, Adult ED Additional Instructions: You were seen in the emergency department today for evaluation of abdominal pain with nausea, vomiting, and diarrhea. In our department you had a full physical examination performed, had laboratory studies that were largely reassuring, and had a CT scan of your abdomen that did show some thickening of the bowel wall. We often see this with conditions such as inflammatory bowel disease, but this can also be seen with infections such as viruses and bacteria that commonly cause vomiting and diarrhea. As we discussed, you are desiring to attempt to go home and manage her symptoms conservatively, we discussed good hydration and nutrition with a bland diet until your nausea and diarrhea improved. You need to be evaluated by your primary care provider in the next few days to discuss this visit and any symptoms that change, worsen, or persist. If you develop a sudden change or worsening of your abdominal pain, if you have nausea and vomiting that prevent you from eating and drinking, if you develop a fever or noticed blood in your stool, these are all reasons to return to the emergency department immediately for reevaluation. Thank you for allowing us to be part of your care. HPI General Date/Time Provider Initiated Documentation: 05/12/24 08:29 . Limitations to Documentation: no limitations . Information obtained by: patient . HPI Narrative: MDM: In brief, this is a 74-year-old female patient with a past medical history significant for diverticulosis with diverticulitis complicated by bowel resection, colostomy and colostomy reversal, as well as a history of breast cancer in remission, hypothyroidism, and hypertension. She is presenting with 3 days of episodic abdominal pain and bloating associated with large volumes of gas, low volumes of nonbloody diarrhea, and nausea with vomiting. My differential includes but is not limited to bowel obstruction, certainly considered perforation and peritonitis, mesenteric ischemia was considered though less consistent with the patient's history and physical examination. I considered diverticulitis, appendicitis, colitis, gastroenteritis. Considered other less likely etiologies of abdominal pain to include gastritis/PUD, pancreatitis, hepatitis, cholecystitis, urinary tract infection, nephrolithiasis. Patient is reassuringly hemodynamically appropriate though I am concerned by the diffuse tenderness and guarding in her abdomen. We will obtain laboratory studies to include CBC, CMP, lipase, lactate, and UA. I will obtain an EKG as well as a CT of her abdomen with contrast to better characterize any abnormalities. ED Course: I reviewed the patient's laboratory studies, which show no leukocytosis, anemia, or thrombocytopenia. Patient's lactate is 1.5 which is not concerning the elevated. Electrolyte panel is without significant electrolyte abnormalities, evidence of kidney dysfunction or liver disease. I independently reviewed the patient's CT which does show diffuse wall thickening of the small bowel, and discussed this finding with the radiologist. The patient does not have a history of inflammatory bowel disease, though infectious etiologies are certainly on the differential. The radiologist did not feel that this was consistent with mesenteric ischemia and given the low lactate I do not feel that there is an indication at this time to pursue emergent CTA. On reassessment the patient has remained hemodynamically appropriate and reports improvement in her abdominal pain. She has not had nausea or vomiting while in our emergency department. We shared the results of the studies and had a shared decision-making conversation with the patient regarding neck steps in care, and the patient is desiring of discharge home. I feel that this is an appropriate neck step and counseled the patient on good hydration and nutrition with a bland diet, and close follow-up with her primary care provider in the next few days to discuss this visit and any symptoms that change, worsen, or persist. We discussed return precautions, which include sudden change or worsening of her abdominal pain, fever, change in mental status, inability to eat or drink, bloody stool, or any other symptoms that cause her concern. At this time, the patient has had a full medical evaluation and is safe for discharge to home. They are hemodynamically stable, ambulatory, and tolerating PO. They are understanding of the follow-up plan and return precautions. They left our facility without incident. Marleny Nunez MD HPI: This is a 74-year-old female patient with a history of hypertension, hypothyroidism, breast cancer in remission, and diverticulosis with an episode of diverticulitis, complicated by the need for bowel resection, colostomy, followed by colostomy revision. She is presenting for evaluation of nausea with vomiting and diarrhea. She reports that her symptoms started Wednesday night, when she was woken from sleep with an urge to go to the bathroom. She passed a low volume of nonbloody diarrhea and a large volume of gas, and had belching and nonbloody, nonbilious emesis. She reports that she has been eating very lightly over the last several days, has been able to tolerate small sips of water, but had worsening of her symptoms last night prompting her presentation to care today. She did have a brief improvement in her symptoms with Gas-X [id number]. She has not had fevers or chills, chest pain, back pain, dysuria or hematuria. She reports that she passed a low volume of liquid stool this morning. The patient states that this feels slightly like her last episode of diverticulitis but she is more concerned for obstruction given the bloating and large volume of gas that she was experiencing. Exam: Gen: Awake and alert, in no apparent distress HEENT: Non-icteric sclera Neck: Supple Lungs: No apparent respiratory distress, normal respiratory effort. Lung sounds clear and equal bilaterally CV: Appears well perfused, heart with regular rate and rhythm, strong distal pulses Abdomen: Non-distended, soft, diffusely tender to palpation with guarding, no rigidity or rebound MSK: Moves 4 extremities without apparent limitation in ROM Skin: Visualized skin without rashes, cyanosis. Neuro: Normal Gait, no obvious focal deficits or facial asymmetry. Speaks in full, clear sentences. Psych: Appropriate for situation. Related Data Home Medications ?Medication ?Instructions ?Recorded ?Confirmed calcium carbonate 1,000 mg-vitamin See Rx Instructions .Route .COMPLEX 06/02/18 05/12/24 D3 20 mcg (800 unit) tablet cholecalciferol (vitamin D3) 25 1,000 unit PO DAILY 06/02/18 05/12/24 mcg (1,000 unit) capsule allopurinol 100 mg tablet 200 mg (2 x 100 mg) PO DAILY #180 08/27/23 05/12/24 tabs levothyroxine 125 mcg tablet 125 mcg PO DAILY #90 tabs 08/27/23 05/12/24 lisinopril 20 mg tablet 20 mg PO DAILY #90 tabs 02/29/24 05/12/24 Previous Rx's ?Medication ?Instructions ?Recorded allopurinol 100 mg tablet 200 mg (2 x 100 mg) PO DAILY #180 08/27/23 tabs levothyroxine 125 mcg tablet 125 mcg PO DAILY #90 tabs 08/27/23 lisinopril 20 mg tablet 20 mg PO DAILY #90 tabs 02/29/24 Allergies Allergy/AdvReac Type Severity Reaction Status Date / Time ciprofloxacin AdvReac Intermediate Nausea, Verified 01/21/24 14:04 vomiting metronidazole AdvReac Intermediate Nausea Verified 01/21/24 14:04 scallop AdvReac Severe GI Upset Uncoded 01/21/24 14:04 General Stated Complaint: Abd Prob ROOPA: 3 Course Vital Signs Vital signs: Vital Signs Temperature 36.8 C 05/12/24 08:22 Pulse 98 H 05/12/24 08:22 Respiratory Rate 15 05/12/24 08:22 Blood Pressure 131/79 05/12/24 08:22 Pulse Oximetry 99 05/12/24 08:22 Temperature 36.8 C 05/12/24 08:26 Temperature Source Temporal Artery Scan 05/12/24 08:26 Pulse 98 H 05/12/24 08:26 Respiratory Rate 15 05/12/24 08:26 Blood Pressure 131/79 05/12/24 08:26 Blood Pressure Position Sitting 05/12/24 08:26 Pulse Oximetry 99 05/12/24 08:26 Oxygen Delivery Method Room Air 05/12/24 08:26 Oxygen Flow Rate 0 05/12/24 08:26 Pain Level 7 05/12/24 08:26 Comment Pain fluctuates 05/12/24 08:26 Medical Decision Making Quality:SDOH Health Related Social Needs: Health related social needs inadequate housing Health related social needs details N/A PFSH All Active Problems (Updated 05/12/24 @ 13:56 by Marleny Nunez MD) Nausea & vomiting (Acute) Abdominal pain (Acute) Bowel wall thickening (Acute) Breast pain, right (Acute) Screen for colon cancer (Acute) Arthritis (Chronic 03/23/16) Essential hypertension (Chronic 07/13/13) Hypothyroidism (Chronic 07/13/13) h/o graves and I-131 rx Psoriasis (Chronic) Family history of colon cancer (Chronic 09/25/14) Rectal/anal stenosis (Chronic) Advanced directives, counseling/discussion (Chronic) 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 Will file in system. H/O bilateral salpingectomy (Acute) 02/28/19 Seasonal allergies (Acute) Abnormal mammogram of right breast (Acute) Medical History Anxiety History of tobacco use Hypokalemia Hypomagnesemia Diarrhea Diverticulitis of large intestine with abscess Psoriasis Breast cancer Diverticulitis Impetigo Surgical History History of colonoscopy (~08/2023) path sent S/P exploratory laparotomy (~02/28/19) Colonoscopy - IV Sedation Extraction of cataract 10/2016,11/2016 Breast, Mastectomy [facility] [place]- RIGHT lumpectomy and s/p radiation completed 07/27/23 [facility] [place]-PARTIAL LEFT BREAST AND LEFT AXILLARY SENTINAL NODE EXCISION ON 08/12/12 Breast, Lumpectomy 2011- had radiation Family History Mother , 90's Essential hypertension Heart disease ASHD, A fib Breast cancer Father , 50's Colon cancer Sister No problems noted. Brother , 60's Heart disease COPD (chronic obstructive pulmonary disease) Alcohol abuse Maternal Grandfather No problems noted. Paternal Grandfather No problems noted. Maternal Grandmother No problems noted. Paternal Grandmother No problems noted. Son No problems noted. Daughter No problems noted. Other Hypothyroidism Social History (Updated 01/26/24 @ 14:46 by Kathleen Mckee) Smoking/Tobacco Use Status: Former Tobacco Use tobacco type: cigarettes Quit Date: 09/27/04 Tobacco: How many years used: 35 Second Hand Exposure: No Smoking risk assessment performed?: Yes Alcohol Intake: current Alcohol Intake frequency: 3 or more drinks per day Alcohol type: hard liquor Drug use: Never Substance use type: does not use Counseling given: No Counseling provided: none Caregiver/Support person: No Household members: none Housing: house Communication Needs: None Do you need help understanding health information?: Never Pets and animals: Yes Pets and animals: cat(s) Sexually active: No Do you think of yourself as: straight/heterosexual Current gender identity: female What is your relationship status?: How often do you talk on the phone with friends or family?: three or more times per week How often do you get together with friends or relatives?: twice per week How often do you attend alevism or confucianist services?: decline to answer Do you belong to any clubs or organized social groups?: no Panel score (0-1 are the most socially isolated patients): 1 What type of physical activity do you participate in: walking Duration: 30-45 minutes/day Frequency: 5-6 times per week Dipti/Yazdanism: Taoist Special dipti needs: No Seatbelt use: always Drive intox or ride w/intox entry level truck driver: No Do you feel safe at home: Yes Do you feel safe in your relationship?: Yes
[2024-05-12 09:17] LABS: Lactate 1.5 mmol/L (0.6-1.4)
[2024-05-12 09:19] LABS: Abs Immature Grans 0.07 10^3/uL (0.0-0.06); Absolute Basophil Count 0.06 10^3/uL (0.0-0.2); Absolute Eosinophil Count 0.26 10^3/uL (0.0-0.7); Absolute Lymphocyte Count 0.84 10^3/uL (1.2-3.4); Absolute Monocyte Count 0.92 10^3/uL (0.1-0.8); Absolute Neutrophil Count 8.01 10^3/uL (1.2-6.7); Basophils % 0.6 %; Eosinophils % 2.6 %; HCT 48.4 % (36.0-46.0); HGB 16.5 g/dL (11.2-15.7); Immature Grans % 0.7 %; Lymphocytes % 8.3 %; MCH 34.5 pg (27.0-33.0); MCHC 34.1 % (32.0-36.0); MCV 101 fL (80-95); MPV 8.8 fL (8.0-11.0); Monocytes % 9.1 %; Neutrophils % 78.7 %; Platelet Count 172 10^3/uL (130-400); RBC 4.78 10^6/uL (3.93-5.22); RDW 12.9 % (11.7-14.6); RDW-SD 48.4 fL; WBC 10.16 10^3/uL (4.4-10.8)
[2024-05-12 11:09] LABS: ALT 23 U/L (14-59); AST 17 U/L (15-37); Albumin 3.5 g/dL (3.4-5.0); Alkaline Phosphatase 67 U/L (46-116); Anion Gap 11.8 mmol/L (3-11); BUN 15 mg/dL (7-18); Bilirubin, Total 1.14 mg/dL (0.2-1.0); CO2 26.2 mmol/L (21.0-32.0); CREATININE 1.1 mg/dL (0.55-1.02); Chloride 101 mmol/L (98-107); Estimated GFR 52.73 (mL/min/1.73m2); Glucose 122 mg/dL (74-106); Potassium 3.7 mmol/L (3.5-5.1); Sodium 139 mmol/L (136-145); Total Protein 6.8 g/dL (6.4-8.2); Troponin I < 50 ng/L (< or =60)
[2024-05-12] MEDS: MAGNESIUM SULFATE 2 GM/50 ML BAG IVINF (11:53)
[2024-05-12] MEDS: Normal Saline - Diluent 50 ML VIAL IJ (12:36)
[2024-05-12] MEDS: Omnipaque 350 MG/ML 100 ML BTL IJ (12:37)
== END 2024-05-12 14:05 | disposition home or self-care (01) ==
PROVIDERS: Emergency Provider Emergency Medicine; PCP Nurse Practitioner Family
DX: R11.2 Nausea with vomiting, unspecified (principal); R19.7 Diarrhea, unspecified; K63.9 Disease of intestine, unspecified; Z87.19 Personal history of other diseases of the digestive system
CPT/HCPCS: 36415; 80053; 93005; 96365; 96366; 99285; 74177; 81003; 83605; 83735; 84484; 85025; 93010; 99283; J3475; J3490

== ENCOUNTER 2024-07-25 16:54 | Outpatient (CLI) | payer MEDICARE, BC, SELFPAY ==
--- NOTE | 2024-07-25 16:45 | RT.EKG_ITS ---
APPROVED REPORT Exam: Resting ECG Reason for Exam: chest discomfort Patient Location: O HR:162 bpm ECG Measurements Heart Rate 162 AXIS KS [id number] P [id number] QRSd 80 QRS -31 QT 299 T 35 QTc 492 Conclusion Atrial fibrillation with rapid V-rate...A-rate 256 ventricular premature complex Probable left ventricular hypertrophy...multiple LVH criteria
== END 2024-07-25 16:55 | disposition home or self-care (01) ==
LOC: DI.CM 16:54
PROVIDERS: PCP Nurse Practitioner Family; Visit Provider Physician Assistant
DX: R07.89 Other chest pain (principal)
CPT/HCPCS: 93010

== ENCOUNTER 2024-07-25 17:49 | Emergency (ER) | payer MEDICARE, BC, SELFPAY ==
[2024-07-25] VITALS (110 sets, daily range): BP systolic 110–165; BP diastolic 77–102; PULSE 86–125; RESP 10–33; TEMP 36.9–37.1; O2SAT 94–99
--- NOTE | 2024-07-25 17:45 | RT.EKG_ITS ---
APPROVED REPORT Exam: Resting ECG Reason for Exam: Fast Heart Rate Patient Location: E HR:106 bpm ECG Measurements Heart Rate 106 AXIS RI [id number] P [id number] QRSd 75 QRS -19 QT 337 T 21 QTc 448 Conclusion Atrial fibrillation...V-rate 76-117, irreg A-activity Ventricular premature complex...V complex w/ short R-R interval Left ventricular hypertrophy...multiple voltage criteria
--- NOTE | 2024-07-25 18:11 | ED.GENADUL_ITS ---
Discharge Plan Disposition Specific Acute Inpt Facility: [facility] Condition: Serious Discharge Details Chief Complaint: Dizzy/Sync Clinical Impression: Atrial fibrillation with RVR, Elevated troponin Primary Care Provider: Ameya Tam ED Provider: Vincenzo Colon Home Meds and New Rx's Prescriptions: No Action cholecalciferol (vitamin D3) 1,000 unit capsule 1,000 unit PO DAILY calcium carbonate-vitamin D3 1,000 mg(2,500 mg)-800 unit tablet See Rx Instructions .ROUTE .COMPLEX Rx Instructions: OTC med levothyroxine 125 mcg tablet 125 mcg PO DAILY Qty: 90 3RF allopurinol 100 mg tablet 200 mg PO DAILY Qty: 180 3RF lisinopril 20 mg tablet 20 mg PO DAILY Qty: 90 3RF HPI General Mode of arrival: EMS . Date/Time Provider Initiated Documentation: 07/25/24 17:57 . Limitations to Documentation: no limitations . Information obtained by: patient . History of Present Illness 74 year old F presents to the emergency department with the chief complaint of lightheaded, described as moderate, Patient started experiencing this hour(s) (3) and it has been constant. No relieving factors improve symptom(s), No exacerbating factors reported . Patient notes denies chest pain and shortness of breath. Patient did receive the following treatments prior to arrival, none Related Data Home Medications ?Medication ?Instructions ?Recorded ?Confirmed calcium 1,000 mg (as See Rx Instructions .Route .COMPLEX 06/02/18 07/25/24 carbonate)-vitamin D3 20 mcg (800 unit) tablet cholecalciferol (vitamin D3) 25 1,000 unit PO DAILY 06/02/18 07/25/24 mcg (1,000 unit) capsule allopurinol 100 mg tablet 200 mg (2 x 100 mg) PO DAILY #180 08/27/23 07/25/24 tabs levothyroxine 125 mcg tablet 125 mcg PO DAILY #90 tabs 08/27/23 07/25/24 lisinopril 20 mg tablet 20 mg PO DAILY #90 tabs 02/29/24 07/25/24 Previous Rx's ?Medication ?Instructions ?Recorded allopurinol 100 mg tablet 200 mg (2 x 100 mg) PO DAILY #180 08/27/23 tabs levothyroxine 125 mcg tablet 125 mcg PO DAILY #90 tabs 08/27/23 lisinopril 20 mg tablet 20 mg PO DAILY #90 tabs 02/29/24 Allergies Allergy/AdvReac Type Severity Reaction Status Date / Time ciprofloxacin AdvReac Intermediate Nausea, Verified 07/25/24 18:00 vomiting metronidazole AdvReac Intermediate Nausea Verified 07/25/24 18:00 scallop AdvReac Severe GI Upset Uncoded 07/25/24 18:00 General Stated Complaint: Dizzy/Sync ROOPA: 3 Review of Systems All systems reviewed & are unremarkable except as noted in HPI and below Constitutional Constitutional: Denies chills, Denies fever(s) and Denies weakness Cardiovascular Cardiovascular: Denies chest pain, Reports lightheadedness and Denies dyspnea Respiratory Respiratory: Denies cough and Denies dyspnea Gastrointestinal Gastrointestinal: Denies abdominal pain, Denies nausea and Denies vomiting Neurologic Neurologic: Denies weakness Exam Const General: no acute distress Orientation: alert HENPR Head: normal to inspection Ears: external ears normal General nose exam: external nose normal Mouth: moist mucous membranes Eyes General: appearance normal, both eyes and all related structures Neck Neck: normal visual inspection Resp Effort & Inspection: normal respiratory effort and able to speak in complete sentences Auscultation: clear to auscultation bilaterally Cardio Jugular venous pressure: no JVD Rate: tachycardic Rhythm: abnormal rhythm Heart Sounds: no murmurs Skin General skin exam: no rashes or lesions noted Neuro General: patient alert and patient oriented x3 Extrem General: normal to inspection Psych Mental Status: mental status grossly normal Course Vital Signs Vital signs: Vital Signs Temperature 36.9 C 07/25/24 17:47 Pulse 109 H 07/25/24 17:47 Respiratory Rate 18 07/25/24 17:47 Blood Pressure 146/83 H 07/25/24 17:47 Pulse Oximetry 99 07/25/24 17:47 Temperature 36.9 C 07/25/24 17:47 Pulse 109 H 07/25/24 17:47 Respiratory Rate 18 07/25/24 17:47 Blood Pressure 146/83 H 07/25/24 17:47 Pulse Oximetry 99 07/25/24 17:47 Oxygen Delivery Method Room Air 07/25/24 17:47 Oxygen Flow Rate 0 07/25/24 17:47 Medical Decision Making 74-year-old female with a history of hypertension, psoriasis who comes in with complaints of sudden onset lightheadedness and palpitations while she was shopping at [employer] went to [facility] and was found to be in A-fib with RVR which has never been in before so was referred here. She was given 5 of IV metoprolol and also 10 of IV diltiazem which brought her heart rate down from the 160s to the 120s. She says she feels better now, denies ever having any chest pain or chest pressure, no difficulty breathing. She is alert oriented x 4 on arrival and appears well. She is in A-fib with rate still ranging from 1 10-1 30. Will give an additional 10 mg of IV diltiazem and placed on a drip. Will check a CBC CMP troponins and chest x-ray. She has no pleuritic chest pain and no calf tenderness or leg swelling so doubt PE. Patient stable, heart rates now in the low 100s, labs remarkable for troponin over 800, will obtain delta troponin. She still denies any chest pain or chest pressure. Magnesium is 1.2 so we will replete. no acute findings on cxr delta trop over 1200, patient pain free, will consult [facility] cardiology Patient stable, spoke with Dr. Murrell [facility] credit union field examiner who reviewed the case and accepted to their facility, per transfer center they will have beds free tonight. Patient updated and is agreeable with plan.Dr. Lester is the accepting provider Differential Diagnosis Differential Diagnosis: electrolyte abnormality, nstemi Lab Data Lab results reviewed: Yes I reviewed the patient's lab results. ECG Data Attestation: I personally reviewed and interpreted this ECG (s) as follows: Prior ECG tracings: not available for review Interpretation: A-fib, rate of 106, QTc 448, no STEMI Quality:SDOH Health Related Social Needs: Health related social needs inadequate housing(Z59.1) Health related social needs details N/A Critical Care Time Critical Care Time Critical Care Time: Yes Total Critical Care Time: 60 (minutes) Attestation: Time spent on lab review, hemodynamic monitoring and frequent reassessments in a patient with A-fib with rapid ventricular response requiring IV diltiazem and chance to deteriorate at any time. 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 Will file in system. H/O bilateral salpingectomy (Acute) 02/28/19 Seasonal allergies (Acute) Abnormal mammogram of right breast (Acute) Medical History Anxiety History of tobacco use Hypokalemia Hypomagnesemia Diarrhea Diverticulitis of large intestine with abscess Psoriasis Breast cancer Diverticulitis Impetigo Surgical History History of colonoscopy (~08/2023) path sent S/P exploratory laparotomy (~02/28/19) Colonoscopy - IV Sedation Extraction of cataract 10/2016,11/2016 Breast, Mastectomy [facility]- RIGHT lumpectomy and s/p radiation completed 07/27/23 [facility]-PARTIAL LEFT BREAST AND LEFT AXILLARY SENTINAL NODE EXCISION ON 08/12/12 Breast, Lumpectomy 2011- had radiation Family History Mother , 90's Essential hypertension Heart disease ASHD, A fib Breast cancer Father , 50's Colon cancer Sister No problems noted. Brother , 60's Heart disease COPD (chronic obstructive pulmonary disease) Alcohol abuse Maternal Grandfather No problems noted. Paternal Grandfather No problems noted. Maternal Grandmother No problems noted. Paternal Grandmother No problems noted. Son No problems noted. Daughter No problems noted. Other Hypothyroidism Social History Smoking/Tobacco Use Status: Former Tobacco Use tobacco type: cigarettes Quit Date: 09/27/04 Tobacco: How many years used: 35 Second Hand Exposure: No Smoking risk assessment performed?: Yes Alcohol Intake: current Alcohol Intake frequency: 3 or more drinks per day Alcohol type: hard liquor Drug use: Never Substance use type: does not use Counseling given: No Counseling provided: none Caregiver/Support person: No Household members: none Housing: house Communication Needs: None Do you need help understanding health information?: Never Pets and animals: Yes Pets and animals: cat(s) Sexually active: No Do you think of yourself as: straight/heterosexual Current gender identity: female What is your relationship status?: How often do you talk on the phone with friends or family?: three or more times per week How often do you get together with friends or relatives?: twice per week How often do you attend protestant or restoration services?: decline to answer Do you belong to any clubs or organized social groups?: no Panel score (0-1 are the most socially isolated patients): 1 What type of physical activity do you participate in: walking Duration: 30-45 minutes/day Frequency: 5-6 times per week Dipti/Quaker: Cheondoism Special dipti needs: No Seatbelt use: always Drive intox or ride w/intox class b truck driver: No Do you feel safe at home: Yes Do you feel safe in your relationship?: Yes
[2024-07-25 18:22] LABS: Abs Immature Grans 0.05 10^3/uL (0.0-0.06); Absolute Basophil Count 0.04 10^3/uL (0.0-0.2); Absolute Eosinophil Count 0.25 10^3/uL (0.0-0.7); Absolute Lymphocyte Count 0.96 10^3/uL (1.2-3.4); Absolute Monocyte Count 0.87 10^3/uL (0.1-0.8); Absolute Neutrophil Count 5.73 10^3/uL (1.2-6.7); Basophils % 0.5 %; Eosinophils % 3.2 %; HCT 45.1 % (36.0-46.0); HGB 15.5 g/dL (11.2-15.7); Immature Grans % 0.6 %; Lymphocytes % 12.2 %; MCH 34.8 pg (27.0-33.0); MCHC 34.4 % (32.0-36.0); MCV 101 fL (80-95); MPV 8.6 fL (8.0-11.0); Neutrophils % 72.5 %; Platelet Count 147 10^3/uL (130-400); RBC 4.46 10^6/uL (3.93-5.22); RDW 13.3 % (11.7-14.6); RDW-SD 50.1 fL
--- NOTE | 2024-07-25 18:30 | DI.RAD_ITS ---
Exam(s) XR PORTABLE CHEST AP EXAM: XR PORTABLE CHEST AP CLINICAL HISTORY: chest pain. TECHNIQUE: 2D digital imaging was performed. COMPARISON: CT CT ABDOMEN PELVIS W from 05/12/2024 FINDINGS: Single AP portable view. Heart size is upper normal. The mediastinum is not widened. Lungs are clear. No infiltrates nor obvious pleural effusions. IMPRESSION: No acute pulmonary findings on this single AP portable view of the chest. DATA REPOSITORY: RADIATION DOSE DELIVERED:
[2024-07-25 18:35] LABS: PTT Activated 29.7 sec (23.6-32.8); Prothrombin Time 10.2 sec (9.1-11.1)
[2024-07-25] MEDS: dilTIAZem 25 MG/5 ML VIAL 10 MG IVP (18:35)
[2024-07-25] MEDS: dilTIAZem 125 MG in Normal Saline 100 ML IV (18:36)
[2024-07-25 18:38] LABS: ALT 50 U/L (14-59); AST 93 U/L (15-37); Albumin 3.3 g/dL (3.4-5.0); Alkaline Phosphatase 85 U/L (46-116); Anion Gap 8.4 mmol/L (3-11); BUN 11 mg/dL (7-18); CO2 27.6 mmol/L (21.0-32.0); CREATININE 0.8 mg/dL (0.55-1.02); Calcium 10.2 mg/dL (8.5-10.1); Chloride 108 mmol/L (98-107); Estimated GFR 77.27 (mL/min/1.73m2); Glucose 100 mg/dL (74-106); Magnesium 1.2 mg/dL (1.8-2.4); Potassium 4.4 mmol/L (3.5-5.1); Sodium 144 mmol/L (136-145); Total Protein 6.8 g/dL (6.4-8.2)
[2024-07-25 18:39] LABS: Troponin I 806 ng/L (<or=51)
[2024-07-25] MEDS: MAGNESIUM SULFATE 2 GM/50 ML BAG IV_INF (19:42)
[2024-07-25] MEDS: Heparin in 0.45% NaCl 25,000 UNIT/250 ML BAG 8 UNIT IVINF (19:42)
[2024-07-25] MEDS: Aspirin 81 MG CHEW 324 MG CH (19:48)
[2024-07-25 20:14] LABS: Troponin I 1242 ng/L (<or=51)
[2024-07-25 22:27] LABS: Troponin I 1222 ng/L (<or=51)
--- NOTE | 2024-07-26 07:23 | NUR.NOTE ---
Access chart to reconcile EKG orders with EKG's in [facility]. Duplicate order cancelled. Nursing Note:
== END 2024-07-25 23:40 | disposition short-term general hospital (02) ==
PROVIDERS: Emergency Provider Emergency Medicine; PCP Nurse Practitioner Family
DX: I48.91 Unspecified atrial fibrillation (principal); R79.89 Other specified abnormal findings of blood chemistry; I10 Essential (primary) hypertension; Z87.891 Personal history of nicotine dependence
CPT/HCPCS: 80053; 93005; 96365; 96366; 96367; 96375; 99285; 71045; 83735; 84484; 85025; 85610; 85730; 93010; J1644; J3475

== ENCOUNTER 2024-08-02 02:10 | Outpatient (CLI) | payer MEDICARE, BC, SELFPAY ==
--- NOTE | 2024-08-02 | DI.US_ITS ---
Exam(s) MG MAMMO DIAGNOSTIC UNI US BREAST RT LIMITED EXAM: MG MAMMO DIAGNOSTIC UNI and U/S breast RT limited CLINICAL HISTORY: S/P RADIOTHERAPY, Z92.3, RT THICKENING SKIN BREAST,N64.59, 3 MO F/U ABNL. TECHNIQUE: Craniocaudal and mediolateral oblique Full Field Digital Mammography views of the right b reast with Computer Aided Diagnosis followed by Tomosynthesis and right breast ultrasound. COMPARISON: Comparison is made with prior examinations. FINDINGS: Mammography/Tomosynthesis: Masses/Architectural Distortion: The patient has had a prior right breast lumpectomy. No suspicious masses are seen. Microcalcifictions: No suspicious pleomorphic-type are seen. Skin Thickening/Nipple Retraction: There is stable skin thickening likely reflecting therapy. Limited right breast US: Echotexture: Normal appearance of the glandular tissue. Shadowing: There is a stable area of shadowing at the 6 o'clock position 2 cm from the nipple. This likely reflects scarring. Cyst: None. Solid lesions: None seen. Ductal dilation: None. IMPRESSION: 1. No evidence of malignancy is noted. 2. Unless there is more urgent need, follow-up screening mammography is recommended, as per [place] [employer] guidelines. 3. The findings were discussed with the patient on the date of the examination. BI-RADS Category 2 - Benign Findings Breast Density - Category C - Heterogeneously dense Breast density Category C or D implies that the patient has dense breast tissue. Dense breast tissue can make it harder to find cancer on a mammogram. Dense breast tissue is also associated with an incr eased risk of breast cancer. This information about the result of the mammogram report was provided to the patient to raise their awareness. Use this report when you speak with the patient about their risks for breast cancer, which includes their family history. At that time, you may recommend additional screening tests (Ultrasoun d or MRI) as these tests may add significant information. A negative radiographic report should not delay biopsy if a dominant or clinically suspicious mass is present. Up to ten percent of cancers are not identified on mammography. A negative report may reinforce clinical impression. Adenosis and dense breasts may obscure an underlying neoplasm. False positive reports average 6 to 10%. Patient will receive a letter notifying them of these results.
== END 2024-08-02 02:30 ==
LOC: DI 02:10
PROVIDERS: PCP Nurse Practitioner Family; Visit Provider Radiology Radiation Oncology
DX: Z92.3 Personal history of irradiation (principal); Z12.31 Encounter for screening mammogram for malignant neoplasm of breast; N64.59 Other signs and symptoms in breast
CPT/HCPCS: 76642; 77061; 77065; G0279

== ENCOUNTER 2025-01-24 19:05 | Outpatient (REF) | payer MEDICARE, BC, SELFPAY ==
[2025-01-24 13:32] LABS: Anion Gap 9.8 mmol/L (3-11); BUN 13 mg/dL (7-18); CO2 29.2 mmol/L (21.0-32.0); CREATININE 0.8 mg/dL (0.55-1.02); Chloride 107 mmol/L (98-107); Estimated GFR 77.27 (mL/min/1.73m2); Glucose 86 mg/dL (74-106); Magnesium 1.4 mg/dL (1.8-2.4); Potassium 4.2 mmol/L (3.5-5.1); Sodium 146 mmol/L (136-145); TSH (W/Ref FT4) 0.14 uIU/mL (0.36-3.74)
== END 2025-01-24 19:06 | disposition home or self-care (01) ==
LOC: LBN 19:05
PROVIDERS: PCP Nurse Practitioner Family; Visit Provider Nurse Practitioner Family
DX: I10 Essential (primary) hypertension (principal); E83.42 Hypomagnesemia; E03.9 Hypothyroidism, unspecified
CPT/HCPCS: 80048; 83735; 84439; 84443

== ENCOUNTER 2025-02-22 02:50 | Outpatient (CLI) | payer MEDICARE, BC, SELFPAY ==
--- NOTE | 2025-02-22 | DI.MAMMO_ITS ---
Exam(s) MG MAMMO SCREENING 60 MIN DUR EXAM: MG MAMMO SCREENING 60 MIN DUR CLINICAL HISTORY: BREAST CANCER SCREENING, Z12.31, S/P XRT TO RT BREAST/AXILLA 2022,. TECHNIQUE: Bilateral full field digital CC and MLO mammographic images were obtained with 3D tomosyn thesis and utilizing computer aided detection (CAD). COMPARISON: Prior mammograms were reviewed. FINDINGS: There has been no significant change in the appearance and distribution of the fibroglandular tissue. Scarring in both breast from prior lumpectomy is appears relatively stable. There are no new spiculated masses nor new malignant appearing microcalcification groups. There is no significant architectural distortion nor skin thickening-retraction. IMPRESSION: No radiographic evidence of malignancy. Stable lumpectomy sites bilaterally BI-RADS Category 2 - Benign Findings Breast Density - Category B - There are scattered areas of fibroglandular density. Breast density Category C or D implies that the patient has dense breast tissue. Dense breast tissue can make it harder to find cancer on a mammogram. Dense breast tissue is also associated with an incr eased risk of breast cancer. This information about the result of the mammogram report was provided to the patient to raise their awareness. Use this report when you speak with the patient about their risks for breast cancer, which includes their family history. At that time, you may recommend additional screening tests (Ultrasoun d or MRI) as these tests may add significant information. A negative radiographic report should not delay biopsy if a dominant or clinically suspicious mass is present. Up to ten percent of cancers are not identified on mammography. A negative report may reinforce clinical impression. Adenosis and dense breasts may obscure an underlying neoplasm. False positive reports average 6 to 10%. Patient will receive a letter notifying them of these results.
== END 2025-02-22 03:10 ==
LOC: DI 02:50
PROVIDERS: PCP Nurse Practitioner Family; Visit Provider Radiology Radiation Oncology
DX: Z12.31 Encounter for screening mammogram for malignant neoplasm of breast (principal); R92.323 Mammographic fibroglandular density, bilateral breasts; D24.1 Benign neoplasm of right breast; D24.2 Benign neoplasm of left breast
CPT/HCPCS: 77063; 77067

== ENCOUNTER 2025-04-12 11:54 | Outpatient (CLI) | payer MEDICARE, BC, SELFPAY ==
[2025-04-12 12:46] LABS: TSH (W/Ref FT4) 0.23 uIU/mL (0.36-3.74)
== END 2025-04-12 11:55 | disposition home or self-care (01) ==
LOC: LBO 11:56
PROVIDERS: PCP Nurse Practitioner Family; Visit Provider Nurse Practitioner Family
DX: E03.9 Hypothyroidism, unspecified (principal)
CPT/HCPCS: 36415; 84439; 84443